=== PATIENT | female | born 1975 | race Caucasian/White ===

== ENCOUNTER 2016-10-07 09:25 | Emergency (ER) | payer MEDICAID ==
[2016-10-07] MEDS ORDERED: LORazepam 2 MG/ML MDV IVPUSH ONE (09:39)
[2016-10-07] MEDS ORDERED: diphenhydrAMINE 50 MG/ML SDV IVPUSH ONE (09:39)
[2016-10-07] MEDS ORDERED: Sodium Chloride 0.9% 1,000 ML IV ONE (09:39)
--- NOTE | 2016-10-07 09:40 | EDM.PDOC ---
ED HPI GENERAL MEDICAL PROBLEM - General Chief Complaint: Headache Stated Complaint: PT HAS MIGRAINE Time Seen by Provider: 10/07/16 09:40 Source of Information: Reports: Patient - History of Present Illness INITIAL COMMENTS - FREE TEXT/NARRATIVE: HISTORY AND PHYSICAL: History of present illness: []Patient has history of chronic migraines on nortriptyline she has had increased headaches 8 out of 10 today right unilateral with light sensitivity and noise sensitivity She also has concurrent sinus infection on right with copious nasal drainage tenderness on maxillary sinus and supraorbital sinus right greater than left mild symptoms on the left nares are patent copious nasal discharge on the right boggy inflamed mucosa on the left No fever nausea vomiting chills sweats Review of systems: As per history of present illness and below otherwise all systems reviewed and negative. Past medical history: As per history of present illness and as reviewed below otherwise noncontributory. Surgical history: As per history of present illness and as reviewed below otherwise noncontributory. Social history: No reported history of drug or alcohol abuse. Family history: As per history of present illness and as reviewed below otherwise noncontributory. Physical exam: HEENT: Atraumatic, normocephalic, pupils reactive, negative for conjunctival pallor or scleral icterus, mucous membranes moist, throat clear, neck supple, nontender, trachea midline. Lungs: Clear to auscultation, breath sounds equal bilaterally, chest nontender. Heart: S1S2, regular, negative for clicks, rubs, or JVD. Abdomen: Soft, nondistended, nontender. Negative for masses or hepatosplenomegaly. Negative for costovertebral tenderness. Pelvis: Stable nontender. Genitourinary: Deferred. Rectal: Deferred. Extremities: Atraumatic, negative for cords or calf pain. Neurovascular unremarkable. Neuro: Awake, alert, oriented. Cranial nerves II through XII unremarkable. Cerebellum unremarkable. Motor and sensory unremarkable throughout. Exam nonfocal. Diagnostics: [] Therapeutics: []1 L normal saline bolus Benadryl 50 mg IV Ativan 1 mg IV Bactrim double strength by mouth twice a day #20 no refill [id number] symptomatic therapies discussed Impression: []Migraine Acute sinusitis Definitive disposition and diagnosis as appropriate pending reevaluation and review of above. headache Pain Score (Numeric/FACES): 10 - Related Data Allergies Allergy/AdvReac Type Severity Reaction Status Date / Time codeine Allergy Swelling Verified 10/07/16 09:34 doxycycline Allergy Rash Verified 10/07/16 09:34 ketorolac tromethamine Allergy Hives Verified 10/07/16 09:34 [From Toradol] latex Allergy Anaphylactic Verified 10/07/16 09:34 Shock naproxen Allergy Hives Verified 10/07/16 09:34 Penicillins Allergy Rash Verified 10/07/16 09:34 tramadol Allergy Hives Verified 10/07/16 09:34 Home Meds: Home Meds ARIPiprazole [Abilify] 10 mg PO DAILY 10/07/16 [History] Nortriptyline 10 mg PO DAILY 10/07/16 [History] Past Medical History HEENT History: Reports: Other (See Below) Other HEENT History: previous migraines Cardiovascular History: Reports: None Respiratory History: Reports: Asthma Genitourinary History: Reports: None 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 , Other OB/BYN History: Molar and tubal , oophorectomy, c- sections x 2, hysterectomy Neurological History: Reports: Migraines Psychiatric History: Reports: None Endocrine/Metabolic History: Reports: Diabetes, Type II Hematologic History: Reports: None Immunologic History: Reports: None Oncologic (Cancer) History: Reports: None Dermatologic History: Reports: None - Infectious Disease History Infectious Disease History: Reports: MRSA - Past Surgical History Head Surgeries/Procedures: Reports: None HEENT Surgical History: Reports: Adenoidectomy, Myringotomy w Tube(s), Tonsillectomy GI Surgical History: Reports: Appendectomy, Cholecystectomy Female Surgical History: Reports: Section, D&C, Hysterectomy, Oophorectomy, Tubal Ligation Social & Family History - Family History Family Medical History: Noncontributory - Tobacco Use Smoking Status *Q: Current Every Day Smoker Years of Tobacco use: 30 Packs/Tins Daily: 1 - Alcohol Use Days Per Week of Alcohol Use: 0 - Recreational Drug Use Recreational Drug Use: No ED ROS GENERAL - Review of Systems Review Of Systems: ROS reveals no pertinent complaints other than HPI. ED EXAM, GENERAL - Physical Exam Exam: See Below Course - Vital Signs Last Recorded V/S: Last Vital Signs Temp 35.7 C 10/07/16 09:34 Pulse 96 10/07/16 09:34 Resp 18 10/07/16 09:34 BP 139/97 H 10/07/16 09:34 Pulse Ox 95 10/07/16 09:34 - Orders/Labs/Meds Orders: Active Orders 24 hr Category Date Time Status Sodium Chloride 0.9% [Normal Saline] 1,000 ml Med 10/07/16 09:39 Active IV STAT Medication Orders Sodium Chloride (Normal Saline) 1,000 mls @ 999 mls/hr IV STAT ONE Stop: 10/07/16 10:39 Meds: Medications Generic Name Dose Route Start Last Admin Trade Name Freq PRN Reason Stop Dose Admin Sodium Chloride 1,000 mls @ 999 mls/hr 10/07/16 09:39 Normal Saline IV 10/07/16 10:39 STAT ONE Discontinued Medications Generic Name Dose Route Start Last Admin Trade Name Freq PRN Reason Stop Dose Admin Diphenhydramine HCl 50 mg 10/07/16 09:39 Benadryl IVPUSH 10/07/16 09:40 ONETIME ONE Lorazepam 1 mg 10/07/16 09:39 Ativan IVPUSH 10/07/16 09:40 ONETIME ONE Departure - Departure Time of Disposition: 09:47 Disposition: Home, Self-Care 01 Condition: Good Clinical Impression: Migraine, Acute sinusitis - Discharge Information Forms: ED Department Discharge Additional Instructions: Medication as prescribed [id number] symptomatic therapy is discussed Return if symptoms persist or worsen Follow-up with primary care as needed The following information is given to patients seen in the emergency department who are being discharged to home. This information is to outline your options for follow-up care. We provide all patients seen in our emergency department with a follow-up referral. The need for follow-up, as well as the timing and circumstances, are variable depending upon the specifics of your emergency department visit. If you don't have a primary care physician on staff, we will provide you with a referral. We always advise you to contact your personal physician following an emergency department visit to inform them of the circumstance of the visit and for follow-up with them and/or the need for any referrals to a consulting specialist. The emergency department will also refer you to a specialist when appropriate. This referral assures that you have the opportunity for follow-up care with a specialist. All of these measure are taken in an effort to provide you with optimal care, which includes your follow-up. Under all circumstances we always encourage you to contact your private physician who remains a resource for coordinating your care. When calling for follow-up care, please make the office aware that this follow-up is from your recent emergency room visit. If for any reason you are refused follow-up, please contact the [facility] emergency department at and asked to speak to the emergency department charge nurse. - My Orders Last 24 Hours: My Active Orders 10/07/16 09:39 Sodium Chloride 0.9% [Normal Saline] 1,000 ml IV STAT - Assessment/Plan Last 24 Hours: My Active Orders 10/07/16 09:39 Sodium Chloride 0.9% [Normal Saline] 1,000 ml IV STAT
[2016-10-07] MEDS ORDERED: Meperidine PF 25 MG/ML Syringe IVPUSH ONE (10:56)
[2016-10-07] MEDS ORDERED: Meperidine PF 50 MG/ML Syringe IVPUSH ONE (11:00)
[2016-10-07 11:28] VITALS: BP 152/110
== END 2016-10-07 11:21 | disposition home or self-care (01) ==
LOC: MW.ED 09:25
DX: G43.909 Migraine, unspecified, not intractable, without status migrainosus (principal); J01.90 Acute sinusitis, unspecified; J45.909 Unspecified asthma, uncomplicated; E11.9 Type 2 diabetes mellitus without complications; F17.210 Nicotine dependence, cigarettes, uncomplicated; Z88.0 Allergy status to penicillin; Z88.6 Allergy status to analgesic agent; Z88.5 Allergy status to narcotic agent; Z90.49 Acquired absence of other specified parts of digestive tract; Z96.22 Myringotomy tube(s) status; Z98.890 Other specified postprocedural states
CPT/HCPCS: 96361; 96374; 96375; 99283; J1200; J2060; J2175; J7040; 99282

== ENCOUNTER 2016-10-26 14:05 | Emergency (ER) | payer MEDICAID ==
[2016-10-26] MEDS ORDERED: Sodium Chloride 0.9% 1,000 ML IV ONE (14:57)
[2016-10-26] MEDS ORDERED: Morphine 2 MG/ML Syringe IVPUSH ONE (15:37)
[2016-10-26] MEDS ORDERED: Ondansetron 4 MG/2 ML SDV IVPUSH ONE (15:37)
--- NOTE | 2016-10-26 15:54 | EDM.PDOC ---
ED HPI GENERAL MEDICAL PROBLEM - General Chief Complaint: Genitourinary Problem Stated Complaint: POSSIBLE KIDNEY STONES Time Seen by Provider: 10/26/16 14:06 Source of Information: Reports: Patient History Limitations: Reports: No Limitations - History of Present Illness INITIAL COMMENTS - FREE TEXT/NARRATIVE: History of present illness: []Patient is diabetic and has had diarrhea for 1 week patient thinks she is having kidney stones as her pain is more localized in her left flank radiating to her left lower quadrant. She has had kidney stones in the past and states it feels similar. She denies any fevers, chills or vomiting however she is nauseated. Review of systems: As per history of present illness and below otherwise all systems reviewed and negative. Past medical history: As per history of present illness and as reviewed below otherwise noncontributory. Surgical history: As per history of present illness and as reviewed below otherwise noncontributory. Social history: No reported history of drug or alcohol abuse. Family history: As per history of present illness and as reviewed below otherwise noncontributory. Physical exam: General: Well developed, well nourished in NAD HEENT: Atraumatic, normocephalic, pupils reactive, negative for conjunctival pallor or scleral icterus, mucous membranes moist, throat clear, neck supple, nontender, trachea midline. Lungs: Clear to auscultation, breath sounds equal bilaterally, chest nontender. Heart: S1S2, regular, negative for clicks, rubs, or JVD. Abdomen: Soft, nondistended, tender left upper quadrant and left lower quadrant without rebound or guarding. Negative for masses or hepatosplenomegaly. Negative for costovertebral tenderness. Pelvis: Stable nontender. Genitourinary: Deferred. Rectal: Deferred. Extremities: Atraumatic, negative for cords or calf pain. Neurovascular unremarkable. Neuro: Awake, alert, oriented. Cranial nerves II through XII unremarkable. Cerebellum unremarkable. Motor and sensory unremarkable throughout. Exam nonfocal. Diagnostics: []Patient had CBC and UA chemistries done showing normal white count, normal chemistries except for elevated glucose of 233 UA is negative she is not Therapeutics: []Patient was hydrated with normal saline given morphine for pain and Zofran for nausea Impression: []Diarrhea Plan: []Follow-up primary care increase fluids friend for nausea Definitive disposition and diagnosis as appropriate pending reevaluation and review of above. Left Flank to Pelvic Pain Score (Numeric/FACES): 8 - Related Data Allergies Allergy/AdvReac Type Severity Reaction Status Date / Time codeine Allergy Anaphylactic Verified 10/26/16 14:20 Shock doxycycline Allergy Rash Verified 10/26/16 14:20 ketorolac tromethamine Allergy Hives Verified 10/26/16 14:20 [From Toradol] latex Allergy Anaphylactic Verified 10/26/16 14:20 Shock naproxen Allergy Hives Verified 10/26/16 14:20 Penicillins Allergy Anaphylactic Verified 10/26/16 14:20 Shock tramadol Allergy Hives Verified 10/26/16 14:20 trazodone Allergy Hives Verified 10/26/16 14:21 valproic acid [From Depakene] Allergy Hives Verified 10/26/16 14:21 Home Meds: Home Meds ARIPiprazole [Abilify] 5 mg PO DAILY 10/07/16 [History] Nortriptyline 20 mg PO DAILY 10/07/16 [History] Insulin Regular, Human [Novolin R] 0 unit IJ ASDIRECTED 10/26/16 [History] Omeprazole 20 mg PO DAILY 10/26/16 [History] Zolpidem Tartrate [Zolpidem Tartrate] 5 mg PO DAILY 10/26/16 [History] Past Medical History HEENT History: Reports: Other (See Below) Other HEENT History: previous migraines Cardiovascular History: Reports: None Respiratory History: Reports: Asthma Genitourinary History: Reports: None 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 , Other OB/BYN History: Molar and tubal , oophorectomy, c- sections x 2, hysterectomy Neurological History: Reports: Migraines Psychiatric History: Reports: None Endocrine/Metabolic History: Reports: Diabetes, Type II Hematologic History: Reports: None Immunologic History: Reports: None Oncologic (Cancer) History: Reports: None Dermatologic History: Reports: None - Infectious Disease History Infectious Disease History: Reports: MRSA - Past Surgical History Head Surgeries/Procedures: Reports: None HEENT Surgical History: Reports: Adenoidectomy, Myringotomy w Tube(s), Tonsillectomy GI Surgical History: Reports: Appendectomy, Cholecystectomy Female Surgical History: Reports: Section, D&C, Hysterectomy, Oophorectomy, Tubal Ligation Social & Family History - Family History Family Medical History: Noncontributory - Tobacco Use Smoking Status *Q: Current Every Day Smoker Years of Tobacco use: 20 Packs/Tins Daily: 1 - Alcohol Use Days Per Week of Alcohol Use: 0 - Recreational Drug Use Recreational Drug Use: No ED ROS GENERAL - Review of Systems Review Of Systems: See Below (See history of present illness) ED EXAM, GI/ABD - Physical Exam Exam: See Below (See history of present illness) Course - Vital Signs Last Recorded V/S: Last Vital Signs Temp 36.0 C 10/26/16 14:24 Pulse 93 10/26/16 14:24 Resp 18 10/26/16 14:24 BP 136/72 10/26/16 14:24 Pulse Ox 97 10/26/16 14:24 - Orders/Labs/Meds Orders: Active Orders 24 hr Category Date Time Status Sodium Chloride 0.9% [Normal Saline] 1,000 ml Med 10/26/16 14:57 Active IV .Bolus Saline Lock Insert [OM.PC] Stat Oth 10/26/16 14:56 Ordered Medication Orders Sodium Chloride (Normal Saline) 1,000 mls @ 999 mls/hr IV .Bolus ONE Stop: 10/26/16 15:57 Last Admin: 10/26/16 15:15 Dose: 999 mls/hr Labs: Laboratory Tests 10/26/16 10/26/16 10/26/16 Range/Units 14:25 14:25 15:06 WBC 7.37 (4.0-11.0) K/uL RBC 4.35 (4.30-5.90) M/uL Hgb 13.2 (12.0-16.0) g/dL Hct 39.4 (36.0-46.0) % MCV 90.6 (80.0-98.0) fL MCH 30.3 (27.0-32.0) pg MCHC 33.5 (31.0-37.0) g/dL RDW Std Deviation 43.7 (28.0-62.0) fl RDW Coeff of Lora 13 (11.0-15.0) % Plt Count 283 (150-400) K/uL MPV 9.40 (7.40-12.00) fL Neut % (Auto) 44.6 L (48.0-80.0) % Lymph % (Auto) 45.9 H (16.0-40.0) % [place] % (Auto) 4.6 (0.0-15.0) % Eos % (Auto) 4.5 (0.0-7.0) % Baso % (Auto) 0.4 (0.0-1.5) % Neut # (Auto) 3.3 (1.4-5.7) K/uL Lymph # (Auto) 3.4 H (0.6-2.4) K/uL [place] # (Auto) 0.3 (0.0-0.8) K/uL Eos # (Auto) 0.3 (0.0-0.7) K/uL Baso # (Auto) 0.0 (0.0-0.1) K/uL Nucleated RBC % 0.0 /100WBC Nucleated RBCs # 0 K/uL Lactate (0.20-2.00) mmol/L Sodium (136-146) mmol/L Potassium (3.5-5.1) mmol/L Chloride (98-110) mmol/L Carbon Dioxide (21-31) mmol/L BUN (6.0-23.0) mg/dL Creatinine (0.6-1.5) mg/dL Est Cr Clr Drug Dosing mL/min Estimated GFR (MDRD) ml/min Glucose (60-110) mg/dL Calcium (8.8-10.8) mg/dL Total Bilirubin (0.1-1.5) mg/dL AST (5-40) IU/L ALT (8-54) IU/L Alkaline Phosphatase (40-150) Total Protein (6.0-8.0) g/dL Albumin (3.5-5.0) g/dL Globulin (2.0-3.5) g/dL Albumin/Globulin Ratio (1.3-2.8) Urine Color YELLOW Urine Appearance CLEAR Urine pH 5.5 (5.0-8.0) Ur Specific [place] 1.025 (1.001-1.035) Urine Protein NEGATIVE (NEGATIVE) mg/dL Urine Glucose (UA) 250 H (NEGATIVE) mg/dL Urine Ketones NEGATIVE (NEGATIVE) mg/dL Urine Occult Blood NEGATIVE (NEGATIVE) Urine Nitrite NEGATIVE (NEGATIVE) Urine Bilirubin NEGATIVE (NEGATIVE) Urine Urobilinogen 0.2 (<2.0) EU/dL Ur Leukocyte Esterase NEGATIVE (NEGATIVE) Urine RBC 0-1 (0-2/HPF) Urine WBC 0-1 (0-5/HPF) Ur Epithelial Cells OCCASIONAL (NONE-FEW) Urine Bacteria RARE (NEGATIVE) Urine HCG, Qual NEGATIVE (NEGATIVE) 10/26/16 10/26/16 Range/Units 15:06 15:06 WBC (4.0-11.0) K/uL RBC (4.30-5.90) M/uL Hgb (12.0-16.0) g/dL Hct (36.0-46.0) % MCV (80.0-98.0) fL MCH (27.0-32.0) pg MCHC (31.0-37.0) g/dL RDW Std Deviation (28.0-62.0) fl RDW Coeff of Lora (11.0-15.0) % Plt Count (150-400) K/uL MPV (7.40-12.00) fL Neut % (Auto) (48.0-80.0) % Lymph % (Auto) (16.0-40.0) % [place] % (Auto) (0.0-15.0) % Eos % (Auto) (0.0-7.0) % Baso % (Auto) (0.0-1.5) % Neut # (Auto) (1.4-5.7) K/uL Lymph # (Auto) (0.6-2.4) K/uL [place] # (Auto) (0.0-0.8) K/uL Eos # (Auto) (0.0-0.7) K/uL Baso # (Auto) (0.0-0.1) K/uL Nucleated RBC % /100WBC Nucleated RBCs # K/uL Lactate 2.0 (0.20-2.00) mmol/L Sodium 134 L (136-146) mmol/L Potassium 4.2 (3.5-5.1) mmol/L Chloride 100 (98-110) mmol/L Carbon Dioxide 23 (21-31) mmol/L BUN 24 H (6.0-23.0) mg/dL Creatinine 1.2 (0.6-1.5) mg/dL Est Cr Clr Drug Dosing 51.03 mL/min Estimated GFR (MDRD) 49.5 ml/min Glucose 233 H (60-110) mg/dL Calcium 9.3 (8.8-10.8) mg/dL Total Bilirubin 0.2 (0.1-1.5) mg/dL AST 19 (5-40) IU/L ALT 31 (8-54) IU/L Alkaline Phosphatase 98 (40-150) Total Protein 7.3 (6.0-8.0) g/dL Albumin 3.9 (3.5-5.0) g/dL Globulin 3.4 (2.0-3.5) g/dL Albumin/Globulin Ratio 1.2 L (1.3-2.8) Urine Color Urine Appearance Urine pH (5.0-8.0) Ur Specific [place] (1.001-1.035) Urine Protein (NEGATIVE) mg/dL Urine Glucose (UA) (NEGATIVE) mg/dL Urine Ketones (NEGATIVE) mg/dL Urine Occult Blood (NEGATIVE) Urine Nitrite (NEGATIVE) Urine Bilirubin (NEGATIVE) Urine Urobilinogen (<2.0) EU/dL Ur Leukocyte Esterase (NEGATIVE) Urine RBC (0-2/HPF) Urine WBC (0-5/HPF) Ur Epithelial Cells (NONE-FEW) Urine Bacteria (NEGATIVE) Urine HCG, Qual (NEGATIVE) Meds: Medications Generic Name Dose Route Start Last Admin Trade Name Freq PRN Reason Stop Dose Admin Sodium Chloride 1,000 mls @ 999 mls/hr 10/26/16 14:57 10/26/16 15:15 Normal Saline IV 10/26/16 15:57 999 mls/hr .Bolus ONE Administration Discontinued Medications Generic Name Dose Route Start Last Admin Trade Name Freq PRN Reason Stop Dose Admin Morphine Sulfate 4 mg 10/26/16 15:37 10/26/16 15:43 Morphine IVPUSH 10/26/16 15:38 4 mg ONETIME ONE Administration Ondansetron HCl 4 mg 10/26/16 15:37 10/26/16 15:43 Zofran IVPUSH 10/26/16 15:38 4 mg ONETIME ONE Administration Departure - Departure Time of Disposition: 15:53 Disposition: Home, Self-Care 01 Condition: Good Clinical Impression: Diarrhea Qualifiers: Diarrhea type: unspecified type Qualified Code(s): R19.7 - Diarrhea, unspecified - Discharge Information Forms: ED Department Discharge Additional Instructions: The following information is given to patients seen in the emergency department who are being discharged to home. This information is to outline your options for follow-up care. We provide all patients seen in our emergency department with a follow-up referral. The need for follow-up, as well as the timing and circumstances, are variable depending upon the specifics of your emergency department visit. If you don't have a primary care physician on staff, we will provide you with a referral. We always advise you to contact your personal physician following an emergency department visit to inform them of the circumstance of the visit and for follow-up with them and/or the need for any referrals to a consulting specialist. The emergency department will also refer you to a specialist when appropriate. This referral assures that you have the opportunity for follow-up care with a specialist. All of these measure are taken in an effort to provide you with optimal care, which includes your follow-up. Under all circumstances we always encourage you to contact your private physician who remains a resource for coordinating your care. When calling for follow-up care, please make the office aware that this follow-up is from your recent emergency room visit. If for any reason you are refused follow-up, please contact the [facility] Emergency Department at and asked to speak to the emergency department charge nurse. Increase fluids, Zofran for nausea, Tylenol for pain return if symptoms worsen or change or follow-up with your primary care physician [facility] [address] [place] [id number] - My Orders Last 24 Hours: My Active Orders 10/26/16 14:56 Saline Lock Insert [OM.PC] Stat 10/26/16 14:57 Sodium Chloride 0.9% [Normal Saline] 1,000 ml IV .Bolus - Assessment/Plan Last 24 Hours: My Active Orders 10/26/16 14:56 Saline Lock Insert [OM.PC] Stat 10/26/16 14:57 Sodium Chloride 0.9% [Normal Saline] 1,000 ml IV .Bolus
[2016-10-26] MEDS ORDERED: Alum Hydrox/Mag Hydrox/Simeth 15 ML, Lidocaine 2% 5 ML PO ONE ×2 (16:02)
[2016-10-26 16:42] VITALS: BP 126/89
== END 2016-10-26 16:41 | disposition home or self-care (01) ==
LOC: MW.ED 14:05
DX: R19.7 Diarrhea, unspecified (principal); J45.909 Unspecified asthma, uncomplicated; E11.9 Type 2 diabetes mellitus without complications; F17.210 Nicotine dependence, cigarettes, uncomplicated; Z88.5 Allergy status to narcotic agent; Z88.0 Allergy status to penicillin; Z88.1 Allergy status to other antibiotic agents; Z79.4 Long term (current) use of insulin; Z96.22 Myringotomy tube(s) status; Z90.49 Acquired absence of other specified parts of digestive tract; Z90.710 Acquired absence of both cervix and uterus; Z98.890 Other specified postprocedural states
CPT/HCPCS: 36415; 80053; 81001; 81025; 83605; 85025; 96361; 96374; 96375; 99284; A9270; J2270; J2405; J7040

== ENCOUNTER 2016-11-07 06:26 | Day surgery (SDC) | payer MEDICAID ==
[2016-11-07] MEDS ORDERED: Bupivacaine 0.25%/EPINEPHrine 1:200,000 10 ML SDV INJECT ONE (07:00)
[2016-11-07] MEDS ORDERED: Acetaminophen/HYDROcodone 325-5 MG Tab PO PRN (07:00)
[2016-11-07] MEDS ORDERED: Lactated Ringers 1,000 ML IV SCH (07:00)
[2016-11-07] MEDS ORDERED: Lidocaine 2% 5 ML SDV ONE (07:16)
[2016-11-07] MEDS ORDERED: fentaNYL 100 MCG/2 ML SDV ONE ×2 (07:16→08:16)
[2016-11-07] MEDS ORDERED: Propofol 200 MG/20 ML SDV ONE (07:16)
[2016-11-07] MEDS ORDERED: Midazolam 1 MG/ML 2 ML SDV ONE (07:16)
--- NOTE | 2016-11-07 07:20 | PCM.PREANE ---
Preanesthetic Assessment - Anesthesia/Transfusion/Family Hx Anesthesia History: Prior Anesthesia Without Reaction Other Type of Anesthesia Reaction Comment: aspirated in dental office under sedation for teeth removal Family History of Anesthesia Reaction: No Transfusion History: Prior Transfusion Without Reaction Intubation History: Unknown - Review of Systems General: No Symptoms Pulmonary: No Symptoms Cardiovascular: No Symptoms Gastrointestinal: No Symptoms Neurological: No Symptoms Other: Reports: None - Physical Assessment Height: 1.6 m Weight: 98.43 kg ASA Class: 2 Mental Status: Alert & Oriented x3 Airway Class: Mallampati = 3 Dentition: Reports: Normal Dentition Thyro-Mental Finger Breadths: 3 Mouth Opening Finger Breadths: 3 ROM/Head Extension: Full Lungs: Clear to Auscultation, Normal Respiratory Effort Cardiovascular: Regular Rate, Regular Rhythm - Allergies Allergies/Adverse Reactions: Allergies Allergy/AdvReac Type Severity Reaction Status Date / Time codeine Allergy Anaphylactic Verified 10/26/16 14:20 Shock doxycycline Allergy Rash Verified 10/26/16 14:20 ketorolac tromethamine Allergy Hives Verified 10/26/16 14:20 [From Toradol] latex Allergy Anaphylactic Verified 10/26/16 14:20 Shock naproxen Allergy Airway Verified 11/04/16 16:06 Tightness Penicillins Allergy Anaphylactic Verified 10/26/16 14:20 Shock tramadol Allergy Hives Verified 10/26/16 14:20 trazodone Allergy Hives Verified 10/26/16 14:21 valproic acid [From Depakene] Allergy Hives Verified 10/26/16 14:21 - Blood Blood Available: No - Anesthesia Plan Pre-Op Medication Ordered: None - Acknowledgements Anesthesia Type Planned: MAC Pt an Appropriate Candidate for the Planned Anesthesia: Yes Alternatives and Risks of Anesthesia Discussed w Pt/Guardian: Yes Pt/Guardian Understands and Agrees with Anesthesia Plan: Yes PreAnesthesia Questionnaire HEENT History: Reports: Other (See Below) Other HEENT History: wears glasses Cardiovascular History: Reports: None Respiratory History: Reports: Asthma, Sleep Apnea Other Respiratory History: was tested and told she had sleep apnea, has never had a CPAP Gastrointestinal History: Reports: GERD Genitourinary History: Reports: Renal Calculus Other Genitourinary History: able to pass stones 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 OB/BYN History: Molar and tubal , oophorectomy, c- sections x 2, hysterectomy Musculoskeletal History: Reports: Back Pain, Chronic, Neck Pain, Chronic, Other (See Below) Other Musculoskeletal History: degenerative spine disease Neurological History: Reports: Migraines, Other (See Below) Other Neuro History: has ruptured cervical discs Psychiatric History: Reports: Anxiety, Depression, Hallucinations, OCD, PTSD, Other (See Below) (post-traumatic stress syndrome, insomnia, MAJOR ANXIETY AND PANIC ATTACKS) Endocrine/Metabolic History: Reports: Diabetes, Type II, Obesity/BMI 30+ Hematologic History: Reports: Blood Transfusion(s) Immunologic History: Reports: Other (See Below) Other Immunologic History: MRSA Oncologic (Cancer) History: Reports: None Dermatologic History: Reports: Other (See Below) Other Dermatologic History: 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 - Infectious Disease History Infectious Disease History: Reports: MRSA - Past Surgical History Head Surgeries/Procedures: Reports: None HEENT Surgical History: Reports: Adenoidectomy, Myringotomy w Tube(s), Tonsillectomy GI Surgical History: Reports: Appendectomy, Cholecystectomy Female Surgical History: Reports: Section (x3), Oophorectomy, Other (See Below) Other Female Surgeries/Procedures: Laparoscopies x2 Musculoskeletal Surgical History: Reports: None - SUBSTANCE USE Smoking Status *Q: Current Every Day Smoker (< 1ppd) Tobacco Use Within Last Twelve Months: Cigarettes Days Per Week of Alcohol Use: 0 Recreational Drug Use History: No - HOME MEDS Home Medications: Home Meds ARIPiprazole [Abilify] 5 mg PO DAILY 10/07/16 [History] Nortriptyline 20 mg PO BEDTIME 10/07/16 [History] Omeprazole 20 mg PO DAILY 10/26/16 [History] Zolpidem Tartrate [Zolpidem Tartrate] 5 mg PO BEDTIME 10/26/16 [History] Albuterol Sulfate [Proair Hfa] 1 puff INH ASDIRECTED PRN 11/04/16 [History] Insulin Aspart [NovoLOG] 0 units SQ ASDIRECTED 11/04/16 [History] Phenazopyridine HCl [Pyridium] 200 mg PO BID 11/04/16 [History] Sertraline [Zoloft] 50 mg PO DAILY 11/04/16 [History] - CURRENT (IN HOUSE) MEDS Current Meds: Current Medications Hydrocodone Bitart/Acetaminophen ([place] 325-5 Mg) 1 tab PO Q4H PRN PRN Reason: Pain Lactated Ringer's (Ringers, Lactated) 1,000 mls @ 125 mls/hr IV ASDIRECTED MARYANA Last Admin: 11/07/16 06:52 Dose: 125 mls/hr Clindamycin Phosphate 600 mg/ (Premix) 50 mls @ 100 mls/hr IV ONETIME ONE Stop: 11/07/16 07:59 Last Admin: 11/07/16 06:58 Dose: 100 mls/hr Discontinued Medications Bupivacaine HCl/Epinephrine Bitart (Marcaine 0.25%/Epinephrine 1:200,000) 10 ml INJECT ONETIME ONE Stop: 11/07/16 07:01
[2016-11-07] MEDS ORDERED: Bupivacaine 0.25%/EPINEPHrine 1:200,000 10 ML SDV ONE ×2 (07:26→09:33)
[2016-11-07] MEDS ORDERED: Clindamycin Phosphate in D5W 600 MG in Premix Bag 50 BAG IV ONE ×2 (07:30)
[2016-11-07] MEDS ORDERED: diphenhydrAMINE 50 MG/ML SDV ONE (07:31)
[2016-11-07 09:58] VITALS: BP 127/73
--- NOTE | 2016-11-10 08:44 | PCM.OPNOTE ---
- General Post-Op/Procedure Note Date of Surgery/Procedure: 11/07/16 Operative Procedure(s): right carpal tunnel release, excision of left arm lesion 3cm with intermediate 3cm repair and excision of scalp lesion 1.5cm with simple repair, scar revision of the left eye webbing with local z plasties ( jumping man flap) 2.5cm2 total area. Pre Op Diagnosis: right carpla tunnel syndrome, 2 skin lesions and left eye canthal webbing from previous scar. Post-Op Diagnosis: Same Anesthesia Technique: General LMA Primary Surgeon: Janice Agee Gardener: Kiara Spence Complications: None Condition: Good
--- NOTE | 2016-11-10 14:29 | OR ---
SURGEON: GAYLE VALDES MD DATE OF PROCEDURE: 11/07/2016 PREOPERATIVE DIAGNOSES: 1. Right carpal tunnel syndrome. 2. Left eye medial canthal webbing. 3. 2 cm left arm, irritated red lesion. 4. Posterior scalp 1 cm lesion. POSTOPERATIVE DIAGNOSES: 1. Right carpal tunnel syndrome. 2. Left eye medial canthal webbing. 3. 2 cm left arm, irritated red lesion. 4. Posterior scalp 1 cm lesion. PROCEDURES: 1. Right carpal tunnel release. 2. Excision of left arm lesion 3 cm intermediate repair. 3. Excision of scalp lesion 1.5 cm with simple repair. 4. Scar revision of left eye webbing, with a local Z-plasty jumping man flap for 2.5 cm total area of local tissue rearrangement. INDICATIONS: Ms. Weinstein is a 41-year-old female with right carpal tunnel syndrome. Risks and benefits of right carpal tunnel release in addition to excision of the left arm lesion and scalp lesion with revision of the left inner canthal webbing was discussed with her. She would like to proceed. Risks were including, but not limited to, bleeding, infection, damage to underlying or overlying structures, possible need for future interventions and possible scarring. ANESTHESIA: General LMA. REHAB SERVICES AIDE: CHELY Kingsley. PROCEDURE IN DETAIL: After informed consent was obtained and placed on the chart, the patient was brought to the operating theater in supine position. After adequate general LMA anesthesia, the area was prepped and draped, a time-out was completed to confirm side and site. Attention was then paid to the right carpal tunnel 1st. A 15 blade was used to dissect through skin and subcutaneous tissues after the arm was exsanguinated and tourniquet was inflated to 200 mmHg. Once adequately done, dissection was carried through the skin and subcutaneous tissues until complete release of ligament. Dissection was then carried distally and proximally under direct visualization using a Littler scissor. Once adequately released attention was paid to irrigation and closure using a 5-0 nylon stitch in a horizontal mattress fashion. The tourniquet was deflated. The wound was dressed with Xeroform, fluffs, and a Kerlix gauze dressing and a 2-inch BRANDT wrap. The patient tolerated this well. Attention was then paid to the left arm and left posterior scalp lesion. These were prepped with Betadine and excised in an elliptical fashion after local anesthesia. Once adequately excised, the wounds were closed in an intermediate fashion on the left arm for total of 3 cm and simple closure on the scalp for 1.5 cm. These were dressed with Steri-Strips and Tegaderm on the arm and bacitracin scalp. Attention was then paid to the left eye lesion which was prepped and draped with Betadine cleansing solution and anesthetized with 0.25% Marcaine in a field block. Once adequately prepped, a jumping man flap was designed for local transposition of the tissues for total of 2.5 cm. Once this was designed, it was cut and in laid in the appropriate fashion to allow release of the wedding of the inner canthal area. Once this was completed, it was sutured in place using deep Monocryl stitches and 5-0 chromic for the skin. The patient tolerated this well and all counts of needles were correct at the end the case. FOLLOWUP INSTRUCTIONS: The patient will see us in clinic in approximately 10 days or sooner if any problems, questions, or concerns. The patient was given a prescription for pain control. GORAN / IDA /[id number]
== END 2016-11-07 09:45 | disposition home or self-care (01) ==
LOC: MW.SDS 06:26
PROVIDERS: ATTEND Plastic Surgery
PROC: 01N50ZZ Release Median Nerve, Open Approach (ICD-10-PCS; principal; 2016-11-07)
DX: D23.62 Other benign neoplasm of skin of left upper limb, including shoulder (principal); L82.1 Other seborrheic keratosis; G56.01 Carpal tunnel syndrome, right upper limb; H02.89 Other specified disorders of eyelid; G43.709 Chronic migraine without aura, not intractable, without status migrainosus; E11.9 Type 2 diabetes mellitus without complications; F41.0 Panic disorder [episodic paroxysmal anxiety]; J45.909 Unspecified asthma, uncomplicated; K21.9 Gastro-esophageal reflux disease without esophagitis; F17.210 Nicotine dependence, cigarettes, uncomplicated; G47.30 Sleep apnea, unspecified; E66.9 Obesity, unspecified; Z87.442 Personal history of urinary calculi; Z86.14 Personal history of Methicillin resistant Staphylococcus aureus infection; Z88.0 Allergy status to penicillin; Z88.1 Allergy status to other antibiotic agents; Z88.5 Allergy status to narcotic agent; Z88.6 Allergy status to analgesic agent; Z88.8 Allergy status to other drugs, medicaments and biological substances; Z91.040 Latex allergy status; Z79.4 Long term (current) use of insulin; Z79.899 Other long term (current) drug therapy; Z90.49 Acquired absence of other specified parts of digestive tract; Z90.710 Acquired absence of both cervix and uterus; Z90.721 Acquired absence of ovaries, unilateral; Z90.89 Acquired absence of other organs; Z98.890 Other specified postprocedural states; Z68.38 Body mass index [BMI] 38.0-38.9, adult
CPT/HCPCS: 11402; 11421; 12032; 14060; 64721; 82962; J1200; J2250; J3010; J7120; 00300; 88305; J2704

== ENCOUNTER 2017-04-17 13:26 | Emergency (ER) | payer MEDICAID ==
[2017-04-17 14:33] VITALS: BP 118/73
--- NOTE | 2017-04-17 14:59 | EDM.PDOC ---
ED HPI GENERAL MEDICAL PROBLEM - General Chief Complaint: Back Pain or Injury Stated Complaint: BACK AND HEAD PAIN Time Seen by Provider: 04/17/17 14:46 Source of Information: Reports: Patient History Limitations: Reports: No Limitations - History of Present Illness INITIAL COMMENTS - FREE TEXT/NARRATIVE: History of present illness: []Patient was in a store parking lot getting out of her truck and when she put her foot down she slid on the ice hitting the right side of her head on her truck door and landing on the ground. She immediately ambulated into the store to file an incident report then came to the ER complaining of pain in her head, neck, bilateral pelvic, low back and right elbow. Loss of consciousness. Patient complains of blurry vision and states that it's probably just her glucose. She has not had any vomiting or a headache, she denies any numbness or tingling in her extremities, abdominal pain, difficulty walking or pain anywhere else. Review of systems: As per history of present illness and below otherwise all systems reviewed and negative. Past medical history: As per history of present illness and as reviewed below otherwise noncontributory. Surgical history: As per history of present illness and as reviewed below otherwise noncontributory. Social history: No reported history of drug or alcohol abuse. Family history: As per history of present illness and as reviewed below otherwise noncontributory. Physical exam: General: Well developed, well nourished in NAD HEENT: Atraumatic, normocephalic, no scalp contusion or ecchymosis, pupils reactive, negative for conjunctival pallor or scleral icterus, mucous membranes moist, throat clear, TMs are clear neck supple no step-offs or tenderness to palpation, trachea midline. TMs show no hemotympanum, is no blood in her nares. Lungs: Clear to auscultation, breath sounds equal bilaterally, chest nontender. No crepitance Heart: S1S2, regular, negative for clicks, rubs, or JVD. Abdomen: Soft, nondistended, nontender. Negative for masses or hepatosplenomegaly. Negative for costovertebral tenderness. Low back diffuse tenderness bilateral lumbar area no vertebral tenderness there is no skin changes or ecchymosis. Pelvis: Stable to rock and nontender Genitourinary: Deferred. Rectal: Deferred. Extremities: Atraumatic, right elbow shows no sign of ecchymosis, swelling or contusion, MVI distally. negative for cords or calf pain. Neurovascular unremarkable. Neuro: Awake, alert, oriented. Cranial nerves II through XII unremarkable. Cerebellum unremarkable. Motor and sensory unremarkable throughout. Exam nonfocal. Diagnostics: []Glucose is 184, patient declined x-rays Therapeutics: []Percocet Norflex in the ED Impression: []Fall right elbow contusion, right scalp contusion, cervical and lumbar strain Plan: []Follow-up with Dr. Cartagena next week, Percocet and Flexeril for pain. Definitive disposition and diagnosis as appropriate pending reevaluation and review of above. Back Pain Score (Numeric/FACES): 5 - Related Data Allergies Allergy/AdvReac Type Severity Reaction Status Date / Time codeine Allergy Anaphylactic Verified 10/26/16 14:20 Shock doxycycline Allergy Rash Verified 10/26/16 14:20 ketorolac tromethamine Allergy Hives Verified 10/26/16 14:20 [From Toradol] latex Allergy Anaphylactic Verified 10/26/16 14:20 Shock naproxen Allergy Airway Verified 11/04/16 16:06 Tightness Penicillins Allergy Anaphylactic Verified 10/26/16 14:20 Shock tramadol Allergy Hives Verified 10/26/16 14:20 trazodone Allergy Hives Verified 10/26/16 14:21 valproic acid [From Depakene] Allergy Hives Verified 10/26/16 14:21 Home Meds: Home Meds ARIPiprazole [Abilify] 5 mg PO DAILY 10/07/16 [History] Nortriptyline 20 mg PO BEDTIME 10/07/16 [History] Omeprazole 20 mg PO DAILY 10/26/16 [History] Zolpidem Tartrate 5 mg PO BEDTIME 10/26/16 [History] Albuterol Sulfate [Proair Hfa] 1 puff INH ASDIRECTED PRN 11/04/16 [History] Insulin Aspart [NovoLOG] 0 units SQ ASDIRECTED 11/04/16 [History] Phenazopyridine HCl [Pyridium] 200 mg PO BID 11/04/16 [History] Sertraline [Zoloft] 50 mg PO DAILY 11/04/16 [History] Acetaminophen/HYDROcodone [[place] 325-5 MG] 1 tab PO Q4H PRN #30 tablet 11/07/16 [Rx] Cyclobenzaprine [Flexeril] 10 mg PO BID PRN #16 tab 04/17/17 [Rx] Diclofenac Sodium [IJD: Diclofenac Sodium] 75 mg PO .TWICE DAILY W MEALS PRN # 16 tab.ec 04/17/17 [Rx] Past Medical History HEENT History: Reports: Other (See Below) Other HEENT History: previous migraines Cardiovascular History: Reports: None Respiratory History: Reports: Asthma Other Respiratory History: was tested and told she had sleep apnea, has never had a CPAP Gastrointestinal History: Reports: GERD Genitourinary History: Reports: None Other Genitourinary History: able to pass stones 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 , Other OB/BYN History: Molar and tubal , oophorectomy, c- sections x 2, hysterectomy Musculoskeletal History: Reports: Back Pain, Chronic, Neck Pain, Chronic, Other (See Below) Other Musculoskeletal History: degenerative spine disease Neurological History: Reports: Migraines Other Neuro History: has ruptured cervical discs Psychiatric History: Reports: Anxiety, Depression, Hallucinations, OCD, PTSD, Other (See Below) (post-traumatic stress syndrome, insomnia, MAJOR ANXIETY AND PANIC ATTACKS) Endocrine/Metabolic History: Reports: Diabetes, Type II Hematologic History: Reports: None Immunologic History: Reports: None Other Immunologic History: MRSA Oncologic (Cancer) History: Reports: None Dermatologic History: Reports: None Other Dermatologic History: 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 - Infectious Disease History Infectious Disease History: Reports: MRSA - Past Surgical History Female Surgical History: Reports: Section, D&C, Hysterectomy, Oophorectomy, Tubal Ligation Social & Family History - Family History Family Medical History: Noncontributory - Tobacco Use Smoking Status *Q: Current Every Day Smoker (< 1ppd) Years of Tobacco use: 20 Packs/Tins Daily: 1 - Caffeine Use Caffeine Use: Reports: Coffee, Tea - Alcohol Use Days Per Week of Alcohol Use: 0 - Recreational Drug Use Recreational Drug Use: No Drug Use in Last 12 Months: No ED ROS GENERAL - Review of Systems Review Of Systems: See Below (See history of present illness) ED EXAM, GENERAL - Physical Exam Exam: See Below (See history of present illness) Course - Vital Signs Last Recorded V/S: Last Vital Signs Temp 97.7 F 04/17/17 14:30 Pulse 80 04/17/17 14:30 Resp 12 04/17/17 14:30 BP 118/73 04/17/17 14:30 Pulse Ox 94 L 04/17/17 14:30 - Orders/Labs/Meds Orders: Active Orders 24 hr Category Date Time Status POC Glucose [Blood Glucose Check, Bedside] [] ONETIME Care 04/17/17 14:51 Ordered Departure - Departure Time of Disposition: 15:10 Disposition: Home, Self-Care 01 Condition: Good Clinical Impression: Pain of multiple sites Fall Qualifiers: Encounter type: initial encounter Qualified Code(s): W19.XXXA - Unspecified fall, initial encounter - Discharge Information Prescriptions: Cyclobenzaprine [Flexeril] 10 mg PO BID PRN #16 tab PRN Reason: Pain Diclofenac Sodium [IJD: Diclofenac Sodium] 75 mg PO .TWICE DAILY W MEALS PRN # 16 tab.ec PRN Reason: Pain Referrals: Jose Cartagena MD [Primary Care Provider] - Additional Instructions: The following information is given to patients seen in the emergency department who are being discharged to home. This information is to outline your options for follow-up care. We provide all patients seen in our emergency department with a follow-up referral. The need for follow-up, as well as the timing and circumstances, are variable depending upon the specifics of your emergency department visit. If you don't have a primary care physician on staff, we will provide you with a referral. We always advise you to contact your personal physician following an emergency department visit to inform them of the circumstance of the visit and for follow-up with them and/or the need for any referrals to a consulting specialist. The emergency department will also refer you to a specialist when appropriate. This referral assures that you have the opportunity for follow-up care with a specialist. All of these measure are taken in an effort to provide you with optimal care, which includes your follow-up. Under all circumstances we always encourage you to contact your private physician who remains a resource for coordinating your care. When calling for follow-up care, please make the office aware that this follow-up is from your recent emergency room visit. If for any reason you are refused follow-up, please contact the [facility] Department at and asked to speak to the emergency department charge nurse. Percocet Flexeril for pain use ice to right elbow, neck, back and head. Follow-up with Dr. Cartagena next week return for if any symptoms worsen or change - My Orders Last 24 Hours: My Active Orders 04/17/17 14:51 POC Glucose [Blood Glucose Check, Bedside] [RC] ONETIME - Assessment/Plan Last 24 Hours: My Active Orders 04/17/17 14:51 POC Glucose [Blood Glucose Check, Bedside] [RC] ONETIME
[2017-04-17] MEDS ORDERED: Acetaminophen/oxyCODONE 325-5 MG Tab PO ONE (15:01)
== END 2017-04-17 15:35 | disposition home or self-care (01) ==
LOC: MW.ED 13:26
DX: S39.012A Strain of muscle, fascia and tendon of lower back, initial encounter (principal); S16.1XXA Strain of muscle, fascia and tendon at neck level, initial encounter; S50.01XA Contusion of right elbow, initial encounter; S00.03XA Contusion of scalp, initial encounter; J45.909 Unspecified asthma, uncomplicated; F32.9 Major depressive disorder, single episode, unspecified; F41.0 Panic disorder [episodic paroxysmal anxiety]; E11.9 Type 2 diabetes mellitus without complications; F17.210 Nicotine dependence, cigarettes, uncomplicated; K21.9 Gastro-esophageal reflux disease without esophagitis; Z79.4 Long term (current) use of insulin; Z79.899 Other long term (current) drug therapy; Z88.0 Allergy status to penicillin; Z88.1 Allergy status to other antibiotic agents; Z88.5 Allergy status to narcotic agent; Z88.6 Allergy status to analgesic agent; Z91.040 Latex allergy status; Z88.8 Allergy status to other drugs, medicaments and biological substances; V83.4XXA Person injured while boarding or alighting from special industrial vehicle, initial encounter; Y92.481 Parking lot as the place of occurrence of the external cause
CPT/HCPCS: 82962; 96372; 99283; A9270; J2360; 99284

== ENCOUNTER 2017-10-01 07:04 | Emergency (ER) | payer MEDICAID ==
[2017-10-01] MEDS ORDERED: Sodium Chloride 0.9% 10 ML Syringe FLUSH PRN (07:47)
[2017-10-01] MEDS ORDERED: Ondansetron 4 MG/2 ML SDV IVPUSH ONE (07:47)
[2017-10-01] MEDS ORDERED: Sodium Chloride 0.9% 1,000 ML IV ONE (07:47)
[2017-10-01] MEDS ORDERED: Sodium Chloride 0.9% 2.5 ML Syringe FLUSH PRN (07:47)
--- NOTE | 2017-10-01 07:50 | EDM.PDOC ---
ED HPI GENERAL MEDICAL PROBLEM - General Chief Complaint: Flank Pain Stated Complaint: KIDNEY STONES Time Seen by Provider: 10/01/17 07:15 Source of Information: Reports: Patient History Limitations: Reports: No Limitations - History of Present Illness INITIAL COMMENTS - FREE TEXT/NARRATIVE: History of present illness: []Patient has had a 10 day history of right flank pain that is worsening the last 2 days. She denies any fevers, chills, diarrhea or vomiting she complains of nausea. Patient has urinary hesitancy this morning she denies any blood in her urine or pain with urination. Review of systems: As per history of present illness and below otherwise all systems reviewed and negative. Past medical history: As per history of present illness and as reviewed below otherwise noncontributory. Surgical history: As per history of present illness and as reviewed below otherwise noncontributory. Social history: No reported history of drug or alcohol abuse. Family history: As per history of present illness and as reviewed below otherwise noncontributory. Physical exam: General: Well developed, well nourished in NAD HEENT: Atraumatic, normocephalic, pupils reactive, negative for conjunctival pallor or scleral icterus, mucous membranes moist, throat clear, neck supple, nontender, trachea midline. Lungs: Clear to auscultation, breath sounds equal bilaterally, chest nontender. Heart: S1S2, regular, negative for clicks, rubs, or JVD. Abdomen: Soft, nondistended, mild right upper abdominal tenderness no rebound or guarding. Negative for masses or hepatosplenomegaly. Mild right costovertebral tenderness. Pelvis: Stable nontender. Genitourinary: Deferred. Rectal: Deferred. Extremities: Atraumatic, negative for cords or calf pain. Neurovascular unremarkable. Neuro: Awake, alert, oriented. Cranial nerves II through XII unremarkable. Cerebellum unremarkable. Motor and sensory unremarkable throughout. Exam nonfocal. Diagnostics: []CBC normal chemistry normal except glucose of 226, LFTs slightly elevated UA negative for UTI, ultrasound shows fatty liver and hepatic cyst otherwise negative Therapeutics: []Morphine, Zofran, IV fluid. Impression: []Low back pain Plan: []Tramadol for pain follow-up with primary care use ice and heat to the back request physical therapy Definitive disposition and diagnosis as appropriate pending reevaluation and review of above. Right Flank Pain Score (Numeric/FACES): 8 - Related Data Allergies Allergy/AdvReac Type Severity Reaction Status Date / Time codeine Allergy Anaphylactic Verified 10/01/17 07:44 Shock doxycycline Allergy Rash Verified 10/01/17 07:44 ketorolac tromethamine Allergy Hives Verified 10/01/17 07:44 [From Toradol] latex Allergy Anaphylactic Verified 10/01/17 07:44 Shock naproxen Allergy Airway Verified 10/01/17 07:44 Tightness Penicillins Allergy Anaphylactic Verified 10/01/17 07:44 Shock tramadol Allergy Hives Verified 10/01/17 07:44 trazodone Allergy Hives Verified 10/01/17 07:44 valproic acid [From Depakene] Allergy Hives Verified 10/01/17 07:44 Home Meds: Home Meds Omeprazole 1 tab PO DAILY 10/26/16 [History] Albuterol Sulfate [Proair Hfa] 1 puff INH ASDIRECTED PRN 11/04/16 [History] Insulin Aspart [NovoLOG] 20 units SQ ASDIRECTED 11/04/16 [History] Cyclobenzaprine [Flexeril] 10 mg PO BID PRN #16 tab 04/17/17 [Rx] ALPRAZolam [Alprazolam] 1 mg PO DAILY 10/01/17 [History] Cariprazine Hydrochloride [Vraylar] 1 tab PO DAILY 10/01/17 [History] Insulin Detemir [Levemir] 60 unit SUBCUT DAILY 10/01/17 [History] Lisinopril 1 tab PO DAILY 10/01/17 [History] Varenicline Tartrate [Chantix] 1 each PO DAILY 10/01/17 [History] Vilazodone Hydrochloride [Viibryd] 20 mg PO DAILY 10/01/17 [History] Zolpidem Tartrate [Ambien] 1 tab PO BEDTIME 10/01/17 [History] atorvaSTATin [Lipitor] 1 tab PO BEDTIME 10/01/17 [History] diphenhydrAMINE HCl [Benadryl] 25 mg PO ASDIRECTED 10/01/17 [History] traMADol HCl [Tramadol HCl] 50 mg PO Q6H PRN #16 tablet 10/01/17 [Rx] Past Medical History HEENT History: Reports: Other (See Below) Other HEENT History: previous migraines Cardiovascular History: Reports: None Respiratory History: Reports: Asthma Other Respiratory History: was tested and told she had sleep apnea, has never had a CPAP Gastrointestinal History: Reports: GERD Genitourinary History: Reports: None Other Genitourinary History: able to pass stones INSIDE TRUCKER History: Reports: Ectopic , Other OB/BYN History: Molar and tubal , oophorectomy, c- sections x 2, hysterectomy Musculoskeletal History: Reports: Back Pain, Chronic, Neck Pain, Chronic, Other (See Below) Other Musculoskeletal History: degenerative spine disease Neurological History: Reports: Migraines Other Neuro History: has ruptured cervical discs Psychiatric History: Reports: Anxiety, Depression, Hallucinations, OCD, PTSD, Other (See Below) (post-traumatic stress syndrome, insomnia, MAJOR ANXIETY AND PANIC ATTACKS) Endocrine/Metabolic History: Reports: Diabetes, Type II Hematologic History: Reports: None Immunologic History: Reports: None Other Immunologic History: MRSA Oncologic (Cancer) History: Reports: None Dermatologic History: Reports: None Other Dermatologic History: 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 - Infectious Disease History Infectious Disease History: Reports: MRSA - Past Surgical History Female Surgical History: Reports: Section, D&C, Hysterectomy, Oophorectomy, Tubal Ligation Social & Family History - Family History Family Medical History: Noncontributory - Caffeine Use Caffeine Use: Reports: Coffee, Tea ED ROS GENERAL - Review of Systems Review Of Systems: See Below (See history of present illness) ED EXAM,LOWER BACK PAIN/INJURY - Physical Exam Exam: See Below (See history of present illness) Course - Vital Signs Last Recorded V/S: Last Vital Signs Temp 97.4 F 10/01/17 07:45 Pulse 78 10/01/17 09:58 Resp 15 10/01/17 09:58 BP 126/89 10/01/17 09:58 Pulse Ox 96 10/01/17 09:58 - Orders/Labs/Meds Orders: Active Orders 24 hr Category Date Time Status CULTURE URINE [RM] Stat Lab 10/01/17 07:25 Received UA W/MICROSCOPIC [URIN] Stat Lab 10/01/17 07:25 Ordered Sodium Chloride 0.9% [Saline Flush] Med 10/01/17 07:47 Active 10 ml FLUSH ASDIRECTED PRN Sodium Chloride 0.9% [Saline Flush] Med 10/01/17 07:47 Active 2.5 ml FLUSH ASDIRECTED PRN Saline Lock Insert [OM.PC] Stat Oth 10/01/17 07:47 Ordered Medication Orders Sodium Chloride (Saline Flush) 10 ml FLUSH ASDIRECTED PRN PRN Reason: Keep Vein Open Last Admin: 10/01/17 09:59 Dose: 10 ml Sodium Chloride (Saline Flush) 2.5 ml FLUSH ASDIRECTED PRN PRN Reason: Keep Vein Open Last Admin: 10/01/17 09:59 Dose: 2.5 ml Labs: Laboratory Tests 10/01/17 10/01/17 10/01/17 Range/Units 07:25 07:45 07:45 WBC 6.05 (4.0-11.0) K/uL RBC 4.06 L (4.30-5.90) M/uL Hgb 12.7 (12.0-16.0) g/dL Hct 38.0 (36.0-46.0) % MCV 93.6 (80.0-98.0) fL MCH 31.3 (27.0-32.0) pg MCHC 33.4 (31.0-37.0) g/dL RDW Std Deviation 41.3 (28.0-62.0) fl RDW Coeff of Lora 12 (11.0-15.0) % Plt Count 310 (150-400) K/uL MPV 9.40 (7.40-12.00) fL Neut % (Auto) 38.8 L (48.0-80.0) % Lymph % (Auto) 49.6 H (16.0-40.0) % Lewis % (Auto) 6.1 (0.0-15.0) % Eos % (Auto) 4.8 (0.0-7.0) % Baso % (Auto) 0.7 (0.0-1.5) % Neut # (Auto) 2.4 (1.4-5.7) K/uL Lymph # (Auto) 3.0 H (0.6-2.4) K/uL Lewis # (Auto) 0.4 (0.0-0.8) K/uL Eos # (Auto) 0.3 (0.0-0.7) K/uL Baso # (Auto) 0.0 (0.0-0.1) K/uL Sodium 138 (136-145) mmol/L Potassium 4.5 (3.5-5.1) mmol/L Chloride 103 (98-107) mmol/L Carbon Dioxide 25.1 (21.0-32.0) mmol/L BUN 12 (7.0-18.0) mg/dL Creatinine 0.9 (0.6-1.0) mg/dL Est Cr Clr Drug Dosing 67.36 mL/min Estimated GFR (MDRD) > 60.0 ml/min Glucose 227 H (74-106) mg/dL Calcium 8.4 L (8.5-10.1) mg/dL Total Bilirubin 0.3 (0.2-1.0) mg/dL AST 54 H (15-37) IU/L ALT 133 H (14-63) IU/L Alkaline Phosphatase 146 H (46-116) U/L Total Protein 7.0 (6.4-8.2) g/dL Albumin 3.5 (3.4-5.0) g/dL Globulin 3.5 (2.0-3.5) g/dL Albumin/Globulin Ratio 1.0 L (1.3-2.8) Urine Color YELLOW Urine Appearance CLEAR Urine pH 5.5 (5.0-8.0) Ur Specific [place] >= 1.030 (1.001-1.035) Urine Protein NEGATIVE (NEGATIVE) mg/dL Urine Glucose (UA) NEGATIVE (NEGATIVE) mg/dL Urine Ketones NEGATIVE (NEGATIVE) mg/dL Urine Occult Blood NEGATIVE (NEGATIVE) Urine Nitrite NEGATIVE (NEGATIVE) Urine Bilirubin NEGATIVE (NEGATIVE) Urine Urobilinogen 1.0 (<2.0) EU/dL Ur Leukocyte Esterase NEGATIVE (NEGATIVE) Urine RBC 0-1 (0-2/HPF) Urine WBC 1-2 (0-5/HPF) Ur Epithelial Cells MODERATE (NONE-FEW) Amorphous Sediment FEW (NEGATIVE) Urine Bacteria FEW (NEGATIVE) Meds: Medications Generic Name Dose Route Start Last Admin Trade Name Freq PRN Reason Stop Dose Admin Sodium Chloride 10 ml 10/01/17 07:47 10/01/17 09:59 Saline Flush FLUSH 10 ml ASDIRECTED PRN Administration Keep Vein Open Sodium Chloride 2.5 ml 10/01/17 07:47 10/01/17 09:59 Saline Flush FLUSH 2.5 ml ASDIRECTED PRN Administration Keep Vein Open Discontinued Medications Generic Name Dose Route Start Last Admin Trade Name Chang PRN Reason Stop Dose Admin Sodium Chloride 1,000 mls @ 999 mls/hr 10/01/17 07:47 10/01/17 08:16 Normal Saline IV 10/01/17 08:47 999 mls/hr .Bolus ONE Administration Morphine Sulfate 4 mg 10/01/17 07:51 10/01/17 08:22 Morphine IVPUSH 10/01/17 07:52 Not Given ONETIME ONE Morphine Sulfate Confirm 10/01/17 08:14 10/01/17 08:22 Morphine Administered 10/01/17 08:15 Not Given Dose 4 mg .ROUTE .STK-MED ONE Morphine Sulfate 4 mg 10/01/17 08:21 10/01/17 08:22 Morphine IVPUSH 10/01/17 08:22 4 mg ONETIME ONE Administration Ondansetron HCl 4 mg 10/01/17 07:47 10/01/17 08:18 Zofran IVPUSH 10/01/17 07:48 4 mg ONETIME ONE Administration Departure - Departure Time of Disposition: 10:20 Disposition: Home, Self-Care 01 Condition: Good Clinical Impression: Low back pain Qualifiers: Chronicity: unspecified Back pain laterality: right Sciatica presence: without sciatica Qualified Code(s): M54.5 - Low back pain - Discharge Information Prescriptions: traMADol HCl [Tramadol HCl] 50 mg PO Q6H PRN #16 tablet PRN Reason: Pain Referrals: Jose Cartagena MD [Primary Care Provider] - Forms: ED Department Discharge Additional Instructions: The following information is given to patients seen in the emergency department who are being discharged to home. This information is to outline your options for follow-up care. We provide all patients seen in our emergency department with a follow-up referral. The need for follow-up, as well as the timing and circumstances, are variable depending upon the specifics of your emergency department visit. If you don't have a primary care physician on staff, we will provide you with a referral. We always advise you to contact your personal physician following an emergency department visit to inform them of the circumstance of the visit and for follow-up with them and/or the need for any referrals to a consulting specialist. The emergency department will also refer you to a specialist when appropriate. This referral assures that you have the opportunity for follow-up care with a specialist. All of these measure are taken in an effort to provide you with optimal care, which includes your follow-up. Under all circumstances we always encourage you to contact your private physician who remains a resource for coordinating your care. When calling for follow-up care, please make the office aware that this follow-up is from your recent emergency room visit. If for any reason you are refused follow-up, please contact the [facility] Emergency Department at and asked to speak to the emergency department charge nurse. Tramadol for severe pain follow-up with your primary care use ice and heat to her back request physical therapy. [facility] [address] [place] [id number] - My Orders Last 24 Hours: My Active Orders 10/01/17 07:25 CULTURE URINE [RM] Stat UA W/MICROSCOPIC [URIN] Stat 10/01/17 07:47 Sodium Chloride 0.9% [Saline Flush] 10 ml FLUSH ASDIRECTED PRN Sodium Chloride 0.9% [Saline Flush] 2.5 ml FLUSH ASDIRECTED PRN Saline Lock Insert [OM.PC] Stat - Assessment/Plan Last 24 Hours: My Active Orders 10/01/17 07:25 CULTURE URINE [RM] Stat UA W/MICROSCOPIC [URIN] Stat 10/01/17 07:47 Sodium Chloride 0.9% [Saline Flush] 10 ml FLUSH ASDIRECTED PRN Sodium Chloride 0.9% [Saline Flush] 2.5 ml FLUSH ASDIRECTED PRN Saline Lock Insert [OM.PC] Stat
[2017-10-01] MEDS ORDERED: Morphine 4 MG/ML Syringe IVPUSH ONE (07:51)
[2017-10-01] MEDS ORDERED: Morphine 2 MG/ML Syringe ONE (08:14)
[2017-10-01] MEDS ORDERED: Morphine 2 MG/ML Syringe IVPUSH ONE (08:21)
[2017-10-01 08:29] LABS: CHLORIDE,CL 103 mmol/L (98-107); SODIUM,NA 138 mmol/L (136-145)
--- NOTE | 2017-10-01 09:42 | US ---
EXAMINATION: Right upper quadrant ultrasound HISTORY: Flank pain COMPARISON: CT dated 10/31/2016 TECHNIQUE: Grayscale and color Doppler imaging obtained of the right upper quadrant. FINDINGS: The visualized pancreas is normal. The liver is moderately increased in generalized echotex ture without a focal hepatic mass. There is a cyst noted within the right hepatic lobe measuring 3 cm . Common bile duct measures 7 mm however status post cholecystectomy. Right kidney measures 11.3 cm p ole-to-pole without evidence hydronephrosis. No ascites noted. IMPRESSION: 1. Moderate fatty infiltration of the liver. 2. Cholecystectomy. 3. Hepatic lobe cyst.
[2017-10-01] MEDS ORDERED: Ondansetron 4 MG Tab.DIS PO ONE (10:28)
[2017-10-01 10:34] VITALS: BP 127/78
== END 2017-10-01 10:35 | disposition home or self-care (01) ==
LOC: MW.ED 07:04
DX: M54.5 Low back pain (principal); J45.909 Unspecified asthma, uncomplicated; F41.9 Anxiety disorder, unspecified; F32.9 Major depressive disorder, single episode, unspecified; Z88.5 Allergy status to narcotic agent; Z88.8 Allergy status to other drugs, medicaments and biological substances; Z91.040 Latex allergy status; Z79.899 Other long term (current) drug therapy
CPT/HCPCS: 36415; 76705; 80053; 81001; 85025; 87086; 96361; 96374; 96375; 99284; A9270; J2270; J2405; J7040

== ENCOUNTER 2017-12-08 14:38 | Emergency (ER) | payer MEDICAID ==
[2017-12-08] MEDS ORDERED: Sodium Chloride 0.9% 1,000 ML IV ONE (14:54)
--- NOTE | 2017-12-08 14:55 | EDM.PDOC ---
ED HPI GENERAL MEDICAL PROBLEM - General Chief Complaint: General Stated Complaint: BLOCKED OUT Time Seen by Provider: 12/08/17 14:54 Source of Information: Reports: Patient - History of Present Illness INITIAL COMMENTS - FREE TEXT/NARRATIVE: HISTORY AND PHYSICAL: History of present illness: [Patient presents with neck pain 5 out of 10 rated his tolerable yet bothersome to the patient she does follow with chronic pain specialty clinic, her main complaint today is that of headache apparently she had a syncopal episode on Thursday falling after climbing a flight of stairs she did not fall down the stairs because sounds like collapsed top she does not recall the exact Ms. some of this however she awoke to her mother asking her if she was okay. That was 4 days prior to arrival, a day she complains of headache consistent with migraine as well as neck pain she does have chronic neck pain as well No fever nausea vomiting chills sweats no chest pain shortness breath headache dizziness palpitation no bowel or urine symptoms] Patient states she is unable to afford some of her medications Review of systems: As per history of present illness and below otherwise all systems reviewed and negative. Past medical history: As per history of present illness and as reviewed below otherwise noncontributory. Surgical history: As per history of present illness and as reviewed below otherwise noncontributory. Social history: No reported history of drug or alcohol abuse. Family history: As per history of present illness and as reviewed below otherwise noncontributory. Physical exam: HEENT: Atraumatic, normocephalic, pupils reactive, negative for conjunctival pallor or scleral icterus, mucous membranes moist, throat clear, neck supple, nontender, trachea midline. Lungs: Clear to auscultation, breath sounds equal bilaterally, chest nontender. Heart: S1S2, regular, negative for clicks, rubs, or JVD. Abdomen: Soft, nondistended, nontender. Negative for masses or hepatosplenomegaly. Negative for costovertebral tenderness. Pelvis: Stable nontender. Genitourinary: Deferred. Rectal: Deferred. Extremities: Atraumatic, negative for cords or calf pain. Neurovascular unremarkable. Neuro: Awake, alert, oriented. Cranial nerves II through XII unremarkable. Cerebellum unremarkable. Motor and sensory unremarkable throughout. Exam nonfocal. Diagnostics: [CBC CMP UA troponin Head CT no contrast Cervical spine no contrast ] Therapeutics: [Motrin Vasotec 0.625 mg IV ] regular insulin 5 mg IV 1 L normal saline bolus Fioricet Impression: Tension headache versus migraine [ chronic neck pain hyperglycemia Dehydration ] History of fall Definitive disposition and diagnosis as appropriate pending reevaluation and review of above. neck/back Pain Score (Numeric/FACES): 10 - Related Data Allergies Allergy/AdvReac Type Severity Reaction Status Date / Time codeine Allergy Anaphylactic Verified 12/08/17 14:48 Shock doxycycline Allergy Rash Verified 12/08/17 14:48 ketorolac tromethamine Allergy Hives Verified 12/08/17 14:48 [From Toradol] latex Allergy Anaphylactic Verified 12/08/17 14:48 Shock naproxen Allergy Airway Verified 12/08/17 14:48 Tightness Penicillins Allergy Anaphylactic Verified 12/08/17 14:48 Shock tramadol Allergy Hives Verified 12/08/17 14:48 trazodone Allergy Hives Verified 12/08/17 14:48 valproic acid [From Depakene] Allergy Hives Verified 12/08/17 14:48 Home Meds: Home Meds Omeprazole 1 tab PO DAILY 10/26/16 [History] Albuterol Sulfate [Proair Hfa] 1 puff INH ASDIRECTED PRN 11/04/16 [History] Insulin Aspart [NovoLOG] 20 units SQ ASDIRECTED 11/04/16 [History] ALPRAZolam [Alprazolam] 1 mg PO DAILY 10/01/17 [History] Insulin Detemir [Levemir] 60 unit SUBCUT DAILY 10/01/17 [History] Lisinopril 1 tab PO DAILY 10/01/17 [History] Vilazodone Hydrochloride [Viibryd] 20 mg PO DAILY 10/01/17 [History] Zolpidem Tartrate [Ambien] 1 tab PO BEDTIME 10/01/17 [History] atorvaSTATin [Lipitor] 1 tab PO BEDTIME 10/01/17 [History] diphenhydrAMINE HCl [Benadryl] 25 mg PO ASDIRECTED 10/01/17 [History] Baclofen 50 mg PO TID 12/08/17 [History] Past Medical History HEENT History: Reports: Other (See Below) Other HEENT History: previous migraines Cardiovascular History: Reports: None Respiratory History: Reports: Asthma Other Respiratory History: was tested and told she had sleep apnea, has never had a CPAP Gastrointestinal History: Reports: GERD Genitourinary History: Reports: None Other Genitourinary History: able to pass stones INSIDE SALES REPRESENTATIVE History: Reports: Ectopic , Other INSIDE SALES REPRESENTATIVE History: Molar and tubal , oophorectomy, c- sections x 2, hysterectomy Musculoskeletal History: Reports: Back Pain, Chronic, Neck Pain, Chronic, Other (See Below) Other Musculoskeletal History: degenerative spine disease Neurological History: Reports: Migraines Other Neuro History: has ruptured cervical discs Psychiatric History: Reports: Anxiety, Depression, Hallucinations, OCD, PTSD, Other (See Below) (post-traumatic stress syndrome, insomnia, MAJOR ANXIETY AND PANIC ATTACKS) Endocrine/Metabolic History: Reports: Diabetes, Type II Hematologic History: Reports: None Immunologic History: Reports: None Other Immunologic History: MRSA Oncologic (Cancer) History: Reports: None Dermatologic History: Reports: None Other Dermatologic History: 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 - Infectious Disease History Infectious Disease History: Reports: MRSA - Past Surgical History Female Surgical History: Reports: Section, D&C, Hysterectomy, Oophorectomy, Tubal Ligation Social & Family History - Family History Family Medical History: Noncontributory - Caffeine Use Caffeine Use: Reports: Coffee, Tea ED ROS GENERAL - Review of Systems Review Of Systems: See Below ED EXAM, GENERAL - Physical Exam Exam: See Below Course - Vital Signs Last Recorded V/S: Last Vital Signs Temp 96.0 F 12/08/17 14:48 Pulse 91 12/08/17 16:17 Resp 18 12/08/17 16:17 BP 170/88 H 12/08/17 16:38 Pulse Ox 98 12/08/17 16:17 - Orders/Labs/Meds Orders: Active Orders 24 hr Category Date Time Status EKG 12 Lead [EKG Documentation Completion] [RC] STAT Care 12/08/17 14:52 Active Cervical Spine wo Cont [CT] Stat Exams 12/08/17 14:52 Taken Head wo Cont [CT] Stat Exams 12/08/17 14:52 Taken UA W/MICROSCOPIC [URIN] Stat Lab 12/08/17 16:15 Ordered Labs: Laboratory Tests 12/08/17 12/08/17 12/08/17 Range/Units 14:47 15:00 15:00 WBC 7.85 (4.0-11.0) K/uL RBC 4.56 (4.30-5.90) M/uL Hgb 13.8 (12.0-16.0) g/dL Hct 40.5 (36.0-46.0) % MCV 88.8 (80.0-98.0) fL MCH 30.3 (27.0-32.0) pg MCHC 34.1 (31.0-37.0) g/dL RDW Std Deviation 41.3 (28.0-62.0) fl RDW Coeff of Lora 13 (11.0-15.0) % Plt Count 296 (150-400) K/uL MPV 9.60 (7.40-12.00) fL Nucleated RBC % 0.0 /100WBC Nucleated RBCs # 0 K/uL Sodium 131 L (136-145) mmol/L Potassium 4.5 (3.5-5.1) mmol/L Chloride 95 L (98-107) mmol/L Carbon Dioxide 27.9 (21.0-32.0) mmol/L BUN 23 H (7.0-18.0) mg/dL Creatinine 0.9 (0.6-1.0) mg/dL Est Cr Clr Drug Dosing 67.36 mL/min Estimated GFR (MDRD) > 60.0 ml/min Glucose 328 H (74-106) mg/dL POC Glucose 332 H (60-110) mg/dL Calcium 9.1 (8.5-10.1) mg/dL Total Bilirubin 0.3 (0.2-1.0) mg/dL AST 64 H (15-37) IU/L ALT 95 H (14-63) IU/L Alkaline Phosphatase 112 (46-116) U/L Total Protein 7.9 (6.4-8.2) g/dL Albumin 3.9 (3.4-5.0) g/dL Globulin 4.0 H (2.0-3.5) g/dL Albumin/Globulin Ratio 1.0 L (1.3-2.8) Urine Color Urine Appearance Urine pH (5.0-8.0) Ur Specific [place]way (1.001-1.035) Urine Protein (NEGATIVE) mg/dL Urine Glucose (UA) (NEGATIVE) mg/dL Urine Ketones (NEGATIVE) mg/dL Urine Occult Blood (NEGATIVE) Urine Nitrite (NEGATIVE) Urine Bilirubin (NEGATIVE) Urine Urobilinogen (<2.0) EU/dL Ur Leukocyte Esterase (NEGATIVE) Urine RBC (0-2/HPF) Urine WBC (0-5/HPF) Ur Epithelial Cells (NONE-FEW) Urine Bacteria (NEGATIVE) 12/08/17 Range/Units 16:15 WBC (4.0-11.0) K/uL RBC (4.30-5.90) M/uL Hgb (12.0-16.0) g/dL Hct (36.0-46.0) % MCV (80.0-98.0) fL MCH (27.0-32.0) pg MCHC (31.0-37.0) g/dL RDW Std Deviation (28.0-62.0) fl RDW Coeff of Lora (11.0-15.0) % Plt Count (150-400) K/uL MPV (7.40-12.00) fL Nucleated RBC % /100WBC Nucleated RBCs # K/uL Sodium (136-145) mmol/L Potassium (3.5-5.1) mmol/L Chloride (98-107) mmol/L Carbon Dioxide (21.0-32.0) mmol/L BUN (7.0-18.0) mg/dL Creatinine (0.6-1.0) mg/dL Est Cr Clr Drug Dosing mL/min Estimated GFR (MDRD) ml/min Glucose (74-106) mg/dL POC Glucose (60-110) mg/dL Calcium (8.5-10.1) mg/dL Total Bilirubin (0.2-1.0) mg/dL AST (15-37) IU/L ALT (14-63) IU/L Alkaline Phosphatase (46-116) U/L Total Protein (6.4-8.2) g/dL Albumin (3.4-5.0) g/dL Globulin (2.0-3.5) g/dL Albumin/Globulin Ratio (1.3-2.8) Urine Color YELLOW Urine Appearance CLEAR Urine pH 6.0 (5.0-8.0) Ur Specific [place] 1.020 (1.001-1.035) Urine Protein NEGATIVE (NEGATIVE) mg/dL Urine Glucose (UA) >=1000 (NEGATIVE) mg/dL Urine Ketones NEGATIVE (NEGATIVE) mg/dL Urine Occult Blood NEGATIVE (NEGATIVE) Urine Nitrite NEGATIVE (NEGATIVE) Urine Bilirubin NEGATIVE (NEGATIVE) Urine Urobilinogen 0.2 (<2.0) EU/dL Ur Leukocyte Esterase NEGATIVE (NEGATIVE) Urine RBC 0-1 (0-2/HPF) Urine WBC 0-1 (0-5/HPF) Ur Epithelial Cells RARE (NONE-FEW) Urine Bacteria RARE (NEGATIVE) Meds: Medications Discontinued Medications Generic Name Dose Route Start Last Admin Trade Name Reaganq PRN Reason Stop Dose Admin Enalaprilat 0.625 mg 12/08/17 16:19 12/08/17 16:38 Vasotec Iv IVPUSH 12/08/17 16:20 Not Given NOW STA Sodium Chloride 1,000 mls @ 999 mls/hr 12/08/17 14:54 12/08/17 15:07 Normal Saline IV 12/08/17 15:54 999 mls/hr STAT ONE Administration Ibuprofen 800 mg 12/08/17 15:57 12/08/17 16:19 Motrin PO 12/08/17 15:58 800 mg ONETIME ONE Administration Insulin Human Regular 5 unit 12/08/17 15:31 12/08/17 15:54 Novolin R IVPUSH 12/08/17 15:32 5 units ONETIME ONE Administration Protocol Departure - Departure Time of Disposition: 17:42 Disposition: Home, Self-Care 01 Condition: Good Clinical Impression: Headache - Discharge Information Referrals: PCP,None [Primary Care Provider] - Forms: ED Department Discharge Additional Instructions: The following information is given to patients seen in the emergency department who are being discharged to home. This information is to outline your options for follow-up care. We provide all patients seen in our emergency department with a follow-up referral. The need for follow-up, as well as the timing and circumstances, are variable depending upon the specifics of your emergency department visit. If you don't have a primary care physician on staff, we will provide you with a referral. We always advise you to contact your personal physician following an emergency department visit to inform them of the circumstance of the visit and for follow-up with them and/or the need for any referrals to a consulting specialist. The emergency department will also refer you to a specialist when appropriate. This referral assures that you have the opportunity for follow-up care with a specialist. All of these measure are taken in an effort to provide you with optimal care, which includes your follow-up. Under all circumstances we always encourage you to contact your private physician who remains a resource for coordinating your care. When calling for follow-up care, please make the office aware that this follow-up is from your recent emergency room visit. If for any reason you are refused follow-up, please contact the [facility] emergency department at and asked to speak to the emergency department charge nurse. - My Orders Last 24 Hours: My Active Orders 12/08/17 14:52 EKG 12 Lead [EKG Documentation Completion] [RC] STAT Cervical Spine wo Cont [CT] Stat Head wo Cont [CT] Stat 12/08/17 16:15 UA W/MICROSCOPIC [URIN] Stat - Assessment/Plan Last 24 Hours: My Active Orders 12/08/17 14:52 EKG 12 Lead [EKG Documentation Completion] [RC] STAT Cervical Spine wo Cont [CT] Stat Head wo Cont [CT] Stat 12/08/17 16:15 UA W/MICROSCOPIC [URIN] Stat
[2017-12-08 15:30] LABS: CHLORIDE,CL 95 mmol/L (98-107); SODIUM,NA 131 mmol/L (136-145)
[2017-12-08] MEDS ORDERED: Insulin Regular, Human 100 Units/ML 10 ML Vial IVPUSH ONE (15:31)
[2017-12-08] MEDS ORDERED: Ibuprofen 800 MG Tab PO ONE (15:57)
[2017-12-08] MEDS ORDERED: Enalaprilat 1.25 MG/ML SDV IVPUSH STA (16:19)
[2017-12-08 18:04] VITALS: BP 140/92
--- NOTE | 2017-12-09 09:14 | CT ---
EXAM DATE: 12/08/17 PATIENT'S AGE: 42 Patient: MIRA LEONARDO Facility: [place], [place] Site . Site : 1975 Study: CT Head [id number] 4:48:45 PM Ordering Physician: Doctor Catherine Final Report: INDICATION: Headaches. Syncopal episode TECHNIQUE: Non-contrast CT of the head is submitted. Compared to prior study from September 26, 2016 FINDINGS: The ventricles, sulci and gyri are of normal size, shape and contour. Midline structures are centrally located. No convincing evidence of intra- or extra- axial fluid collections. IMPRESSION: 1. No radiographic evidence of acute intracranial abnormalities. Please note that all CT scans at this facility use dose modulation, iterative reconstruction, and/or weight-based dosing when appropriate to reduce radiation dose to as low as reasonably achievable. Dictated by Austen Walton MD @ Dec 08 2017 5:02PM (Electronic Signature) Report Signed by Proxy. ADORE
--- NOTE | 2017-12-09 09:15 | CT ---
EXAM DATE: 12/08/17 PATIENT'S AGE: 42 Patient: MIRA LEONARDO Facility: [place], [place] Site . Site : 1975 Study: CT Spine Cervical [id number] 4:49:06 PM Ordering Physician: Sean Patel Final Report: INDICATION: Neck pain. History of syncopal episode TECHNIQUE: Non-contrast axial CT of the cervical spine with coronal and sagittal reconstructions. Compared to MRI of the cervical spine from October 28, 2017. FINDINGS: The overall stature and alignment of the cervical spine is within normal limits. Prevertebral soft tissues, cervical airway, dens and lateral masses are within normal limits. No evidence of bony fragments narrowing the central canal or visualized neural foramina. The minor degenerative changes seen on the prior MRI are less well defined on the CT. IMPRESSION: No radiographic evidence of acute osseous injury. Please note that all CT scans at this facility use dose modulation, iterative reconstruction, and/or weight-based dosing when appropriate to reduce radiation dose to as low as reasonably achievable. Dictated by Austen Walton MD @ Dec 08 2017 5:04PM (Electronic Signature) Report Signed by Proxy. ADORE
== END 2017-12-08 18:03 | disposition home or self-care (01) ==
LOC: MW.ED 14:38
DX: R51 Headache (principal); E86.0 Dehydration; M54.2 Cervicalgia; G89.29 Other chronic pain; E11.65 Type 2 diabetes mellitus with hyperglycemia; Z79.899 Other long term (current) drug therapy; Z88.0 Allergy status to penicillin; Z88.5 Allergy status to narcotic agent; Z91.040 Latex allergy status; Z79.4 Long term (current) use of insulin; Z88.8 Allergy status to other drugs, medicaments and biological substances
CPT/HCPCS: 36415; 70450; 72125; 80053; 81001; 82962; 85027; 93005; 96360; 99284; A9270; J7040; J1815-GY

== ENCOUNTER 2018-05-08 21:18 | Emergency (ER) | payer MEDICAID ==
[2018-05-08] MEDS ORDERED: Sodium Chloride 0.9% 2.5 ML Syringe FLUSH PRN (21:30)
[2018-05-08] MEDS ORDERED: Sodium Chloride 0.9% 10 ML Syringe FLUSH PRN (21:30)
[2018-05-08] MEDS ORDERED: Ketorolac 30 MG/ML SDV IVPUSH ONE (21:32)
[2018-05-08] MEDS ORDERED: Ondansetron 4 MG/2 ML SDV IVPUSH ONE (21:32)
--- NOTE | 2018-05-08 21:40 | EDM.PDOC ---
<Jorge Santillan - Last Filed: 05/09/18 00:34> ED HPI GENERAL MEDICAL PROBLEM - General Chief Complaint: Abdominal Pain Stated Complaint: ABD PAIN Time Seen by Provider: 05/08/18 21:36 - History of Present Illness INITIAL COMMENTS - FREE TEXT/NARRATIVE: I've seen and examined the patient and agree with the above Patient has right upper quadrant pain and history of cholecystectomy appendectomy and hysterectomy She has focal pain in the right upper quadrant with guarding or rebound no fever nausea vomiting chills sweats no chest pain shortness breath headache dizziness palpitation no bowel or urine symptoms Patient has 8 out of 10 and radiatesDown the right side HEENT grossly within normal limits Chest clear CV regular Abdomen obese soft tender in the right upper quadrant on deep palpation with guarding and rebound bowel sounds are present and normoactive Extremities full range of motion strength 5 out of 5 no edema PROJECT ENG alert nonfocal Lab as above abdomen pelvis with and without contrast Therapeutics Normal saline and Zofran Morphine 2 mg Insulin 10 units IV Impression Her glycemia Abdominal pain Cystic lesion on liver slight increase from previous at 3.3 cm Chronic history of baseline Medication noncompliance Definitive Disposition and diagnosis as appropriate pending reevaluation and review of above - Related Data Allergies Allergy/AdvReac Type Severity Reaction Status Date / Time codeine Allergy Anaphylactic Verified 05/08/18 21:26 Shock doxycycline Allergy Rash Verified 05/08/18 21:26 ketorolac tromethamine Allergy Hives Verified 05/08/18 21:26 [From Toradol] latex Allergy Anaphylactic Verified 05/08/18 21:26 Shock naproxen Allergy Airway Verified 05/08/18 21:26 Tightness Penicillins Allergy Anaphylactic Verified 05/08/18 21:26 Shock tramadol Allergy Hives Verified 05/08/18 21:26 trazodone Allergy Hives Verified 05/08/18 21:26 valproic acid [From Depakene] Allergy Hives Verified 05/08/18 21:26 Home Meds: Home Meds Omeprazole 1 tab PO DAILY 10/26/16 [History] Albuterol Sulfate [Proair Hfa] 1 puff INH ASDIRECTED PRN 11/04/16 [History] Insulin Aspart [NovoLOG] 20 units SQ ASDIRECTED 11/04/16 [History] ALPRAZolam [Alprazolam] 1 mg PO DAILY 10/01/17 [History] Insulin Detemir [Levemir] 60 unit SUBCUT DAILY 10/01/17 [History] Lisinopril 1 tab PO DAILY 10/01/17 [History] Vilazodone Hydrochloride [Viibryd] 20 mg PO DAILY 10/01/17 [History] Zolpidem Tartrate [Ambien] 1 tab PO BEDTIME 10/01/17 [History] atorvaSTATin [Lipitor] 1 tab PO BEDTIME 10/01/17 [History] diphenhydrAMINE HCl [Benadryl] 25 mg PO ASDIRECTED 10/01/17 [History] Baclofen 50 mg PO TID 12/08/17 [History] lamoTRIgine [Lamotrigine] 100 mg PO BEDTIME 05/08/18 [History] ED ROS GENERAL - Review of Systems Review Of Systems: See Below ED EXAM, GI/ABD - Physical Exam Exam: See Below Course - Vital Signs Last Recorded V/S: Last Vital Signs Temp 97.5 F 05/09/18 01:01 Pulse 94 05/09/18 01:01 Resp 18 05/09/18 01:01 BP 137/91 H 05/09/18 01:01 Pulse Ox 98 05/09/18 01:01 - Orders/Labs/Meds Orders: Active Orders 24 hr Category Date Time Status Saline Lock Insert [OM.PC] Stat Oth 05/08/18 21:30 Ordered Labs: Laboratory Tests 05/08/18 05/08/18 05/08/18 Range/Units 21:30 21:30 21:30 WBC 7.79 (4.0-11.0) K/uL RBC 4.41 (4.30-5.90) M/uL Hgb 13.2 (12.0-16.0) g/dL Hct 38.0 (36.0-46.0) % MCV 86.2 (80.0-98.0) fL MCH 29.9 (27.0-32.0) pg MCHC 34.7 (31.0-37.0) g/dL RDW Std Deviation 43.9 (28.0-62.0) fl RDW Coeff of Lora 14 (11.0-15.0) % Plt Count 218 (150-400) K/uL MPV 9.90 (7.40-12.00) fL Neut % (Auto) 71.8 (48.0-80.0) % Lymph % (Auto) 21.8 (16.0-40.0) % [place] % (Auto) 4.7 (0.0-15.0) % Eos % (Auto) 1.4 (0.0-7.0) % Baso % (Auto) 0.3 (0.0-1.5) % Neut # (Auto) 5.6 (1.4-5.7) K/uL Lymph # (Auto) 1.7 (0.6-2.4) K/uL [place] # (Auto) 0.4 (0.0-0.8) K/uL Eos # (Auto) 0.1 (0.0-0.7) K/uL Baso # (Auto) 0.0 (0.0-0.1) K/uL Nucleated RBC % 0.0 /100WBC Nucleated RBCs # 0 K/uL ABG pH (7.35-7.45) ABG pCO2 (35-45) mmHG ABG pO2 (75-100) mmHG ABG HCO3 (22-26) mEq/L ABG Total CO2 ABG Base Excess (-2.0-2.0) Sodium 130 L (136-145) mmol/L Potassium 3.8 (3.5-5.1) mmol/L Chloride 95 L (98-107) mmol/L Carbon Dioxide 24.0 (21.0-32.0) mmol/L BUN 12 (7.0-18.0) mg/dL Creatinine 0.8 (0.6-1.0) mg/dL Est Cr Clr Drug Dosing 75.78 mL/min Estimated GFR (MDRD) > 60.0 ml/min Glucose 485 H (74-106) mg/dL POC Glucose 447 H (60-110) mg/dL Calcium 9.1 (8.5-10.1) mg/dL Total Bilirubin 0.5 (0.2-1.0) mg/dL AST 14 L (15-37) IU/L ALT 28 (14-63) IU/L Alkaline Phosphatase 132 H (46-116) U/L Troponin I < 0.050 (0.000-0.056) ng/mL Total Protein 7.0 (6.4-8.2) g/dL Albumin 3.2 L (3.4-5.0) g/dL Globulin 3.8 (2.6-4.0) g/dL Albumin/Globulin Ratio 0.8 L (0.9-1.6) Amylase 26 (25-115) U/L Lipase 107 (73-393) U/L Urine Color Urine Appearance Urine pH (5.0-8.0) Ur Specific [place] (1.001-1.035) Urine Protein (NEGATIVE) mg/dL Urine Glucose (UA) (NEGATIVE) mg/dL Urine Ketones (NEGATIVE) mg/dL Urine Occult Blood (NEGATIVE) Urine Nitrite (NEGATIVE) Urine Bilirubin (NEGATIVE) Urine Urobilinogen (<2.0) EU/dL Ur Leukocyte Esterase (NEGATIVE) H. pylori IgG Antibody (NEG) 05/08/18 05/08/18 05/08/18 Range/Units 21:35 21:35 21:55 WBC (4.0-11.0) K/uL RBC (4.30-5.90) M/uL Hgb (12.0-16.0) g/dL Hct (36.0-46.0) % MCV (80.0-98.0) fL MCH (27.0-32.0) pg MCHC (31.0-37.0) g/dL RDW Std Deviation (28.0-62.0) fl RDW Coeff of Lora (11.0-15.0) % Plt Count (150-400) K/uL MPV (7.40-12.00) fL Neut % (Auto) (48.0-80.0) % Lymph % (Auto) (16.0-40.0) % [place] % (Auto) (0.0-15.0) % Eos % (Auto) (0.0-7.0) % Baso % (Auto) (0.0-1.5) % Neut # (Auto) (1.4-5.7) K/uL Lymph # (Auto) (0.6-2.4) K/uL [place] # (Auto) (0.0-0.8) K/uL Eos # (Auto) (0.0-0.7) K/uL Baso # (Auto) (0.0-0.1) K/uL Nucleated RBC % /100WBC Nucleated RBCs # K/uL ABG pH 7.504 H (7.35-7.45) ABG pCO2 31 L (35-45) mmHG ABG pO2 69 L (75-100) mmHG ABG HCO3 24 (22-26) mEq/L ABG Total CO2 21.4 ABG Base Excess 1.6 (-2.0-2.0) Sodium (136-145) mmol/L Potassium (3.5-5.1) mmol/L Chloride (98-107) mmol/L Carbon Dioxide (21.0-32.0) mmol/L BUN (7.0-18.0) mg/dL Creatinine (0.6-1.0) mg/dL Est Cr Clr Drug Dosing mL/min Estimated GFR (MDRD) ml/min Glucose (74-106) mg/dL POC Glucose (60-110) mg/dL Calcium (8.5-10.1) mg/dL Total Bilirubin (0.2-1.0) mg/dL AST (15-37) IU/L ALT (14-63) IU/L Alkaline Phosphatase (46-116) U/L Troponin I (0.000-0.056) ng/mL Total Protein (6.4-8.2) g/dL Albumin (3.4-5.0) g/dL Globulin (2.6-4.0) g/dL Albumin/Globulin Ratio (0.9-1.6) Amylase (25-115) U/L Lipase (73-393) U/L Urine Color YELLOW Urine Appearance CLEAR Urine pH 7.0 (5.0-8.0) Ur Specific [place] 1.010 (1.001-1.035) Urine Protein NEGATIVE (NEGATIVE) mg/dL Urine Glucose (UA) >=1000 (NEGATIVE) mg/dL Urine Ketones TRACE H (NEGATIVE) mg/dL Urine Occult Blood NEGATIVE (NEGATIVE) Urine Nitrite NEGATIVE (NEGATIVE) Urine Bilirubin NEGATIVE (NEGATIVE) Urine Urobilinogen 0.2 (<2.0) EU/dL Ur Leukocyte Esterase NEGATIVE (NEGATIVE) H. pylori IgG Antibody NEGATIVE (NEG) 05/08/18 Range/Units 23:13 WBC (4.0-11.0) K/uL RBC (4.30-5.90) M/uL Hgb (12.0-16.0) g/dL Hct (36.0-46.0) % MCV (80.0-98.0) fL MCH (27.0-32.0) pg MCHC (31.0-37.0) g/dL RDW Std Deviation (28.0-62.0) fl RDW Coeff of Lora (11.0-15.0) % Plt Count (150-400) K/uL MPV (7.40-12.00) fL Neut % (Auto) (48.0-80.0) % Lymph % (Auto) (16.0-40.0) % [place] % (Auto) (0.0-15.0) % Eos % (Auto) (0.0-7.0) % Baso % (Auto) (0.0-1.5) % Neut # (Auto) (1.4-5.7) K/uL Lymph # (Auto) (0.6-2.4) K/uL [place] # (Auto) (0.0-0.8) K/uL Eos # (Auto) (0.0-0.7) K/uL Baso # (Auto) (0.0-0.1) K/uL Nucleated RBC % /100WBC Nucleated RBCs # K/uL ABG pH (7.35-7.45) ABG pCO2 (35-45) mmHG ABG pO2 (75-100) mmHG ABG HCO3 (22-26) mEq/L ABG Total CO2 ABG Base Excess (-2.0-2.0) Sodium (136-145) mmol/L Potassium (3.5-5.1) mmol/L Chloride (98-107) mmol/L Carbon Dioxide (21.0-32.0) mmol/L BUN (7.0-18.0) mg/dL Creatinine (0.6-1.0) mg/dL Est Cr Clr Drug Dosing mL/min Estimated GFR (MDRD) ml/min Glucose (74-106) mg/dL POC Glucose 244 H (60-110) mg/dL Calcium (8.5-10.1) mg/dL Total Bilirubin (0.2-1.0) mg/dL AST (15-37) IU/L ALT (14-63) IU/L Alkaline Phosphatase (46-116) U/L Troponin I (0.000-0.056) ng/mL Total Protein (6.4-8.2) g/dL Albumin (3.4-5.0) g/dL Globulin (2.6-4.0) g/dL Albumin/Globulin Ratio (0.9-1.6) Amylase (25-115) U/L Lipase (73-393) U/L Urine Color Urine Appearance Urine pH (5.0-8.0) Ur Specific [place] (1.001-1.035) Urine Protein (NEGATIVE) mg/dL Urine Glucose (UA) (NEGATIVE) mg/dL Urine Ketones (NEGATIVE) mg/dL Urine Occult Blood (NEGATIVE) Urine Nitrite (NEGATIVE) Urine Bilirubin (NEGATIVE) Urine Urobilinogen (<2.0) EU/dL Ur Leukocyte Esterase (NEGATIVE) H. pylori IgG Antibody (NEG) Meds: Medications Discontinued Medications Generic Name Dose Route Start Last Admin Trade Name Freq PRN Reason Stop Dose Admin Sodium Chloride 1,000 mls @ 999 mls/hr 05/08/18 22:30 05/08/18 22:25 Normal Saline IV 999 mls/hr ASDIRECTED MARYANA Administration Insulin Human Regular 10 unit 05/08/18 21:54 05/08/18 22:25 Novolin R IVPUSH 05/08/18 21:55 10 unit ONETIME ONE Administration Protocol Iopamidol 100 ml 05/08/18 23:03 [id number] (76%) IVPUSH 05/08/18 23:04 ONETIME ONE Ketorolac Tromethamine 30 mg 05/08/18 21:32 05/08/18 21:45 Toradol IVPUSH 05/08/18 21:33 Not Given ONETIME ONE Morphine Sulfate 2 mg 05/08/18 22:44 05/08/18 22:50 Morphine IVPUSH 05/08/18 22:45 2 mg ONETIME ONE Administration Morphine Sulfate 2 mg 05/09/18 00:32 05/09/18 00:37 Morphine IVPUSH 05/09/18 00:33 2 mg ONETIME ONE Administration Morphine Sulfate Confirm 05/09/18 00:34 05/09/18 00:46 Morphine Administered 05/09/18 00:35 Not Given Dose 2 mg .ROUTE .STK-MED ONE Ondansetron HCl 8 mg 05/08/18 21:32 05/08/18 21:46 Zofran IVPUSH 05/08/18 21:33 8 mg ONETIME ONE Administration Sodium Chloride 10 ml 05/08/18 21:30 Saline Flush FLUSH ASDIRECTED PRN Keep Vein Open Sodium Chloride 2.5 ml 05/08/18 21:30 Saline Flush FLUSH ASDIRECTED PRN Keep Vein Open Departure - Departure Time of Disposition: 00:38 Disposition: Home, Self-Care 01 Condition: Good Clinical Impression: Abdominal pain, Noncompliance with medication regimen - Discharge Information Instructions: Abdominal Pain, Adult, [id number] Referrals: PCP,None [Primary Care Provider] - Forms: ED Department Discharge Additional Instructions: Percocet 3 per 325 by mouth every 6 when necessary #20 no refill Return if symptoms persist or worsen Follow-up with Jose Cartagena as scheduled May 13 Radiology recommends follow-up with ultrasound and/or MRI concerning the known cystic lesion on the liver The following information is given to patients seen in the emergency department who are being discharged to home. This information is to outline your options for follow-up care. We provide all patients seen in our emergency department with a follow-up referral. The need for follow-up, as well as the timing and circumstances, are variable depending upon the specifics of your emergency department visit. If you don't have a primary care physician on staff, we will provide you with a referral. We always advise you to contact your personal physician following an emergency department visit to inform them of the circumstance of the visit and for follow-up with them and/or the need for any referrals to a consulting specialist. The emergency department will also refer you to a specialist when appropriate. This referral assures that you have the opportunity for follow-up care with a specialist. All of these measure are taken in an effort to provide you with optimal care, which includes your follow-up. Under all circumstances we always encourage you to contact your private physician who remains a resource for coordinating your care. When calling for follow-up care, please make the office aware that this follow-up is from your recent emergency room visit. If for any reason you are refused follow-up, please contact the [facility] emergency department at and asked to speak to the emergency department charge nurse. - My Orders Last 24 Hours: My Active Orders 05/08/18 21:30 Saline Lock Insert [OM.PC] Stat - Assessment/Plan Last 24 Hours: My Active Orders 05/08/18 21:30 Saline Lock Insert [OM.PC] Stat <Olvin Jackson E - Last Filed: 05/09/18 14:04> ED HPI GENERAL MEDICAL PROBLEM - General Source of Information: Reports: Patient History Limitations: Reports: No Limitations - History of Present Illness INITIAL COMMENTS - FREE TEXT/NARRATIVE: HISTORY AND PHYSICAL: History of present illness: Patient is a 42-year-old female who presents to ED with concerns of right upper quadrant pain. She states that she has never had a pain like this before and has had her gallbladder, appendix, and total hysterectomy. She states that about 6-8 months ago she decided to stop her insulin as she is a type II diabetic. She states that she stopped it because she wanted the bruising on her abdomen to "heal". Patient states that she had intentions to start her insulin back up but was happy because she was starting to lose weight so had never started her insulin back up. She states that the right upper quadrant pain started yesterday but has continued to got worse and is now in 8 out of 10. Dates that the pain comes and goes but seems to have an underlying constant pain. She states the pain is worse when pressing in the area and better laying down. He is not taken anything for the pain. She denies any trauma or injuries. Patient denies fever, chills, pelvic pain, chest pain, difficulties breathing, or any other cardiovascular, respiratory, GI, or complaints. Review of systems: As per history of present illness and below otherwise all systems reviewed and negative. Past medical history: As per history of present illness and as reviewed below otherwise noncontributory. Surgical history: As per history of present illness and as reviewed below otherwise noncontributory. Social history: See social history for further information Family history: As per history of present illness and as reviewed below otherwise noncontributory. Physical exam: General: Patient is alert, oriented, and in no acute distress lying comfortably on the exam table. HEENT: Atraumatic, normocephalic, pupils equal and reactive bilaterally, negative for conjunctival pallor or scleral icterus, mucous membranes moist, TMs normal bilaterally, throat clear, neck supple, nontender, trachea midline. No drooling or trismus noted. No meningeal signs. No hot potato voice noted. Lungs: Clear to auscultation, breath sounds equal bilaterally, chest nontender. Heart: S1S2, regular rate and rhythm without overt murmur Abdomen: Moderate pain to palpation of the right upper quadrant, bowel sounds present throughout. Otherwise, soft, nondistended, nontender. Negative for masses or hepatosplenomegaly. Negative for costovertebral tenderness. Pelvis: Stable nontender. Genitourinary: Deferred. Rectal: Deferred. Skin: Intact, warm, dry. No lesions or rashes noted. Extremities: Atraumatic, negative for cords or calf pain. Neurovascular unremarkable. Neuro: Awake, alert, oriented. Cranial nerves II through XII unremarkable. Cerebellum unremarkable. Motor and sensory unremarkable throughout. Exam nonfocal. Notes: I initially saw the patient. Transfer of care to Dr. Estrada occurred with this patient as he took over from here. Diagnostics: CBC, CMP, UA, amylase, lipase, ABG Therapeutics: IV fluid, Zofran Prescription: Impression: Plan: Definitive disposition and diagnosis as appropriate pending reevaluation and review of above. Right Upper Abdominal Pain Score (Numeric/FACES): 10 Past Medical History HEENT History: Reports: Other (See Below) Other HEENT History: previous migraines Cardiovascular History: Reports: None Respiratory History: Reports: Asthma Other Respiratory History: was tested and told she had sleep apnea, has never had a CPAP Gastrointestinal History: Reports: GERD Genitourinary History: Reports: Renal Calculus Other Genitourinary History: able to pass stones SERVER ASSISTANT History: Reports: Ectopic , Other SERVER ASSISTANT History: Molar and tubal , oophorectomy, c- sections x 2, hysterectomy Musculoskeletal History: Reports: Back Pain, Chronic, Neck Pain, Chronic, Other (See Below) Other Musculoskeletal History: degenerative spine disease Neurological History: Reports: Migraines Other Neuro History: has ruptured cervical discs Psychiatric History: Reports: Anxiety, Depression, Hallucinations, OCD, PTSD, Other (See Below) Endocrine/Metabolic History: Reports: Diabetes, Type II Hematologic History: Reports: None Immunologic History: Reports: None Other Immunologic History: MRSA Oncologic (Cancer) History: Reports: None Dermatologic History: Reports: None Other Dermatologic History: 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 - Infectious Disease History Infectious Disease History: Reports: Chicken Pox, MRSA - Past Surgical History Head Surgeries/Procedures: Reports: None HEENT Surgical History: Reports: Adenoidectomy, Myringotomy w Tube(s), Tonsillectomy GI Surgical History: Reports: Appendectomy, Cholecystectomy Female Surgical History: Reports: Section, D&C, Hysterectomy, Oophorectomy, Tubal Ligation Social & Family History - Family History Family Medical History: Noncontributory - Tobacco Use Smoking Status *Q: Current Every Day Smoker Years of Tobacco use: 20 Packs/Tins Daily: 0.3 - Caffeine Use Caffeine Use: Reports: Coffee, Tea - Recreational Drug Use Recreational Drug Use: No ED ROS GENERAL - Review of Systems Review Of Systems: ROS reveals no pertinent complaints other than HPI. ED EXAM, GI/ABD - Physical Exam Exam: Not Obtained (See dictation) Course - Orders/Labs/Meds Labs: Laboratory Tests 05/08/18 05/08/18 05/08/18 Range/Units 21:30 21:30 21:30 WBC 7.79 (4.0-11.0) K/uL RBC 4.41 (4.30-5.90) M/uL Hgb 13.2 (12.0-16.0) g/dL Hct 38.0 (36.0-46.0) % MCV 86.2 (80.0-98.0) fL MCH 29.9 (27.0-32.0) pg MCHC 34.7 (31.0-37.0) g/dL RDW Std Deviation 43.9 (28.0-62.0) fl RDW Coeff of Lora 14 (11.0-15.0) % Plt Count 218 (150-400) K/uL MPV 9.90 (7.40-12.00) fL Neut % (Auto) 71.8 (48.0-80.0) % Lymph % (Auto) 21.8 (16.0-40.0) % [place] % (Auto) 4.7 (0.0-15.0) % Eos % (Auto) 1.4 (0.0-7.0) % Baso % (Auto) 0.3 (0.0-1.5) % Neut # (Auto) 5.6 (1.4-5.7) K/uL Lymph # (Auto) 1.7 (0.6-2.4) K/uL [place] # (Auto) 0.4 (0.0-0.8) K/uL Eos # (Auto) 0.1 (0.0-0.7) K/uL Baso # (Auto) 0.0 (0.0-0.1) K/uL Nucleated RBC % 0.0 /100WBC Nucleated RBCs # 0 K/uL ABG pH (7.35-7.45) ABG pCO2 (35-45) mmHG ABG pO2 (75-100) mmHG ABG HCO3 (22-26) mEq/L ABG Total CO2 ABG Base Excess (-2.0-2.0) Sodium 130 L (136-145) mmol/L Potassium 3.8 (3.5-5.1) mmol/L Chloride 95 L (98-107) mmol/L Carbon Dioxide 24.0 (21.0-32.0) mmol/L BUN 12 (7.0-18.0) mg/dL Creatinine 0.8 (0.6-1.0) mg/dL Est Cr Clr Drug Dosing 75.78 mL/min Estimated GFR (MDRD) > 60.0 ml/min Glucose 485 H (74-106) mg/dL POC Glucose 447 H (60-110) mg/dL Calcium 9.1 (8.5-10.1) mg/dL Total Bilirubin 0.5 (0.2-1.0) mg/dL AST 14 L (15-37) IU/L ALT 28 (14-63) IU/L Alkaline Phosphatase 132 H (46-116) U/L Troponin I < 0.050 (0.000-0.056) ng/mL Total Protein 7.0 (6.4-8.2) g/dL Albumin 3.2 L (3.4-5.0) g/dL Globulin 3.8 (2.6-4.0) g/dL Albumin/Globulin Ratio 0.8 L (0.9-1.6) Amylase 26 (25-115) U/L Lipase 107 (73-393) U/L Urine Color Urine Appearance Urine pH (5.0-8.0) Ur Specific [place] (1.001-1.035) Urine Protein (NEGATIVE) mg/dL Urine Glucose (UA) (NEGATIVE) mg/dL Urine Ketones (NEGATIVE) mg/dL Urine Occult Blood (NEGATIVE) Urine Nitrite (NEGATIVE) Urine Bilirubin (NEGATIVE) Urine Urobilinogen (<2.0) EU/dL Ur Leukocyte Esterase (NEGATIVE) H. pylori IgG Antibody (NEG) 05/08/18 05/08/18 05/08/18 Range/Units 21:35 21:35 21:55 WBC (4.0-11.0) K/uL RBC (4.30-5.90) M/uL Hgb (12.0-16.0) g/dL Hct (36.0-46.0) % MCV (80.0-98.0) fL MCH (27.0-32.0) pg MCHC (31.0-37.0) g/dL RDW Std Deviation (28.0-62.0) fl RDW Coeff of Lora (11.0-15.0) % Plt Count (150-400) K/uL MPV (7.40-12.00) fL Neut % (Auto) (48.0-80.0) % Lymph % (Auto) (16.0-40.0) % [place] % (Auto) (0.0-15.0) % Eos % (Auto) (0.0-7.0) % Baso % (Auto) (0.0-1.5) % Neut # (Auto) (1.4-5.7) K/uL Lymph # (Auto) (0.6-2.4) K/uL [place] # (Auto) (0.0-0.8) K/uL Eos # (Auto) (0.0-0.7) K/uL Baso # (Auto) (0.0-0.1) K/uL Nucleated RBC % /100WBC Nucleated RBCs # K/uL ABG pH 7.504 H (7.35-7.45) ABG pCO2 31 L (35-45) mmHG ABG pO2 69 L (75-100) mmHG ABG HCO3 24 (22-26) mEq/L ABG Total CO2 21.4 ABG Base Excess 1.6 (-2.0-2.0) Sodium (136-145) mmol/L Potassium (3.5-5.1) mmol/L Chloride (98-107) mmol/L Carbon Dioxide (21.0-32.0) mmol/L BUN (7.0-18.0) mg/dL Creatinine (0.6-1.0) mg/dL Est Cr Clr Drug Dosing mL/min Estimated GFR (MDRD) ml/min Glucose (74-106) mg/dL POC Glucose (60-110) mg/dL Calcium (8.5-10.1) mg/dL Total Bilirubin (0.2-1.0) mg/dL AST (15-37) IU/L ALT (14-63) IU/L Alkaline Phosphatase (46-116) U/L Troponin I (0.000-0.056) ng/mL Total Protein (6.4-8.2) g/dL Albumin (3.4-5.0) g/dL Globulin (2.6-4.0) g/dL Albumin/Globulin Ratio (0.9-1.6) Amylase (25-115) U/L Lipase (73-393) U/L Urine Color YELLOW Urine Appearance CLEAR Urine pH 7.0 (5.0-8.0) Ur Specific [place] 1.010 (1.001-1.035) Urine Protein NEGATIVE (NEGATIVE) mg/dL Urine Glucose (UA) >=1000 (NEGATIVE) mg/dL Urine Ketones TRACE H (NEGATIVE) mg/dL Urine Occult Blood NEGATIVE (NEGATIVE) Urine Nitrite NEGATIVE (NEGATIVE) Urine Bilirubin NEGATIVE (NEGATIVE) Urine Urobilinogen 0.2 (<2.0) EU/dL Ur Leukocyte Esterase NEGATIVE (NEGATIVE) H. pylori IgG Antibody NEGATIVE (NEG) 05/08/18 Range/Units 23:13 WBC (4.0-11.0) K/uL RBC (4.30-5.90) M/uL Hgb (12.0-16.0) g/dL Hct (36.0-46.0) % MCV (80.0-98.0) fL MCH (27.0-32.0) pg MCHC (31.0-37.0) g/dL RDW Std Deviation (28.0-62.0) fl RDW Coeff of Lora (11.0-15.0) % Plt Count (150-400) K/uL MPV (7.40-12.00) fL Neut % (Auto) (48.0-80.0) % Lymph % (Auto) (16.0-40.0) % [place] % (Auto) (0.0-15.0) % Eos % (Auto) (0.0-7.0) % Baso % (Auto) (0.0-1.5) % Neut # (Auto) (1.4-5.7) K/uL Lymph # (Auto) (0.6-2.4) K/uL [place] # (Auto) (0.0-0.8) K/uL Eos # (Auto) (0.0-0.7) K/uL Baso # (Auto) (0.0-0.1) K/uL Nucleated RBC % /100WBC Nucleated RBCs # K/uL ABG pH (7.35-7.45) ABG pCO2 (35-45) mmHG ABG pO2 (75-100) mmHG ABG HCO3 (22-26) mEq/L ABG Total CO2 ABG Base Excess (-2.0-2.0) Sodium (136-145) mmol/L Potassium (3.5-5.1) mmol/L Chloride (98-107) mmol/L Carbon Dioxide (21.0-32.0) mmol/L BUN (7.0-18.0) mg/dL Creatinine (0.6-1.0) mg/dL Est Cr Clr Drug Dosing mL/min Estimated GFR (MDRD) ml/min Glucose (74-106) mg/dL POC Glucose 244 H (60-110) mg/dL Calcium (8.5-10.1) mg/dL Total Bilirubin (0.2-1.0) mg/dL AST (15-37) IU/L ALT (14-63) IU/L Alkaline Phosphatase (46-116) U/L Troponin I (0.000-0.056) ng/mL Total Protein (6.4-8.2) g/dL Albumin (3.4-5.0) g/dL Globulin (2.6-4.0) g/dL Albumin/Globulin Ratio (0.9-1.6) Amylase (25-115) U/L Lipase (73-393) U/L Urine Color Urine Appearance Urine pH (5.0-8.0) Ur Specific [place] (1.001-1.035) Urine Protein (NEGATIVE) mg/dL Urine Glucose (UA) (NEGATIVE) mg/dL Urine Ketones (NEGATIVE) mg/dL Urine Occult Blood (NEGATIVE) Urine Nitrite (NEGATIVE) Urine Bilirubin (NEGATIVE) Urine Urobilinogen (<2.0) EU/dL Ur Leukocyte Esterase (NEGATIVE) H. pylori IgG Antibody (NEG)
[2018-05-08] MEDS ORDERED: Insulin Regular, Human 100 Units/ML 10 ML Vial IVPUSH ONE (21:54)
[2018-05-08 22:15] LABS: CHLORIDE,CL 95 mmol/L (98-107); SODIUM,NA 130 mmol/L (136-145)
[2018-05-08] MEDS ORDERED: Sodium Chloride 0.9% 1,000 ML IV SCH (22:30)
[2018-05-08] MEDS ORDERED: Morphine 2 MG/ML Syringe IVPUSH ONE (22:44)
[2018-05-08] MEDS ORDERED: Iopamidol 755 Mg/ML 100 ML Bottle IVPUSH ONE (23:03)
--- NOTE | 2018-05-09 00:20 | CT ---
INDICATION: Right abdominal pain TECHNIQUE: CT abdomen and pelvis acquired without and with IV contrast. 100 mL of Isovue 370 administered. COMPARISON: 10/31/2016 FINDINGS: Lower chest: Unremarkable. Liver: Hepatomegaly measuring 22.9 cm craniocaudally. Apparent mild steatosis. A multi lobulated low-attenuation lesion again seen in the medial segment of the left hepatic lobe, measuring 3.3 x 3.2 cm compared to 2.5 x 1.8 cm on the prior, demonstrating slightly higher than water internal attenuation. An adjacent area of increased hepatic attenuation could represent transient hepatic attenuation difference. There may be some peripheral enhancement along a small lobulation on image 48. Spleen: Splenomegaly measuring 14 cm craniocaudally. Pancreas: Unremarkable. Gallbladder and bile ducts: Cholecystectomy. Mild central biliary dilatation could be related to the postcholecystectomy state. Adrenal glands: Unremarkable. Kidneys: No hydronephrosis or discrete urolithiasis. GI tract: No bowel obstruction. The appendix is not seen. No significant pericolonic changes. Several sigmoid diverticula without diverticulitis. Stool throughout the colon. Vascular structures: Unremarkable. Lymph nodes: An enlarged portacaval lymph node, measuring 2.9 x 1.5 cm on image 44, increased in prominence. A borderline periportal lymph node on image 41. Miscellaneous: No significant free fluid or free air. Pelvic Organs: Hysterectomy. No discrete bladder abnormality seen. Bones: No significant change. A nestor transitional lumbosacral anatomy on the right. IMPRESSION: No evidence of an acute process in the abdomen or pelvis. Hepatomegaly and mild steatosis. A 3.3 cm multi lobulated low-attenuation hepatic lesion again seen, increased in size. The lesion is mildly higher than water in attenuation and there may be peripheral enhancement adjacent to a small lobulation. Recommend followup evaluation with sonography and, if indicated, followup with contrast MRI. An enlarged portacaval lymph node, increased in size. Splenomegaly. Dictated by Lionel Sherwood MD @ 05/09/2018 12:18:34 AM Please note that all CT scans at this facility use dose modulation, iterative reconstruction, and/or weight-based dosing when appropriate to reduce radiation dose to as low as reasonably achievable. Dictated by: Lionel Sherwood MD @ 05/09/2018 00:18:37 (Electronically Signed)
[2018-05-09] MEDS ORDERED: Morphine 2 MG/ML Syringe IVPUSH ONE (00:32)
[2018-05-09] MEDS ORDERED: Morphine 2 MG/ML Syringe ONE (00:34)
[2018-05-09 01:07] VITALS: BP 137/91
== END 2018-05-09 01:02 | disposition home or self-care (01) ==
LOC: MW.ED 21:18
DX: R10.11 Right upper quadrant pain (principal); E11.65 Type 2 diabetes mellitus with hyperglycemia; K76.89 Other specified diseases of liver; Z88.8 Allergy status to other drugs, medicaments and biological substances; Z88.5 Allergy status to narcotic agent; Z91.040 Latex allergy status; Z79.899 Other long term (current) drug therapy; Z79.4 Long term (current) use of insulin; Z91.14 Patient's other noncompliance with medication regimen
CPT/HCPCS: 36415; 36600; 74178; 80053; 81003; 82150; 82803; 82962; 83690; 84484; 85025; 86677; 96361; 96374; 96375; 96376; 99284; J2270; J2405; J7040; J1815-GY

== ENCOUNTER 2018-11-06 23:14 | Emergency (ER) | payer MEDICAID ==
--- NOTE | 2018-11-06 23:48 | EDM.PDOC ---
ED HPI GENERAL MEDICAL PROBLEM - General Chief Complaint: Diabetic Complaint Stated Complaint: LOW BLOOD SUGAR Time Seen by Provider: 11/06/18 23:46 - History of Present Illness INITIAL COMMENTS - FREE TEXT/NARRATIVE: HISTORY AND PHYSICAL: History of present illness: Patient's 43-year-old female history of diabetes who inadvertently took her fast acting insulin as opposed to her NPH and presents here approximately 50 minutes status post for observation on arrival here blood sugars 96 and patient asymptomatic Review of systems: As per history of present illness and below otherwise all systems reviewed and negative. Past medical history: As per history of present illness and as reviewed below otherwise noncontributory. Surgical history: As per history of present illness and as reviewed below otherwise noncontributory. Social history: No reported history of drug or alcohol abuse. Family history: As per history of present illness and as reviewed below otherwise noncontributory. Physical exam: HEENT: Atraumatic, normocephalic, pupils reactive, negative for conjunctival pallor or scleral icterus, mucous membranes moist, throat clear, neck supple, nontender, trachea midline. Lungs: Clear to auscultation, breath sounds equal bilaterally, chest nontender. Heart: S1S2, regular, negative for clicks, rubs, or JVD. Abdomen: Soft, nondistended, nontender. Negative for masses or hepatosplenomegaly. Negative for costovertebral tenderness. Pelvis: Stable nontender. Genitourinary: Deferred. Rectal: Deferred. Extremities: Atraumatic, negative for cords or calf pain. Neurovascular unremarkable. Neuro: Awake, alert, oriented. Cranial nerves II through XII unremarkable. Cerebellum unremarkable. Motor and sensory unremarkable throughout. Exam nonfocal. Diagnostics: CBC CMP Accu-Chek Therapeutics: IV environmental monitoring specialist Impression: #1 observation status post medication error Definitive disposition and diagnosis as appropriate pending reevaluation and review of above. Headache Pain Score (Numeric/FACES): 4 - Related Data Allergies Allergy/AdvReac Type Severity Reaction Status Date / Time codeine Allergy Anaphylactic Verified 11/06/18 23:18 Shock doxycycline Allergy Rash Verified 11/06/18 23:18 ketorolac tromethamine Allergy Hives Verified 11/06/18 23:18 [From Toradol] latex Allergy Anaphylactic Verified 11/06/18 23:18 Shock naproxen Allergy Airway Verified 11/06/18 23:18 Tightness Penicillins Allergy Anaphylactic Verified 11/06/18 23:18 Shock tramadol Allergy Hives Verified 11/06/18 23:18 trazodone Allergy Hives Verified 11/06/18 23:18 valproic acid [From Depakene] Allergy Hives Verified 11/06/18 23:18 Home Meds: Home Meds Omeprazole 1 tab PO DAILY 10/26/16 [History] Albuterol Sulfate [Proair Hfa] 1 puff INH ASDIRECTED PRN 11/04/16 [History] Insulin Aspart [NovoLOG] 20 units SQ ASDIRECTED 11/04/16 [History] ALPRAZolam [Alprazolam] 1 mg PO DAILY 10/01/17 [History] Insulin Detemir [Levemir] 60 unit SUBCUT DAILY 10/01/17 [History] Lisinopril 1 tab PO DAILY 10/01/17 [History] Vilazodone Hydrochloride [Viibryd] 20 mg PO DAILY 10/01/17 [History] Zolpidem Tartrate [Ambien] 1 tab PO BEDTIME 10/01/17 [History] atorvaSTATin [Lipitor] 1 tab PO BEDTIME 10/01/17 [History] diphenhydrAMINE HCl [Benadryl] 25 mg PO ASDIRECTED 10/01/17 [History] lamoTRIgine [Lamotrigine] 100 mg PO BEDTIME 05/08/18 [History] Past Medical History HEENT History: Reports: Other (See Below) Other HEENT History: previous migraines Cardiovascular History: Reports: None Respiratory History: Reports: Asthma Other Respiratory History: was tested and told she had sleep apnea, has never had a CPAP Gastrointestinal History: Reports: GERD Other Gastrointestinal History: E. 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: Reports: Ectopic , Other FILTER CLEANER History: Molar and tubal , oophorectomy, c- sections x 2, hysterectomy Musculoskeletal History: Reports: Back Pain, Chronic, Neck Pain, Chronic, Other (See Below) Other Musculoskeletal History: degenerative spine disease Neurological History: Reports: Migraines Other Neuro History: has ruptured cervical discs Psychiatric History: Reports: Anxiety, Depression, Hallucinations, OCD, PTSD, Other (See Below) Endocrine/Metabolic History: Reports: Diabetes, Type II Hematologic History: Reports: None Immunologic History: Reports: None Other Immunologic History: MRSA Oncologic (Cancer) History: Reports: None Dermatologic History: Reports: None Other Dermatologic History: 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 - Infectious Disease History Infectious Disease History: Reports: Chicken Pox, MRSA - Past Surgical History Head Surgeries/Procedures: Reports: None HEENT Surgical History: Reports: Adenoidectomy, Myringotomy w Tube(s), Tonsillectomy Respiratory Surgical History: Reports: None GI Surgical History: Reports: Appendectomy, Cholecystectomy Female Surgical History: Reports: Section, D&C, Hysterectomy, Oophorectomy, Tubal Ligation Social & Family History - Family History Family Medical History: Noncontributory - Tobacco Use Smoking Status *Q: Current Every Day Smoker Years of Tobacco use: 20 Packs/Tins Daily: 1 - Caffeine Use Caffeine Use: Reports: Soda - Recreational Drug Use Recreational Drug Use: No ED ROS GENERAL - Review of Systems Review Of Systems: ROS reveals no pertinent complaints other than HPI. ED EXAM GENERAL NO PERIP PULSE - Physical Exam Exam: See Below (See dictation) Course - Vital Signs Last Recorded V/S: Last Vital Signs Temp 35.9 C 11/06/18 23:24 Pulse 97 11/06/18 23:24 Resp 20 11/06/18 23:24 BP 168/95 H 11/06/18 23:24 Pulse Ox 96 11/06/18 23:24 - Orders/Labs/Meds Orders: Active Orders 24 hr Category Date Time Status CMP [COMPREHENSIVE METABOLIC PN,CMP] [CHEM] Stat Lab 11/06/18 23:26 Received Labs: Laboratory Tests 11/06/18 11/06/18 Range/Units 23:26 23:35 WBC 9.19 (4.0-11.0) K/uL RBC 4.10 L (4.30-5.90) M/uL Hgb 12.5 (12.0-16.0) g/dL Hct 37.0 (36.0-46.0) % MCV 90.2 (80.0-98.0) fL MCH 30.5 (27.0-32.0) pg MCHC 33.8 (31.0-37.0) g/dL RDW Std Deviation 43.6 (28.0-62.0) fl RDW Coeff of Lora 13 (11.0-15.0) % Plt Count 295 (150-400) K/uL MPV 9.00 (7.40-12.00) fL Neut % (Auto) 24.2 L (48.0-80.0) % Lymph % (Auto) 67.7 H (16.0-40.0) % [place] % (Auto) 5.4 (0.0-15.0) % Eos % (Auto) 2.3 (0.0-7.0) % Baso % (Auto) 0.4 (0.0-1.5) % Neut # (Auto) 2.2 (1.4-5.7) K/uL Lymph # (Auto) 6.2 H (0.6-2.4) K/uL [place] # (Auto) 0.5 (0.0-0.8) K/uL Eos # (Auto) 0.2 (0.0-0.7) K/uL Baso # (Auto) 0.0 (0.0-0.1) K/uL Nucleated RBC % 0.0 /100WBC Nucleated RBCs # 0 K/uL POC Glucose 96 (60-110) mg/dL Departure - Departure Time of Disposition: 23:47 Disposition: Home, Self-Care 01 Condition: Good Clinical Impression: Encounter for medical screening examination - Discharge Information Referrals: Jose Cartagena MD [Primary Care Provider] - Additional Instructions: The following information is given to patients seen in the emergency department who are being discharged to home. This information is to outline your options for follow-up care. We provide all patients seen in our emergency department with a follow-up referral. The need for follow-up, as well as the timing and circumstances, are variable depending upon the specifics of your emergency department visit. If you don't have a primary care physician on staff, we will provide you with a referral. We always advise you to contact your personal physician following an emergency department visit to inform them of the circumstance of the visit and for follow-up with them and/or the need for any referrals to a consulting specialist. The emergency department will also refer you to a specialist when appropriate. This referral assures that you have the opportunity for followup care with a specialist. All of these measure are taken in an effort to provide you with optimal care, which includes your followup. Under all circumstances we always encourage you to contact your private physician who remains a resource for coordinating your care. When calling for followup care, please make the office aware that this follow-up is from your recent emergency room visit. If for any reason you are refused follow-up, please contact the [facility] emergency department at and asked to speak to the emergency department charge nurse. Accu-Chek as discussed diet medication as directed follow-up primary medical doctor as needed as discussed and return as needed as discussed - My Orders Last 24 Hours: My Active Orders 11/06/18 23:26 CMP [COMPREHENSIVE METABOLIC PN,CMP] [CHEM] Stat - Assessment/Plan Last 24 Hours: My Active Orders 11/06/18 23:26 CMP [COMPREHENSIVE METABOLIC PN,CMP] [CHEM] Stat
[2018-11-06 23:58] LABS: BLOOD UREA NITROGEN,BUN 11 mg/dL (7.0-18.0); CARBON DIOXIDE,CO2 26.9 mmol/L (21.0-32.0); CHLORIDE,CL 106 mmol/L (98-107); GLUCOSE RANDOM 82 mg/dL (74-106); POTASSIUM,K 3.6 mmol/L (3.5-5.1); SODIUM,NA 140 mmol/L (136-145)
[2018-11-07 02:28] VITALS: BP 120/70; PULSE 72
== END 2018-11-07 02:28 | disposition home or self-care (01) ==
LOC: MW.ED 23:14
DX: Z13.9 Encounter for screening, unspecified (principal); E11.9 Type 2 diabetes mellitus without complications; F41.9 Anxiety disorder, unspecified; F32.9 Major depressive disorder, single episode, unspecified; F43.10 Post-traumatic stress disorder, unspecified; F42.9 Obsessive-compulsive disorder, unspecified; G47.30 Sleep apnea, unspecified; J45.909 Unspecified asthma, uncomplicated; F17.210 Nicotine dependence, cigarettes, uncomplicated; K21.9 Gastro-esophageal reflux disease without esophagitis; Z88.5 Allergy status to narcotic agent; Z88.1 Allergy status to other antibiotic agents; Z88.6 Allergy status to analgesic agent; Z91.040 Latex allergy status; Z88.0 Allergy status to penicillin; Z88.8 Allergy status to other drugs, medicaments and biological substances; Z79.899 Other long term (current) drug therapy; Z79.51 Long term (current) use of inhaled steroids; Z79.4 Long term (current) use of insulin
CPT/HCPCS: 36415; 80053; 82962; 85025; 99282; 99284

== ENCOUNTER 2019-06-03 10:50 | Emergency (ER) | payer MEDICARE, MEDICAID ==
[2019-06-03 11:09] VITALS: BP 122/78; PULSE 99
--- NOTE | 2019-06-03 11:24 | EDM.PDOC ---
ED HPI GENERAL MEDICAL PROBLEM - General Chief Complaint: Chest Pain Stated Complaint: RIGHT SIDE RIB PAIN Time Seen by Provider: 06/03/19 11:20 Source of Information: Reports: Patient History Limitations: Reports: No Limitations - History of Present Illness INITIAL COMMENTS - FREE TEXT/NARRATIVE: HISTORY AND PHYSICAL: History of present illness: Patient is a 43-year-old female who presents to the emergency room today with complaints of right anterior chest wall pain after injury. She states she was leaning over the couch to pick something off the ground when she felt a popping sensation to her right anterior chest. Since then she has pain with taking in deep breaths or movement of the chest wall or palpation of the area. Pain is not constant and it does not radiate. Patient denies any fever, chills, headache, change in vision, syncope or near syncope. Denies any back pain, shortness of breath or cough. Denies any GI or symptoms. Patient has been eating and drinking appropriately. Review of systems: As per history of present illness and below otherwise all systems reviewed and negative. Past medical history: As per history of present illness and as reviewed below otherwise noncontributory. Surgical history: As per history of present illness and as reviewed below otherwise noncontributory. Social history: See social history for further information Family history: As per history of present illness and as reviewed below otherwise noncontributory. Physical exam: General: Well-developed and well-nourished 43-year-old female. Alert and oriented. Nontoxic-appearing and in no acute distress. HEENT: Atraumatic, normocephalic, pupils equal and reactive bilaterally, negative for conjunctival pallor or scleral icterus, mucous membranes moist, TMs normal bilaterally, throat clear, neck supple, nontender, trachea midline. No drooling or trismus noted. No meningeal signs. No hot potato voice noted. Lungs: Clear to auscultation, breath sounds equal bilaterally, right anterior lower rib cage pain with palpation. Heart: S1S2, regular rate and rhythm without overt murmur Abdomen: Soft, nondistended, nontender. Negative for masses or hepatosplenomegaly. Negative for costovertebral tenderness. Pelvis: Stable nontender. Skin: Intact, warm, dry. No evidence of shingles lesions. No lesions or rashes noted. Extremities: Atraumatic, moves all extremities per self without difficulty or deficits, negative for cords or calf pain. Neurovascular unremarkable. Neuro: Awake, alert, oriented. Cranial nerves II through XII unremarkable. Cerebellum unremarkable. Motor and sensory unremarkable throughout. Exam nonfocal. Notes: Low suspicion of any cardiac involvement. Chest x-ray shows no acute findings. Will treat as a muscular strain with Flexeril, as she does have multiple drug allergies and prefers not to take many [id number] medications. She states she has been using gentle heat and ibuprofen with minimal relief. Supportive care measures were reviewed and discussed. Voices understanding and is agreeable to plan of care. Denies any further questions or concerns at this time. Diagnostics: Right rib with chest Therapeutics: None Prescription: Flexeril Impression: Right chest wall pain Plan: 1. When resting please lay on a flat firm surface. Limit your immobility to prevent muscle stiffness. Get up to ambulate/move around/gentle stretching multiple times throughout the day. May alternate heat and ice to the painful areas 2. Tylenol and Ibuprofen as needed for back pain. Otherwise take the prescribed Flexeril as directed. Flexeril as a muscle relaxant, this medication may cause drowsiness a do not take it will driving her needing to be functioning outside of the house. 3. Please follow-up with your primary care provider as we discussed. Return to the ED as needed and as discussed. Definitive disposition and diagnosis as appropriate pending reevaluation and review of above. right ribs Pain Score (Numeric/FACES): 6 - Related Data Allergies Allergy/AdvReac Type Severity Reaction Status Date / Time codeine Allergy Anaphylactic Verified 06/03/19 11:09 Shock doxycycline Allergy Rash Verified 06/03/19 11:09 ketorolac tromethamine Allergy Hives Verified 06/03/19 11:09 [From Toradol] latex Allergy Anaphylactic Verified 06/03/19 11:09 Shock naproxen Allergy Airway Verified 06/03/19 11:09 Tightness Penicillins Allergy Anaphylactic Verified 06/03/19 11:09 Shock tramadol Allergy Hives Verified 06/03/19 11:09 trazodone Allergy Hives Verified 06/03/19 11:09 valproic acid [From Depakene] Allergy Hives Verified 06/03/19 11:09 Home Meds: Home Meds Omeprazole 40 mg PO DAILY 10/26/16 [History] Albuterol Sulfate [Proair Hfa] 1 puff INH ASDIRECTED PRN 11/04/16 [History] Insulin Aspart [NovoLOG] 20 units SQ ASDIRECTED 11/04/16 [History] ALPRAZolam [Alprazolam] 1 mg PO DAILY PRN 10/01/17 [History] Insulin Detemir [Levemir] 60 unit SUBCUT DAILY 10/01/17 [History] Lisinopril 1 tab PO DAILY 10/01/17 [History] Vilazodone Hydrochloride [Viibryd] 40 mg PO DAILY 10/01/17 [History] Zolpidem Tartrate [Ambien] 1 tab PO BEDTIME 10/01/17 [History] atorvaSTATin [Lipitor] 1 tab PO BEDTIME 10/01/17 [History] diphenhydrAMINE HCl [Benadryl] 25 mg PO ASDIRECTED 10/01/17 [History] lamoTRIgine [Lamotrigine] 150 mg PO BEDTIME 05/08/18 [History] Cyclobenzaprine [Flexeril] 10 mg PO TID PRN #21 tab 06/03/19 [Rx] Past Medical History HEENT History: Reports: Other (See Below) Other HEENT History: previous migraines Cardiovascular History: Reports: None Respiratory History: Reports: Asthma Other Respiratory History: was tested and told she had sleep apnea, has never had a CPAP Gastrointestinal History: Reports: GERD Other Gastrointestinal History: E. 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: Reports: Ectopic , Other BUILDING MANAGER History: Molar and tubal , oophorectomy, c- sections x 2, hysterectomy Musculoskeletal History: Reports: Back Pain, Chronic, Neck Pain, Chronic, Other (See Below) Other Musculoskeletal History: degenerative spine disease Neurological History: Reports: Migraines Other Neuro History: has ruptured cervical discs Psychiatric History: Reports: Anxiety, Depression, Hallucinations, OCD, PTSD, Other (See Below) Endocrine/Metabolic History: Reports: Diabetes, Type II Hematologic History: Reports: None Immunologic History: Reports: None Other Immunologic History: MRSA Oncologic (Cancer) History: Reports: None Dermatologic History: Reports: None Other Dermatologic History: 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 - Infectious Disease History Infectious Disease History: Reports: MRSA - Past Surgical History Head Surgeries/Procedures: Reports: None HEENT Surgical History: Reports: Adenoidectomy, Myringotomy w Tube(s), Tonsillectomy Respiratory Surgical History: Reports: None GI Surgical History: Reports: Appendectomy, Cholecystectomy Female Surgical History: Reports: Section, D&C, Hysterectomy, Oophorectomy, Tubal Ligation Social & Family History - Family History Family Medical History: Noncontributory - Tobacco Use Smoking Status *Q: Current Every Day Smoker Years of Tobacco use: 25 Packs/Tins Daily: 0.5 - Caffeine Use Caffeine Use: Reports: Coffee - Recreational Drug Use Recreational Drug Use: No ED ROS GENERAL - Review of Systems Review Of Systems: Comprehensive ROS is negative, except as noted in HPI. ED EXAM, GENERAL - Physical Exam Exam: See Below (See dictation) Course - Vital Signs Last Recorded V/S: Last Vital Signs Temp 98.3 F 06/03/19 11:07 Pulse 99 06/03/19 11:07 Resp 20 06/03/19 11:07 BP 122/78 06/03/19 11:07 Pulse Ox 96 06/03/19 11:07 Departure - Departure Time of Disposition: 12:03 Disposition: Home, Self-Care 01 Clinical Impression: Right-sided chest wall pain - Discharge Information Prescriptions: Cyclobenzaprine [Flexeril] 10 mg PO TID PRN #21 tab PRN Reason: Muscle Spasm Instructions: Muscle Strain, [id number] Referrals: oJse Cartagena MD [Primary Care Provider] - Forms: ED Department Discharge Additional Instructions: The following information is given to patients seen in the emergency department who are being discharged to home. This information is to outline your options for follow-up care. We provide all patients seen in our emergency department with a follow-up referral. The need for follow-up, as well as the timing and circumstances, are variable depending upon the specifics of your emergency department visit. If you don't have a primary care physician on staff, we will provide you with a referral. We always advise you to contact your personal physician following an emergency department visit to inform them of the circumstance of the visit and for follow-up with them and/or the need for any referrals to a consulting specialist. The emergency department will also refer you to a specialist when appropriate. This referral assures that you have the opportunity for follow-up care with a specialist. All of these measure are taken in an effort to provide you with optimal care, which includes your follow-up. Under all circumstances we always encourage you to contact your private physician who remains a resource for coordinating your care. When calling for follow-up care, please make the office aware that this follow-up is from your recent emergency room visit. If for any reason you are refused follow-up, please contact the [facility] Emergency Department at and asked to speak to the emergency department charge nurse. [facility] [address] [place] [id number] [facility] [address] [place] [id number] 1. Limit your immobility to prevent muscle stiffness. Get up to ambulate/move around/gentle stretching multiple times throughout the day. May alternate heat and ice to the painful areas 2. Tylenol and Ibuprofen as needed for back pain. Otherwise take the prescribed Flexeril as directed. Flexeril as a muscle relaxant, this medication may cause drowsiness a do not take it will driving her needing to be functioning outside of the house. 3. Please follow-up with your primary care provider as we discussed. Return to the ED as needed and as discussed. Sepsis Event Note - Evaluation Sepsis Screening Result: No Definite Risk - Focused Exam Vital Signs: Vital Signs Temp Pulse Resp BP Pulse Ox 06/03/19 11:07 98.3 F 99 20 122/78 96 Date Exam was Performed: 06/03/19 Time Exam was Performed: 12:07
--- NOTE | 2019-06-03 11:57 | CR ---
Chest and right ribs: Frontal view of the chest was obtained as well as 4 views of the right ribs. Comparison: No previous chest rib exam is available. Heart size and mediastinum are normal. No acute parenchymal change is seen. Surgical clips are noted from prior cholecystectomy. No discrete fracture or other right-sided rib abnormality is appreciated. Impression: 1. Nothing acute seen on frontal chest x-ray. 2. No discrete right-sided rib abnormality is appreciated. Diagnostic code #1 This report was dictated in [place] Standard Time
== END 2019-06-03 12:14 | disposition home or self-care (01) ==
LOC: MW.ED 10:50
DX: R07.89 Other chest pain (principal); K21.9 Gastro-esophageal reflux disease without esophagitis; J45.909 Unspecified asthma, uncomplicated; F41.9 Anxiety disorder, unspecified; F32.9 Major depressive disorder, single episode, unspecified; E11.9 Type 2 diabetes mellitus without complications; F17.210 Nicotine dependence, cigarettes, uncomplicated; Z79.899 Other long term (current) drug therapy; Z79.4 Long term (current) use of insulin; Z88.5 Allergy status to narcotic agent; Z88.8 Allergy status to other drugs, medicaments and biological substances; Z88.0 Allergy status to penicillin; Z91.040 Latex allergy status
CPT/HCPCS: 71101-26-RT; 71101-RT; 99283; 99283-25

== ENCOUNTER 2019-10-21 06:02 | Emergency (ER) | payer MEDICARE, MEDICAID ==
[2019-10-21] MEDS ORDERED: Dexamethasone 10 MG/ML SDV IM ONE (06:33)
--- NOTE | 2019-10-21 06:33 | EDM.PDOC ---
ED HPI GENERAL MEDICAL PROBLEM - General Chief Complaint: Upper Extremity Injury/Pain Stated Complaint: LEFT SHOULDER AND NECK PAIN Time Seen by Provider: 10/21/19 06:21 Source of Information: Reports: Patient History Limitations: Reports: No Limitations - History of Present Illness INITIAL COMMENTS - FREE TEXT/NARRATIVE: 44-year-old female with history of diabetes, degenerative joint disease, cervical stenosis presents with atraumatic left shoulder pain for 1 week. Pain is constant, exacerbated by range of motion, rated at 9/10. She has been taking ibuprofen 800 mg twice daily for 1 year. She denies any fever, neck pain or stiffness, photophobia, light sensitivity, chest pain, shortness of breath, abdominal pain. ROS: A 10-point review of systems, other than pertinent positives and negatives as stated per HPI, is otherwise negative PHYSICAL EXAM General: AOx4, GCS = 15, smiling, joking in no distress HEENT: dry mucous membrane Neck: supple, no meningismus, no Kernig or Brudzinski, left trapezius ttp/spasm Cardiac: S1S2 RRR Respiratory: CTAB, no crackles or rales, no wheezing Abdomen: Soft, nontender, no rebound or guarding, nondistended, no pulsatile mass. Back: nontender Musculoskeletal: NVI distally, no deformity Neuro: No focal deficits, CN 2 - 12 WNL. Left Shoulder Pain Score (Numeric/FACES): 9 - Related Data Allergies Allergy/AdvReac Type Severity Reaction Status Date / Time codeine Allergy Anaphylactic Verified 10/21/19 06:27 Shock doxycycline Allergy Rash Verified 10/21/19 06:27 ketorolac tromethamine Allergy Hives Verified 10/21/19 06:27 [From Toradol] latex Allergy Anaphylactic Verified 10/21/19 06:27 Shock naproxen Allergy Airway Verified 10/21/19 06:27 Tightness Penicillins Allergy Anaphylactic Verified 10/21/19 06:27 Shock tramadol Allergy Hives Verified 10/21/19 06:27 trazodone Allergy Hives Verified 10/21/19 06:27 valproic acid [From Depakene] Allergy Hives Verified 10/21/19 06:27 Home Meds: Home Meds Omeprazole 40 mg PO DAILY 10/26/16 [History] Albuterol Sulfate [Proair Hfa] 1 puff INH ASDIRECTED PRN 11/04/16 [History] Insulin Aspart [NovoLOG] 20 units SQ ASDIRECTED 11/04/16 [History] Insulin Detemir [Levemir] 60 unit SUBCUT DAILY 10/01/17 [History] Lisinopril 1 tab PO DAILY 10/01/17 [History] Vilazodone HCl [Viibryd] 40 mg PO DAILY 10/01/17 [History] Zolpidem Tartrate [Ambien] 1 tab PO BEDTIME 10/01/17 [History] atorvaSTATin [Lipitor] 1 tab PO BEDTIME 10/01/17 [History] diphenhydrAMINE HCL [Benadryl] 25 mg PO ASDIRECTED 10/01/17 [History] Cyclobenzaprine [Flexeril] 10 mg PO BID #10 tab 10/21/19 [Rx] Varenicline Tartrate [Chantix] 1 mg PO BID 10/21/19 [History] Past Medical History HEENT History: Reports: Other (See Below) Other HEENT History: previous migraines Cardiovascular History: Reports: None Respiratory History: Reports: Asthma Other Respiratory History: was tested and told she had sleep apnea, has never had a CPAP Gastrointestinal History: Reports: GERD Other Gastrointestinal History: E. Coli in Liver Genitourinary History: Reports: Renal Calculus Other Genitourinary History: able to pass stones REIMBURSEMENT DIRECTOR History: Reports: Ectopic , Other REIMBURSEMENT DIRECTOR History: Molar and tubal , oophorectomy, c- sections x 2, hysterectomy Musculoskeletal History: Reports: Back Pain, Chronic, Neck Pain, Chronic, Other (See Below) Other Musculoskeletal History: degenerative spine disease Neurological History: Reports: Migraines Other Neuro History: has ruptured cervical discs Psychiatric History: Reports: Anxiety, Depression, Hallucinations, OCD, PTSD, Other (See Below) Endocrine/Metabolic History: Reports: Diabetes, Type II Hematologic History: Reports: None Immunologic History: Reports: None Other Immunologic History: MRSA Oncologic (Cancer) History: Reports: None Dermatologic History: Reports: None Other Dermatologic History: 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 - Infectious Disease History Infectious Disease History: Reports: MRSA - Past Surgical History Head Surgeries/Procedures: Reports: None HEENT Surgical History: Reports: Adenoidectomy, Myringotomy w Tube(s), Tonsillectomy Respiratory Surgical History: Reports: None GI Surgical History: Reports: Appendectomy, Cholecystectomy Female Surgical History: Reports: Section, D&C, Hysterectomy, Oophorectomy, Tubal Ligation Social & Family History - Family History Family Medical History: Noncontributory - Caffeine Use Caffeine Use: Reports: Coffee Review of Systems - Review of Systems Review Of Systems: Comprehensive ROS is negative, except as noted in HPI. ED EXAM, GENERAL - Physical Exam Exam: See Below (seee dictation) Course - Vital Signs Last Recorded V/S: Last Vital Signs Temp 96.9 F 10/21/19 06:22 Pulse 79 10/21/19 06:22 Resp 18 10/21/19 06:22 BP 124/80 10/21/19 06:22 Pulse Ox 98 10/21/19 06:22 - Re-Assessments/Exams Free Text/Narrative Re-Assessment/Exam: 10/21/19 06:29 She is stable for discharge. I performed a repeat examination and the patient has not demonstrated any new abnormal findings. Patient exhibits normal vital signs and has exhibited a normal gait. I advised the patient to return to the ER for reevaluation if symptoms worsened, and to follow up with their PCP within 2-3 days. MEDICAL DECISION MAKING: I reviewed the patients past medical records, lab and radiographic findings. I discussed the case with the patient. My differential diagnosis included: neck strain. Pain is reproducible with palpation to the left trapezius, pain is worse with shoulder abduction. I do not suspect atypical chest pain. She has no complaints of chest pain, shortness of breath, palpitation, nausea, vomiting, weakness. Departure - Departure Time of Disposition: 06:32 Disposition: Home, Self-Care 01 Condition: Good Clinical Impression: Neck muscle strain, Strain of neck muscle - Discharge Information *PRESCRIPTION DRUG MONITORING PROGRAM REVIEWED*: Not Applicable *COPY OF PRESCRIPTION DRUG MONITORING REPORT IN PATIENT MARIA VICTORIA: Not Applicable Prescriptions: Cyclobenzaprine [Flexeril] 10 mg PO BID #10 tab Instructions: How to Use Cold Therapy, [id number] Referrals: Jose Cartagena MD [Primary Care Provider] - 1 Week Additional Instructions: The following information is given to patients seen in the emergency department who are being discharged to home. This information is to outline your options for follow-up care. We provide all patients seen in our emergency department with a follow-up referral. The need for follow-up, as well as the timing and circumstances, are variable depending upon the specifics of your emergency department visit. If you don't have a primary care physician on staff, we will provide you with a referral. We always advise you to contact your personal physician following an emergency department visit to inform them of the circumstance of the visit and for follow-up with them and/or the need for any referrals to a consulting specialist. The emergency department will also refer you to a specialist when appropriate. This referral assures that you have the opportunity for follow-up care with a specialist. All of these measure are taken in an effort to provide you with optimal care, which includes your follow-up. Under all circumstances we always encourage you to contact your private physician who remains a resource for coordinating your care. When calling for follow-up care, please make the office aware that this follow-up is from your recent emergency room visit. If for any reason you are refused follow-up, please contact the [facility] Emergency Department at and asked to speak to the emergency department charge nurse. If you do not have a primary care doctor, please follow up with the clinics below within 3-5 days. [facility] [address] [place] [id number] [address] Sepsis Event Note (ED) - Evaluation Sepsis Screening Result: No Definite Risk - Focused Exam Vital Signs: Vital Signs Temp Pulse Resp BP Pulse Ox 10/21/19 06:22 96.9 F 79 18 124/80 98
[2019-10-21 20:05] VITALS: BP 118/78; PULSE 69
== END 2019-10-21 07:14 | disposition home or self-care (01) ==
LOC: MW.ED 06:02
DX: S16.1XXA Strain of muscle, fascia and tendon at neck level, initial encounter (principal); E11.9 Type 2 diabetes mellitus without complications; J45.909 Unspecified asthma, uncomplicated; K21.9 Gastro-esophageal reflux disease without esophagitis; F41.9 Anxiety disorder, unspecified; F32.9 Major depressive disorder, single episode, unspecified; Z88.5 Allergy status to narcotic agent; Z88.8 Allergy status to other drugs, medicaments and biological substances; Z88.0 Allergy status to penicillin; Z88.6 Allergy status to analgesic agent; Z79.899 Other long term (current) drug therapy; Z79.4 Long term (current) use of insulin; X58.XXXA Exposure to other specified factors, initial encounter
CPT/HCPCS: 96372; 99283; J1100

== ENCOUNTER 2019-10-25 17:31 | Observation (INO) | payer MEDICARE, MEDICAID, OTHER ==
[2019-10-25] MEDS ORDERED: Aspirin 81 MG Tab.Chew PO ONE (17:37)
[2019-10-25] MEDS ORDERED: Sodium Chloride 0.9% 10 ML Syringe FLUSH PRN (17:37)
[2019-10-25] MEDS ORDERED: Sodium Chloride 0.9% 2.5 ML Syringe FLUSH PRN (17:37)
--- NOTE | 2019-10-25 17:48 | EDM.PDOC ---
ED HPI GENERAL MEDICAL PROBLEM - General Stated Complaint: CHEST PAIN, NECK SHOULDER PAIN Time Seen by Provider: 10/25/19 17:34 Source of Information: Reports: Patient - History of Present Illness INITIAL COMMENTS - FREE TEXT/NARRATIVE: History of present illness: 44-year-old female presenting with left-sided chest pain ongoing for the last week. Pain initially started on the right side, primarily in the shoulder and she was seen in the emergency department, referred for orthopedic follow-up but by the time she saw the orthopedic surgeon, the pain had moved to the left side. Now located more in the chest and radiates to the left shoulder and left neck. Also reports some dyspnea associated with it and has been having difficulty sleeping while lying flat and has to sit up when she is sleeping in order to be able to breathe. She does report some cramping of both lower extremities as well, feels like she has a charley horse when she gets up from bed. Review of systems: As per history of present illness and below otherwise all systems reviewed and negative. Past medical history: As per history of present illness and as reviewed below otherwise noncontributory. Diabetes, hypertension, hypercholesterolemia, sleep apnea Surgical history: As per history of present illness and as reviewed below otherwise noncontributory. Social history: No reported history of drug or alcohol abuse. Family history: As per history of present illness and as reviewed below otherwise noncontributory. Physical exam: GEN: no acute distress, well appearing HEENT: Atraumatic, normocephalic, mucous membranes moist, Neck: supple, nontender, trachea midline. Lungs: Dyspneic, left anterior chest wall tender to palpation. Heart: Regular rate, mildly tachycardic Abdomen: Soft, nondistended, nontender. Back: nontender Extremities: Atraumatic. Neurovascularly intact. Neuro: Awake, alert, oriented. Neuro Exam nonfocal. Psych: Appears anxious Skin: warm, dry, no lesions Diagnostics: Labs, EKG, chest x-ray, CT angios chest Therapeutics: Aspirin MDM: Impression: [] Plan: [] Definitive disposition and diagnosis as appropriate pending reevaluation and review of above. left arm Pain Score (Numeric/FACES): 3 Left Chest Pain Score (Numeric/FACES): 8 Left Shoulder Pain Score (Numeric/FACES): 8 - Related Data Allergies Allergy/AdvReac Type Severity Reaction Status Date / Time codeine Allergy Anaphylactic Verified 10/25/19 23:01 Shock doxycycline Allergy Rash Verified 10/25/19 23:01 ketorolac tromethamine Allergy Hives Verified 10/25/19 23:01 [From Toradol] latex Allergy Anaphylactic Verified 10/25/19 23:01 Shock naproxen Allergy Airway Verified 10/25/19 23:01 Tightness Penicillins Allergy Anaphylactic Verified 10/25/19 23:01 Shock tramadol Allergy Hives Verified 10/25/19 23:01 trazodone Allergy Hives Verified 10/25/19 23:01 valproic acid [From Depakene] Allergy Hives Verified 10/25/19 23:01 Home Meds: Home Meds Omeprazole 20 mg PO DAILY 10/26/16 [History] Albuterol Sulfate [Proair Hfa] 1 puff INH ASDIRECTED PRN 11/04/16 [History] Insulin Aspart [NovoLOG] 5 units SQ ASDIRECTED 11/04/16 [History] Insulin Detemir [Levemir] 60 unit SUBCUT BID 10/01/17 [History] Lisinopril 10 tab PO BEDTIME 10/01/17 [History] Vilazodone HCl [Viibryd] 40 mg PO BEDTIME 10/01/17 [History] atorvaSTATin [Lipitor] 10 tab PO BEDTIME 10/01/17 [History] diphenhydrAMINE HCL [Benadryl] 25 mg PO ASDIRECTED 10/01/17 [History] Varenicline Tartrate [Chantix] 1 mg PO BID 10/21/19 [History] clonazePAM [Klonopin] 1 mg PO BEDTIME 10/21/19 [History] Ozempic 1 mg INJECT WEEKLY 10/25/19 [History] Past Medical History HEENT History: Reports: Other (See Below) Other HEENT History: previous migraines Cardiovascular History: Reports: None Respiratory History: Reports: Asthma Other Respiratory History: was tested and told she had sleep apnea, has never had a CPAP Gastrointestinal History: Reports: GERD Other Gastrointestinal History: E. Coli in Liver Genitourinary History: Reports: Renal Calculus Other Genitourinary History: able to pass stones RELAY CHECKER History: Reports: Ectopic , Other RELAY CHECKER History: Molar and tubal , oophorectomy, c- sections x 2, hysterectomy Musculoskeletal History: Reports: Back Pain, Chronic, Neck Pain, Chronic, Other (See Below) Other Musculoskeletal History: degenerative spine disease Neurological History: Reports: Migraines Other Neuro History: has ruptured cervical discs Psychiatric History: Reports: Anxiety, Depression, Hallucinations, OCD, PTSD, Other (See Below) Endocrine/Metabolic History: Reports: Diabetes, Type II Hematologic History: Reports: None Immunologic History: Reports: None Other Immunologic History: MRSA Oncologic (Cancer) History: Reports: None Dermatologic History: Reports: None Other Dermatologic History: 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 - Infectious Disease History Infectious Disease History: Reports: MRSA - Past Surgical History Head Surgeries/Procedures: Reports: None HEENT Surgical History: Reports: Adenoidectomy, Myringotomy w Tube(s), Tonsillectomy Respiratory Surgical History: Reports: None GI Surgical History: Reports: Appendectomy, Cholecystectomy Female Surgical History: Reports: Section, D&C, Hysterectomy, Oophorectomy, Tubal Ligation Social & Family History - Family History Family Medical History: Noncontributory - Caffeine Use Caffeine Use: Reports: Coffee ED ROS GENERAL - Review of Systems Review Of Systems: See Below (See HPI) ED EXAM, GENERAL - Physical Exam Exam: See Below (See HPI) EKG INTERPRETATION EKG Interpretation Comments: EKG performed at 5:37 PM, sinus, rate 86, left atrial enlargement, borderline low voltage, no acute ischemia, no STEMI. Interpreted by me. Course - Vital Signs Text/Narrative:: Patient with left-sided chest pain and dyspnea, mildly tachycardic, multiple cardiac risk factors, heart score 3. Low risk for PE/DVT, however mildly tachycardic and with dyspnea and multiple comorbidities. Will check CT angio chest. Aspirin given on arrival here. Troponin not elevated. EKG with no acute ischemia, BNP not elevated. Chest x- ray unremarkable. CT angios chest pending at time of signout. Signed out to Dr. Baker at 19:30, pending CT scan with planned admission. Patient was also updated on this plan and she agrees. Last Recorded V/S: Last Vital Signs Temp 96.8 F L 10/26/19 04:17 Pulse 81 10/26/19 04:17 Resp 16 10/26/19 04:17 BP 115/71 10/26/19 04:17 Pulse Ox 91 L 10/26/19 04:17 - Orders/Labs/Meds Orders: Active Orders 24 hr Category Date Time Status EKG Documentation Completion [RC] STAT Care 10/25/19 17:38 Active Sodium Chloride 0.9% [Saline Flush] Med 10/25/19 17:37 Active 10 ml FLUSH ASDIRECTED PRN Sodium Chloride 0.9% [Saline Flush] Med 10/25/19 17:37 Active 2.5 ml FLUSH ASDIRECTED PRN Saline Lock Insert [OM.PC] Stat Oth 10/25/19 17:37 Ordered Medication Orders Acetaminophen (Tylenol) 650 mg PO Q6H PRN PRN Reason: Pain Last Admin: 10/25/19 23:32 Dose: 650 mg Documented by: CHERYL Atorvastatin Calcium (Lipitor) 10 mg PO BEDTIME [facility] Insulin Aspart (Novolog) 0 unit SUBCUT TIDAC [facility]; Protocol Last Admin: 10/26/19 08:00 Dose: 1 unit Documented by: VIDA Insulin Detemir (Levemir) 60 unit SUBCUT BID [facility] Last Admin: 10/26/19 08:05 Dose: 60 units Documented by: Admin: 10/25/19 23:55 Dose: 60 units Documented by: CHERYL Lisinopril (Prinivil) 10 mg PO BEDTIME [facility] Last Admin: 10/25/19 23:34 Dose: Not Given Documented by: CHERYL Morphine Sulfate (Morphine) 2 mg IVPUSH Q3H PRN PRN Reason: Pain Last Admin: 10/26/19 05:49 Dose: 2 mg Documented by: Admin: 10/26/19 02:14 Dose: 2 mg Documented by: Admin: 10/25/19 22:33 Dose: 2 mg Documented by: CHERYL Vilazodone Hcl [ (Viibryd] 40 Mg) 1 each PO BEDTIME MARYANA Sodium Chloride (Saline Flush) 10 ml FLUSH ASDIRECTED PRN PRN Reason: Keep Vein Open Last Admin: 10/25/19 17:46 Dose: 10 ml Documented by: YOLY Sodium Chloride (Saline Flush) 2.5 ml FLUSH ASDIRECTED PRN PRN Reason: Keep Vein Open Last Admin: 10/25/19 17:46 Dose: 2.5 ml Documented by: YOLY Labs: Laboratory Tests 10/25/19 10/25/19 10/25/19 Range/Units 17:40 17:40 17:40 WBC 7.05 (4.0-11.0) K/uL RBC 4.19 L (4.30-5.90) M/uL Hgb 13.0 (12.0-16.0) g/dL Hct 38.1 (36.0-46.0) % MCV 90.9 (80.0-98.0) fL MCH 31.0 (27.0-32.0) pg MCHC 34.1 (31.0-37.0) g/dL RDW Std Deviation 43.7 (28.0-62.0) fl RDW Coeff of Lora 13 (11.0-15.0) % Plt Count 291 (150-400) K/uL MPV 9.40 (7.40-12.00) fL Neut % (Auto) 32.7 L (48.0-80.0) % Lymph % (Auto) 56.6 H (16.0-40.0) % [place] % (Auto) 5.7 (0.0-15.0) % Eos % (Auto) 4.4 (0.0-7.0) % Baso % (Auto) 0.6 (0.0-1.5) % Neut # (Auto) 2.3 (1.4-5.7) K/uL Lymph # (Auto) 4.0 H (0.6-2.4) K/uL [place] # (Auto) 0.4 (0.0-0.8) K/uL Eos # (Auto) 0.3 (0.0-0.7) K/uL Baso # (Auto) 0.0 (0.0-0.1) K/uL Nucleated RBC % 0.0 /100WBC Nucleated RBCs # 0 K/uL Sodium 135 L (136-145) mmol/L Potassium 4.7 (3.5-5.1) mmol/L Chloride 100 (98-107) mmol/L Carbon Dioxide 25.4 (21.0-32.0) mmol/L BUN 8 (7.0-18.0) mg/dL Creatinine 0.8 (0.6-1.0) mg/dL Est Cr Clr Drug Dosing 74.23 mL/min Estimated GFR (MDRD) > 60.0 ml/min Glucose 159 H (74-106) mg/dL Calcium 8.9 (8.5-10.1) mg/dL Total Bilirubin 0.9 (0.2-1.0) mg/dL AST 260 H (15-37) IU/L ALT 318 H (14-63) IU/L Alkaline Phosphatase 194 H (46-116) U/L Troponin I < 0.050 (0.000-0.056) ng/mL B-Natriuretic Peptide < 2 (<100) PG/ML Total Protein 7.5 (6.4-8.2) g/dL Albumin 3.8 (3.4-5.0) g/dL Globulin 3.7 (2.6-4.0) g/dL Albumin/Globulin Ratio 1.0 (0.9-1.6) Lipase 71 L (73-393) U/L TSH 3rd Generation 3.04 (0.36-3.74) uIU/mL COVID-19 (SHANON) (NEGATIVE) 10/25/19 Range/Units 19:05 WBC (4.0-11.0) K/uL RBC (4.30-5.90) M/uL Hgb (12.0-16.0) g/dL Hct (36.0-46.0) % MCV (80.0-98.0) fL MCH (27.0-32.0) pg MCHC (31.0-37.0) g/dL RDW Std Deviation (28.0-62.0) fl RDW Coeff of Lora (11.0-15.0) % Plt Count (150-400) K/uL MPV (7.40-12.00) fL Neut % (Auto) (48.0-80.0) % Lymph % (Auto) (16.0-40.0) % [place] % (Auto) (0.0-15.0) % Eos % (Auto) (0.0-7.0) % Baso % (Auto) (0.0-1.5) % Neut # (Auto) (1.4-5.7) K/uL Lymph # (Auto) (0.6-2.4) K/uL Shaw[place] # (Auto) (0.0-0.8) K/uL Eos # (Auto) (0.0-0.7) K/uL Baso # (Auto) (0.0-0.1) K/uL Nucleated RBC % /100WBC Nucleated RBCs # K/uL Sodium (136-145) mmol/L Potassium (3.5-5.1) mmol/L Chloride (98-107) mmol/L Carbon Dioxide (21.0-32.0) mmol/L BUN (7.0-18.0) mg/dL Creatinine (0.6-1.0) mg/dL Est Cr Clr Drug Dosing mL/min Estimated GFR (MDRD) ml/min Glucose (74-106) mg/dL Calcium (8.5-10.1) mg/dL Total Bilirubin (0.2-1.0) mg/dL AST (15-37) IU/L ALT (14-63) IU/L Alkaline Phosphatase (46-116) U/L Troponin I (0.000-0.056) ng/mL B-Natriuretic Peptide (<100) PG/ML Total Protein (6.4-8.2) g/dL Albumin (3.4-5.0) g/dL Globulin (2.6-4.0) g/dL Albumin/Globulin Ratio (0.9-1.6) Lipase (73-393) U/L TSH 3rd Generation (0.36-3.74) uIU/mL COVID-19 (SHANON) NEGATIVE (NEGATIVE) Meds: Medications Generic Name Dose Route Start Last Admin Trade Name Freq PRN Reason Stop Dose Admin Acetaminophen 650 mg 10/25/19 22:04 10/25/19 23:32 Tylenol PO 650 mg Q6H PRN Administration Pain Atorvastatin Calcium 10 mg 10/26/19 21:00 Lipitor PO BEDTIME [facility] Insulin Aspart 0 unit 10/26/19 07:30 10/26/19 08:00 Novolog SUBCUT 1 unit TIDAC [facility] Administration Protocol Insulin Detemir 60 unit 10/25/19 23:30 10/26/19 08:05 Levemir SUBCUT 60 units BID [facility] Administration Lisinopril 10 mg 10/25/19 21:00 10/25/19 23:34 Prinivil PO Not Given BEDTIME [facility] Morphine Sulfate 2 mg 10/25/19 22:02 10/26/19 05:49 Morphine IVPUSH 2 mg Q3H PRN Administration Pain Vilazodone Hcl [ 1 each 10/25/19 21:00 Viibryd] 40 Mg PO BEDTIME MARYANA Sodium Chloride 10 ml 10/25/19 17:37 10/25/19 17:46 Saline Flush FLUSH 10 ml ASDIRECTED PRN Administration Keep Vein Open Sodium Chloride 2.5 ml 10/25/19 17:37 10/25/19 17:46 Saline Flush FLUSH 2.5 ml ASDIRECTED PRN Administration Keep Vein Open Discontinued Medications Generic Name Dose Route Start Last Admin Trade Name Freq PRN Reason Stop Dose Admin Aspirin 324 mg 10/25/19 17:37 10/25/19 17:46 Aspirin PO 10/25/19 17:38 324 mg ONETIME ONE Administration Iopamidol 75 ml 10/25/19 19:11 10/25/19 19:12 Isovue Multipack-370 (76%) IVPUSH 10/25/19 19:12 75 ml ONETIME STA Administration Morphine Sulfate 4 mg 10/25/19 19:28 10/25/19 20:14 Morphine IVPUSH 10/25/19 19:29 4 mg ONETIME ONE Administration - Re-Assessments/Exams Free Text/Narrative Re-Assessment/Exam: 10/25/19 19:29 I reevaluated the patient. She is reporting that she is still having left-sided chest pain and shoulder pain. CT scan is pending but not resulted. Discussed with the patient my recommendation for admission to the hospital given her underlying multiple cardiac risk factors, she does agree with that plan as she is still very uncomfortable and having some mild difficulty breathing, especially when laying flat. Departure - Departure Time of Disposition: 19:30 Disposition: Refer to Observation Clinical Impression: Chest pain, Chest pain, moderate coronary artery risk - My Orders Last 24 Hours: My Active Orders 10/25/19 17:37 Sodium Chloride 0.9% [Saline Flush] 10 ml FLUSH ASDIRECTED PRN Sodium Chloride 0.9% [Saline Flush] 2.5 ml FLUSH ASDIRECTED PRN Saline Lock Insert [OM.PC] Stat 10/25/19 17:38 EKG Documentation Completion [RC] STAT - Assessment/Plan Last 24 Hours: My Active Orders 10/25/19 17:37 Sodium Chloride 0.9% [Saline Flush] 10 ml FLUSH ASDIRECTED PRN Sodium Chloride 0.9% [Saline Flush] 2.5 ml FLUSH ASDIRECTED PRN Saline Lock Insert [OM.PC] Stat 10/25/19 17:38 EKG Documentation Completion [RC] STAT
[2019-10-25 18:17] LABS: BLOOD UREA NITROGEN,BUN 8 mg/dL (7.0-18.0); CARBON DIOXIDE,CO2 25.4 mmol/L (21.0-32.0); CHLORIDE,CL 100 mmol/L (98-107); GLUCOSE RANDOM 159 mg/dL (74-106); LIPASE 71 U/L (73-393); POTASSIUM,K 4.7 mmol/L (3.5-5.1); SODIUM,NA 135 mmol/L (136-145)
--- NOTE | 2019-10-25 18:34 | CR ---
Chest: Portable view of the chest was obtained. Comparison: Prior chest x-ray of 02/22/13. Slight atelectasis is noted within the left base. Lungs otherwise are clear. Heart size and mediastinum are normal. Bony structures are grossly intact. Impression: 1. Slight atelectasis. 2. Nothing acute is seen on portable chest x-ray. Diagnostic code #2 This report was dictated in MDT
[2019-10-25] MEDS ORDERED: Iopamidol 755 MG/ML 500 ML Multipack Bottle IVPUSH STA (19:11)
[2019-10-25] MEDS ORDERED: Morphine 4 MG/ML Syringe IVPUSH ONE (19:28)
--- NOTE | 2019-10-25 19:49 | CT ---
INDICATION: Shortness of breath. Shoulder and neck pain. CT CHEST WITH CONTRAST TECHNIQUE: Multidetector CT imaging was performed through the chest following intravenous contrast administration using 75 mL Isovue 370. Coronal and sagittal reconstructions were generated. COMPARISON: None. FINDINGS: Lungs and airways: Shallow inspiration with diffuse mild lung atelectasis. No confluent infiltrates, suspicious nodules, or masses. Central airways are patent. Pleura and pleural spaces: No pleural effusions or pneumothorax. Heart and mediastinum: Normal heart size. No significant pericardial effusion. No pathologically enlarged mediastinal lymph nodes. Vascular structures: No filling defects in the pulmonary arterial tree to suggest pulmonary emboli. Normal caliber aorta without evidence of dissection. Chest wall and axillae: No mass or axillary lymphadenopathy. Osseous structures: Normal for age. No acute fractures identified. Upper abdomen: Status post cholecystectomy. 3 centimeter hepatic cyst. IMPRESSION: 1. No pulmonary emboli or other acute intrathoracic abnormality identified. 2. Nonacute findings as detailed above. JOSE MAYORGA MD [facility] Dictated by Fabio Mayorga MD @ 10/25/2019 7:40:16 PM Dictated by: Fabio Mayorga MD @ 10/25/2019 19:48:46 (Electronically Signed)
[2019-10-25] MEDS ORDERED: Vilazodone Hcl [Viibryd] 40 MG PO SCH (21:00)
[2019-10-25] MEDS ORDERED: Lisinopril 10 MG Tab PO SCH (21:00)
[2019-10-25] MEDS ORDERED: Acetaminophen 325 MG Tab PO PRN (22:04)
[2019-10-25] MEDS: Morphine 2 MG/ML SYRINGE IVPUSH PRN (22:33)
--- NOTE | 2019-10-25 23:20 | PCM.HP.2 ---
H&P History of Present Illness - General Date of Service: 10/25/19 Admit Problem/Dx: Admission Diagnosis/Problem Admission Diagnosis/Problem Chest pain - History of Present Illness Initial Comments - Free Text/Narative: 44 yo female with pmh of asthma, DM who presents to the ED with complaint of three weeks of left shoulder pain. She describes her muscles get real tight and her shoulder gets locked. Movement of the shoulder causes the pain to get worse. She has been following orthopedics regarding her right shoulder pain, but the left shoulder pain is new. left arm Pain Score (Numeric/FACES): 7 Left Chest Pain Score (Numeric/FACES): 8 Left Shoulder Pain Score (Numeric/FACES): 8 - Related Data Allergies/Adverse Reactions: Allergies Allergy/AdvReac Type Severity Reaction Status Date / Time codeine Allergy Anaphylactic Verified 10/25/19 23:01 Shock doxycycline Allergy Rash Verified 10/25/19 23:01 ketorolac tromethamine Allergy Hives Verified 10/25/19 23:01 [From Toradol] latex Allergy Anaphylactic Verified 10/25/19 23:01 Shock naproxen Allergy Airway Verified 10/25/19 23:01 Tightness Penicillins Allergy Anaphylactic Verified 10/25/19 23:01 Shock tramadol Allergy Hives Verified 10/25/19 23:01 trazodone Allergy Hives Verified 10/25/19 23:01 valproic acid [From Depakene] Allergy Hives Verified 10/25/19 23:01 Home Medications: Home Meds Omeprazole 20 mg PO DAILY 10/26/16 [History] Albuterol Sulfate [Proair Hfa] 1 puff INH ASDIRECTED PRN 11/04/16 [History] Insulin Aspart [NovoLOG] 5 units SQ ASDIRECTED 11/04/16 [History] Insulin Detemir [Levemir] 60 unit SUBCUT BID 10/01/17 [History] Lisinopril 10 tab PO BEDTIME 10/01/17 [History] Vilazodone HCl [Viibryd] 40 mg PO BEDTIME 10/01/17 [History] atorvaSTATin [Lipitor] 10 tab PO BEDTIME 10/01/17 [History] diphenhydrAMINE HCL [Benadryl] 25 mg PO ASDIRECTED 10/01/17 [History] Varenicline Tartrate [Chantix] 1 mg PO BID 10/21/19 [History] clonazePAM [Klonopin] 1 mg PO BEDTIME 10/21/19 [History] Ozempic 1 mg INJECT WEEKLY 10/25/19 [History] Past Medical History HEENT History: Reports: Other (See Below) Other HEENT History: previous migraines Cardiovascular History: Reports: None Respiratory History: Reports: Asthma Other Respiratory History: was tested and told she had sleep apnea, has never had a CPAP Gastrointestinal History: Reports: GERD Other Gastrointestinal History: E. Coli in Liver Genitourinary History: Reports: Renal Calculus Other Genitourinary History: able to pass stones [employer] History: Reports: Ectopic , Other OB/BYN History: Molar and tubal , oophorectomy, c-sections x 2, hysterectomy Musculoskeletal History: Reports: Back Pain, Chronic, Neck Pain, Chronic, Other (See Below) Other Musculoskeletal History: degenerative spine disease Neurological History: Reports: Migraines Other Neuro History: has ruptured cervical discs Psychiatric History: Reports: Anxiety, Depression, Hallucinations, OCD, PTSD, Other (See Below) Endocrine/Metabolic History: Reports: Diabetes, Type II Hematologic History: Reports: None Immunologic History: Reports: None Other Immunologic History: MRSA Oncologic (Cancer) History: Reports: None Dermatologic History: Reports: None Other Dermatologic History: 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 - Infectious Disease History Infectious Disease History: Reports: MRSA Other Infectious Disease History: Ecoli - Past Surgical History Head Surgeries/Procedures: Reports: None HEENT Surgical History: Reports: Adenoidectomy, Myringotomy w Tube(s), Tonsillectomy Respiratory Surgical History: Reports: None GI Surgical History: Reports: Appendectomy, Cholecystectomy Female Surgical History: Reports: Section, D&C, Hysterectomy, Oophorectomy, Tubal Ligation Social & Family History - Family History Family Medical History: Noncontributory - Tobacco Use Smoking Status *Q: Current Every Day Smoker Years of Tobacco use: 28 Packs/Tins Daily: 5 - Caffeine Use Caffeine Use: Reports: Coffee, Soda - Recreational Drug Use Recreational Drug Use: No H&P Review of Systems - Review of Systems: Review Of Systems: Comprehensive ROS is negative, except as noted in HPI. Exam - Exam Exam: See Below - Vital Signs Vital Signs: Last Vital Signs Temp 36.8 C 10/25/19 21:35 Pulse 80 10/25/19 21:35 Resp 16 10/25/19 21:35 BP 135/86 10/25/19 21:35 Pulse Ox 95 10/25/19 21:35 Weight: 95.753 kg - Exam General: Alert, Oriented HEENT: Mucosa Moist & [place] Neck: Supple Lungs: Clear to Auscultation, Normal Respiratory Effort Cardiovascular: Regular Rate, Regular Rhythm GI/Abdominal Exam: Normal Bowel Sounds, Soft, Non-Tender Extremities: Normal Range of Motion, Non-Tender, No Pedal Edema Skin: Warm, Dry, Intact Neurological: No: Focal Deficit - Patient Data Lab Results Last 24 hrs: Laboratory Results - last 24 hr 10/25/19 10/25/19 10/25/19 Range/Units 17:40 17:40 17:40 WBC 7.05 (4.0-11.0) K/uL RBC 4.19 L (4.30-5.90) M/uL Hgb 13.0 (12.0-16.0) g/dL Hct 38.1 (36.0-46.0) % MCV 90.9 (80.0-98.0) fL MCH 31.0 (27.0-32.0) pg MCHC 34.1 (31.0-37.0) g/dL RDW Std Deviation 43.7 (28.0-62.0) fl RDW Coeff of Lora 13 (11.0-15.0) % Plt Count 291 (150-400) K/uL MPV 9.40 (7.40-12.00) fL Neut % (Auto) 32.7 L (48.0-80.0) % Lymph % (Auto) 56.6 H (16.0-40.0) % Cassia % (Auto) 5.7 (0.0-15.0) % Eos % (Auto) 4.4 (0.0-7.0) % Baso % (Auto) 0.6 (0.0-1.5) % Neut # (Auto) 2.3 (1.4-5.7) K/uL Lymph # (Auto) 4.0 H (0.6-2.4) K/uL Cassia # (Auto) 0.4 (0.0-0.8) K/uL Eos # (Auto) 0.3 (0.0-0.7) K/uL Baso # (Auto) 0.0 (0.0-0.1) K/uL Nucleated RBC % 0.0 /100WBC Nucleated RBCs # 0 K/uL Sodium 135 L (136-145) mmol/L Potassium 4.7 (3.5-5.1) mmol/L Chloride 100 (98-107) mmol/L Carbon Dioxide 25.4 (21.0-32.0) mmol/L BUN 8 (7.0-18.0) mg/dL Creatinine 0.8 (0.6-1.0) mg/dL Est Cr Clr Drug Dosing 74.23 mL/min Estimated GFR (MDRD) > 60.0 ml/min Glucose 159 H (74-106) mg/dL Calcium 8.9 (8.5-10.1) mg/dL Total Bilirubin 0.9 (0.2-1.0) mg/dL AST 260 H (15-37) IU/L ALT 318 H (14-63) IU/L Alkaline Phosphatase 194 H (46-116) U/L Troponin I < 0.050 (0.000-0.056) ng/mL B-Natriuretic Peptide < 2 (<100) PG/ML Total Protein 7.5 (6.4-8.2) g/dL Albumin 3.8 (3.4-5.0) g/dL Globulin 3.7 (2.6-4.0) g/dL Albumin/Globulin Ratio 1.0 (0.9-1.6) Lipase 71 L (73-393) U/L TSH 3rd Generation 3.04 (0.36-3.74) uIU/mL COVID-19 ([facility]) (NEGATIVE) 10/25/19 Range/Units 19:05 WBC (4.0-11.0) K/uL RBC (4.30-5.90) M/uL Hgb (12.0-16.0) g/dL Hct (36.0-46.0) % MCV (80.0-98.0) fL MCH (27.0-32.0) pg MCHC (31.0-37.0) g/dL RDW Std Deviation (28.0-62.0) fl RDW Coeff of Lora (11.0-15.0) % Plt Count (150-400) K/uL MPV (7.40-12.00) fL Neut % (Auto) (48.0-80.0) % Lymph % (Auto) (16.0-40.0) % Cassia % (Auto) (0.0-15.0) % Eos % (Auto) (0.0-7.0) % Baso % (Auto) (0.0-1.5) % Neut # (Auto) (1.4-5.7) K/uL Lymph # (Auto) (0.6-2.4) K/uL Cassia # (Auto) (0.0-0.8) K/uL Eos # (Auto) (0.0-0.7) K/uL Baso # (Auto) (0.0-0.1) K/uL Nucleated RBC % /100WBC Nucleated RBCs # K/uL Sodium (136-145) mmol/L Potassium (3.5-5.1) mmol/L Chloride (98-107) mmol/L Carbon Dioxide (21.0-32.0) mmol/L BUN (7.0-18.0) mg/dL Creatinine (0.6-1.0) mg/dL Est Cr Clr Drug Dosing mL/min Estimated GFR (MDRD) ml/min Glucose (74-106) mg/dL Calcium (8.5-10.1) mg/dL Total Bilirubin (0.2-1.0) mg/dL AST (15-37) IU/L ALT (14-63) IU/L Alkaline Phosphatase (46-116) U/L Troponin I (0.000-0.056) ng/mL B-Natriuretic Peptide (<100) PG/ML Total Protein (6.4-8.2) g/dL Albumin (3.4-5.0) g/dL Globulin (2.6-4.0) g/dL Albumin/Globulin Ratio (0.9-1.6) Lipase (73-393) U/L TSH 3rd Generation (0.36-3.74) uIU/mL COVID-19 ([facility]) NEGATIVE (NEGATIVE) Result Diagrams: 10/25/19 17:40 10/25/19 17:40 Sepsis Event Note - Evaluation Sepsis Screening Result: No Definite Risk - Focused Exam Vital Signs: Vital Signs Temp Pulse Resp BP BP Pulse Ox 10/25/19 21:35 36.8 C 80 16 135/86 95 10/25/19 20:15 36.2 C 89 18 121/83 95 10/25/19 19:35 82 18 141/88 H 10/25/19 19:05 92 16 131/78 10/25/19 18:37 92 15 124/77 93 L 10/25/19 17:44 35.9 C L 100 18 139/84 97 Date Exam was Performed: 10/26/19 Time Exam was Performed: 10:08 Problem List Initiated/Reviewed/Updated: Yes Orders Last 24hrs: Active Orders 24 hr Category Date Time Status Patient Status [ADT] Routine ADT 10/25/19 20:21 Active Accu Check [Blood Glucose Check, Bedside] [RC] TIDAC Care 10/26/19 07:30 Active EKG Documentation Completion [RC] STAT Care 10/25/19 17:38 Active Telemetry Monitoring [Cardiac Monitoring] [RC] Q8H Care 10/25/19 20:41 Active [employer] Diet [DIET] Diet 10/25/19 Dinner Active TROPONIN I [CHEM] Q6H Lab 10/25/19 23:40 Ordered TROPONIN I [CHEM] Q6H Lab 10/26/19 05:40 Ordered Acetaminophen [Tylenol] Med 10/25/19 22:04 Active 650 mg PO Q6H PRN Insulin Aspart [NovoLOG] Med 10/26/19 07:30 Active See Protocol SUBCUT TIDAC Morphine Med 10/25/19 22:02 Active 2 mg IVPUSH Q3H PRN Sodium Chloride 0.9% [Saline Flush] Med 10/25/19 17:37 Active 10 ml FLUSH ASDIRECTED PRN Sodium Chloride 0.9% [Saline Flush] Med 10/25/19 17:37 Active 2.5 ml FLUSH ASDIRECTED PRN Saline Lock Insert [OM.PC] Stat Oth 10/25/19 17:37 Ordered Medication Orders Acetaminophen (Tylenol) 650 mg PO Q6H PRN PRN Reason: Pain Insulin Aspart (Novolog) 0 unit SUBCUT TIDAC MARYANA; Protocol Morphine Sulfate (Morphine) 2 mg IVPUSH Q3H PRN PRN Reason: Pain Last Admin: 10/25/19 22:33 Dose: 2 mg Documented by: CHERYL Sodium Chloride (Saline Flush) 10 ml FLUSH ASDIRECTED PRN PRN Reason: Keep Vein Open Last Admin: 10/25/19 17:46 Dose: 10 ml Documented by: YOLY Sodium Chloride (Saline Flush) 2.5 ml FLUSH ASDIRECTED PRN PRN Reason: Keep Vein Open Last Admin: 10/25/19 17:46 Dose: 2.5 ml Documented by: YOLY Assessment/Plan Comment:: 44 yo female admitted for shoulder/chest pain. CT chest angio, EKG, and serial cardiac enzymes have been negative. She was monitored overnight without any events. Patient was discharged home to have follow up with Dr. Cartagena.
[2019-10-25] MEDS: Insulin Detemir 100 Units/ML 3 ML Pen SUBCUT SCH (23:55)
[2019-10-26] MEDS: Morphine 2 MG/ML SYRINGE IVPUSH PRN ×3 (02:14→09:35)
[2019-10-26] MEDS ORDERED: Insulin Aspart 100 Units/ML 3 ML Pen SUBCUT SCH (07:30)
[2019-10-26] MEDS: Insulin Detemir 100 Units/ML 3 ML Pen SUBCUT SCH (08:05)
[2019-10-26 08:25] VITALS: BP 126/85; PULSE 85
[2019-10-26] MEDS ORDERED: atorvaSTATin 10 MG Tab PO SCH (21:00)
== END 2019-10-26 11:45 | disposition home or self-care (01) ==
LOC: MW.ED 17:31 → MW.MS 20:21
PROVIDERS: ADMIT Internal Medicine; ATTEND Internal Medicine
DX: R07.9 Chest pain, unspecified (principal); M25.512 Pain in left shoulder; J45.909 Unspecified asthma, uncomplicated; E11.9 Type 2 diabetes mellitus without complications; K21.9 Gastro-esophageal reflux disease without esophagitis; F41.9 Anxiety disorder, unspecified; F32.9 Major depressive disorder, single episode, unspecified; F17.210 Nicotine dependence, cigarettes, uncomplicated; E78.00 Pure hypercholesterolemia, unspecified; G47.30 Sleep apnea, unspecified; Z20.828 Contact with and (suspected) exposure to other viral communicable diseases; Z88.5 Allergy status to narcotic agent; Z79.4 Long term (current) use of insulin; Z88.1 Allergy status to other antibiotic agents; Z88.6 Allergy status to analgesic agent; Z91.040 Latex allergy status; Z88.0 Allergy status to penicillin; Z79.899 Other long term (current) drug therapy
CPT/HCPCS: 36415; 71045; 71275; 80053; 82962; 83690; 83880; 84443; 84484; 85025; 93005; 96374; 96376; 99285; A9270; G0378; J1815; J2270; Q9967; U0002; 99284

== ENCOUNTER 2022-05-21 09:36 | Emergency (ER) | payer MEDICARE, MEDICAID ==
[2022-05-21] MEDS ORDERED: Acetaminophen/oxyCODONE 325-5 MG Tab PO ONE (10:02)
[2022-05-21] MEDS ORDERED: Ibuprofen 600 MG Tab PO ONE (10:02)
[2022-05-21 12:26] VITALS: BP 115/68; PULSE 89
== END 2022-05-21 11:50 | disposition home or self-care (01) ==
LOC: MW.ED 09:36
DX: S92.142A Displaced dome fracture of left talus, initial encounter for closed fracture (principal); S93.402A Sprain of unspecified ligament of left ankle, initial encounter; J45.909 Unspecified asthma, uncomplicated; K21.9 Gastro-esophageal reflux disease without esophagitis; E11.9 Type 2 diabetes mellitus without complications; I10 Essential (primary) hypertension; J44.9 Chronic obstructive pulmonary disease, unspecified; Z72.0 Tobacco use; Z88.5 Allergy status to narcotic agent; Z88.1 Allergy status to other antibiotic agents; Z91.040 Latex allergy status; Z88.8 Allergy status to other drugs, medicaments and biological substances; X50.1XXA Overexertion from prolonged static or awkward postures, initial encounter
CPT/HCPCS: 29515; 73610; 99283; A9270

== ENCOUNTER 2022-09-09 03:23 | Emergency (ER) | payer MEDICARE, MEDICAID ==
[2022-09-09 03:35] VITALS: BP 177/118; PULSE 96
== END 2022-09-09 03:44 ==
LOC: MW.ED 03:23
DX: R45.851 Suicidal ideations (principal); K21.9 Gastro-esophageal reflux disease without esophagitis; E11.9 Type 2 diabetes mellitus without complications; J45.909 Unspecified asthma, uncomplicated; Z88.0 Allergy status to penicillin; Z88.5 Allergy status to narcotic agent; Z88.1 Allergy status to other antibiotic agents; Z88.8 Allergy status to other drugs, medicaments and biological substances; Z91.040 Latex allergy status; Z79.899 Other long term (current) drug therapy; Z79.4 Long term (current) use of insulin
CPT/HCPCS: 99282

== ENCOUNTER 2022-10-13 02:14 | Emergency (ER) | payer MEDICARE, MEDICAID ==
[2022-10-13] MEDS ORDERED: Ibuprofen 600 MG Tab PO ONE (02:20)
[2022-10-13] MEDS ORDERED: Acetaminophen 500 MG Tab PO ONE (02:20)
[2022-10-13 02:36] VITALS: BP 145/90; PULSE 72
== END 2022-10-13 02:30 ==
LOC: MW.ED 02:14
DX: R51.9 Headache, unspecified (principal); J45.909 Unspecified asthma, uncomplicated; K21.9 Gastro-esophageal reflux disease without esophagitis; E11.9 Type 2 diabetes mellitus without complications; Z88.8 Allergy status to other drugs, medicaments and biological substances; Z88.5 Allergy status to narcotic agent; Z91.040 Latex allergy status; Z88.6 Allergy status to analgesic agent; Z88.0 Allergy status to penicillin; Z79.899 Other long term (current) drug therapy; Z79.4 Long term (current) use of insulin; Z98.890 Other specified postprocedural states
CPT/HCPCS: 99284; A9270; 99283

== ENCOUNTER 2023-12-22 15:12 | Emergency (ER) | payer MEDICARE, OTHER ==
[2023-12-22 15:37] VITALS: BP 160/91; PULSE 95
[2023-12-22 16:48] LABS: BILIRUBIN,URINE NEGATIVE (NEGATIVE); COLOR,URINE YELLOW; GLUCOSE,URINE >=1000 mg/dL (NEGATIVE); KETONES,URINE NEGATIVE (NEGATIVE); LEUKOCYTE ESTERASE,URINE NEGATIVE (NEGATIVE); NITRITE,URINE NEGATIVE (NEGATIVE); OCCULT BLOOD,URINE NEGATIVE (NEGATIVE); PROTEIN,URINE NEGATIVE (NEGATIVE); UROBILINOGEN,URINE 0.2 EU/dL (<2.0)
[2023-12-22 17:04] LABS: APPEARANCE,URINE HAZY
[2023-12-22 17:13] LABS: BASOPHILS ABSOLUTE AUTO 0.06 K/uL (0.00-0.20); BASOPHILS PERCENT AUTO 0.9 % (0.0-1.0); EOSINOPHILS ABSOLUTE AUTO 0.09 K/uL (0.00-0.45); EOSINOPHILS PERCENT AUTO 1.3 % (0.0-6.0); HEMATOCRIT 41.3 % (37.0-47.0); HEMOGLOBIN 14.5 g/dL (12.0-16.0); IMMATURE GRAN ABSOLUTE AUTO 0.01 K/uL (0.00-0.05); IMMATURE GRAN PERCENT AUTO 0.1 % (0.0-0.4); LYMPHOCYTES ABSOLUTE AUTO 2.16 K/uL (1.00-4.80); LYMPHOCYTES PERCENT AUTO 31.9 % (24.0-44.0); MEAN CORPUSCULAR HEMOGLOBIN 29.8 pg (28.0-32.0); MEAN CORPUSCULAR HGB CONC 35.1 g/dL (32.0-36.0); MEAN PLATELET VOLUME 9.2 fL (9.4-12.3); MONOCYTES ABSOLUTE AUTO 0.39 K/uL (0.00-0.80); MONOCYTES PERCENT AUTO 5.8 % (0.0-8.0); NEUTROPHILS ABSOLUTE AUTO 4.06 K/uL (1.80-7.70); PLATELET COUNT,PLT 312 K/uL (150-400); RED BLOOD CELL COUNT 4.86 M/uL (4.10-5.30); WHITE BLOOD CELL COUNT,WBC 6.77 K/uL (3.9-11.3)
[2023-12-22 17:37] LABS: ALBUMIN 3.8 g/dL (3.4-5.0); BILIRUBIN TOTAL 0.5 mg/dL (0.2-1.0); CALCIUM 9.4 mg/dL (8.5-10.1); CARBON DIOXIDE,CO2 29.6 mmol/L (21.0-32.0); CREATININE 0.8 mg/dL (0.6-1.0); EST CRCL DRUG DOSING (CG) 71.14 mL/min; POTASSIUM,K 4.4 mmol/L (3.5-5.1); PROTEIN TOTAL,TP 7.7 g/dL (6.4-8.2)
[2023-12-22] MEDS: Sodium Chloride 0.9% 1,000 ML IV ONE ×2 (19:19→19:20)
[2023-12-22] MEDS: Sodium Chloride 0.9% 10 ML Syringe FLUSH PRN (19:36)
[2023-12-22] MEDS: Sodium Chloride 0.9% 2.5 ML Syringe FLUSH PRN (19:36)
== END 2023-12-22 20:51 ==
LOC: MW.ED 15:12
DX: E11.65 Type 2 diabetes mellitus with hyperglycemia (principal); J45.909 Unspecified asthma, uncomplicated; K21.9 Gastro-esophageal reflux disease without esophagitis; Z79.84 Long term (current) use of oral hypoglycemic drugs; Z79.899 Other long term (current) drug therapy; Z88.8 Allergy status to other drugs, medicaments and biological substances; Z88.0 Allergy status to penicillin; Z88.1 Allergy status to other antibiotic agents; Z88.5 Allergy status to narcotic agent; Z88.6 Allergy status to analgesic agent; Z91.040 Latex allergy status; F17.210 Nicotine dependence, cigarettes, uncomplicated
CPT/HCPCS: 36415; 74176; 80053; 81003; 81025; 82947; 83690; 85025; 96360; 99284; J3490; J7030; 99283

== ENCOUNTER 2023-12-24 23:27 | Emergency (ER) | payer MEDICARE ==
[2023-12-25 00:26] LABS: APPEARANCE,URINE CLEAR; BILIRUBIN,URINE NEGATIVE (NEGATIVE); COLOR,URINE YELLOW; GLUCOSE,URINE >=1000 mg/dL (NEGATIVE); KETONES,URINE NEGATIVE (NEGATIVE); LEUKOCYTE ESTERASE,URINE NEGATIVE (NEGATIVE); NITRITE,URINE NEGATIVE (NEGATIVE); OCCULT BLOOD,URINE NEGATIVE (NEGATIVE); PROTEIN,URINE NEGATIVE (NEGATIVE); UROBILINOGEN,URINE 0.2 EU/dL (<2.0)
[2023-12-25 00:32] LABS: BASOPHILS ABSOLUTE AUTO 0.06 K/uL (0.00-0.20); BASOPHILS PERCENT AUTO 0.8 % (0.0-1.0); EOSINOPHILS ABSOLUTE AUTO 0.17 K/uL (0.00-0.45); EOSINOPHILS PERCENT AUTO 2.3 % (0.0-6.0); HEMOGLOBIN 13.4 g/dL (12.0-16.0); IMMATURE GRAN ABSOLUTE AUTO 0.02 K/uL (0.00-0.05); IMMATURE GRAN PERCENT AUTO 0.3 % (0.0-0.4); LYMPHOCYTES PERCENT AUTO 58.6 % (24.0-44.0); MEAN CORPUSCULAR HGB CONC 35.3 g/dL (32.0-36.0); MEAN PLATELET VOLUME 9.2 fL (9.4-12.3); MONOCYTES ABSOLUTE AUTO 0.45 K/uL (0.00-0.80); NEUTROPHILS ABSOLUTE AUTO 2.41 K/uL (1.80-7.70); PLATELET COUNT,PLT 299 K/uL (150-400); RED BLOOD CELL COUNT 4.47 M/uL (4.10-5.30); WHITE BLOOD CELL COUNT,WBC 7.51 K/uL (3.9-11.3)
[2023-12-25 00:35] LABS: AMPHETAMINES SCREEN, URINE PRESUMPTIVE POSITIVE (CUTOFF=500); BARBITURATE SCREEN,URINE NEGATIVE (CUTOFF=200); BENZODIAZEPINES SCREEN,URINE NEGATIVE (CUTOFF=150); BUPRENORPHINE SCREEN,URINE NEGATIVE (CUTOFF=10); METHADONE SCREEN, URINE NEGATIVE (CUTOFF=200); METHAMPHETAMINES SCREEN, URINE NEGATIVE (CUTOFF=500); OXYCODONE SCREEN,URINE NEGATIVE (CUT0FF=100); PCP SCREEN,URINE NEGATIVE (CUTOFF=25); THC SCREEN,URINE 20 NG/ML NEGATIVE (CUTOFF=50)
[2023-12-25 00:59] LABS: HEMOGLOBIN A1C 12.7 %
[2023-12-25 01:08] LABS: ALBUMIN 3.3 g/dL (3.4-5.0); BILIRUBIN TOTAL 0.4 mg/dL (0.2-1.0); CALCIUM 8.9 mg/dL (8.5-10.1); CARBON DIOXIDE,CO2 29.7 mmol/L (21.0-32.0); CREATININE 0.8 mg/dL (0.6-1.0); EST CRCL DRUG DOSING (CG) 71.14 mL/min; PROTEIN TOTAL,TP 6.7 g/dL (6.4-8.2)
[2023-12-25 01:53] VITALS: BP 121/86; PULSE 71
== END 2023-12-25 01:59 | disposition home or self-care (01) ==
LOC: MW.ED 23:27
DX: M25.552 Pain in left hip (principal); G89.29 Other chronic pain; R79.89 Other specified abnormal findings of blood chemistry; E11.65 Type 2 diabetes mellitus with hyperglycemia; F15.90 Other stimulant use, unspecified, uncomplicated; R03.0 Elevated blood-pressure reading, without diagnosis of hypertension; D68.9 Coagulation defect, unspecified; Z88.0 Allergy status to penicillin; Z91.040 Latex allergy status; Z88.8 Allergy status to other drugs, medicaments and biological substances; Z90.49 Acquired absence of other specified parts of digestive tract; Z90.710 Acquired absence of both cervix and uterus; Z75.8 Other problems related to medical facilities and other health care
CPT/HCPCS: 36415; 73502-26-LT; 73502-LT; 80053; 80305-QW; 81003; 81025; 82947; 83036; 83690; 83735; 85025; 99284; 99285

== ENCOUNTER 2024-01-06 19:50 | Emergency (ER) | payer OTHER, MEDICARE ==
[2024-01-06] MEDS: Sodium Chloride 0.9% 1,000 ML IV ONE (20:25)
[2024-01-06 20:27] LABS: BASOPHILS ABSOLUTE AUTO 0.07 K/uL (0.00-0.20); BASOPHILS PERCENT AUTO 1.1 % (0.0-1.0); EOSINOPHILS ABSOLUTE AUTO 0.16 K/uL (0.00-0.45); EOSINOPHILS PERCENT AUTO 2.6 % (0.0-6.0); HEMATOCRIT 42.3 % (37.0-47.0); IMMATURE GRAN ABSOLUTE AUTO 0.01 K/uL (0.00-0.05); IMMATURE GRAN PERCENT AUTO 0.2 % (0.0-0.4); LYMPHOCYTES ABSOLUTE AUTO 2.92 K/uL (1.00-4.80); LYMPHOCYTES PERCENT AUTO 47.9 % (24.0-44.0); MEAN CORPUSCULAR HEMOGLOBIN 30.2 pg (28.0-32.0); MEAN CORPUSCULAR HGB CONC 35.5 g/dL (32.0-36.0); MEAN CORPUSCULAR VOLUME 85.3 fL (83.0-99.0); MEAN PLATELET VOLUME 9.4 fL (9.4-12.3); MONOCYTES ABSOLUTE AUTO 0.34 K/uL (0.00-0.80); MONOCYTES PERCENT AUTO 5.6 % (0.0-8.0); NEUTROPHILS ABSOLUTE AUTO 2.59 K/uL (1.80-7.70); NEUTROPHILS PERCENT AUTO 42.6 % (41.0-71.0); PLATELET COUNT,PLT 359 K/uL (150-400); RED BLOOD CELL COUNT 4.96 M/uL (4.10-5.30); WHITE BLOOD CELL COUNT,WBC 6.09 K/uL (3.9-11.3)
[2024-01-06 20:55] LABS: A/G RATIO 0.9 (0.9-1.6); ALBUMIN 3.5 g/dL (3.4-5.0); BILIRUBIN TOTAL 0.2 mg/dL (0.2-1.0); CALCIUM 9.3 mg/dL (8.5-10.1); CARBON DIOXIDE,CO2 26.6 mmol/L (21.0-32.0); CREATININE 0.9 mg/dL (0.6-1.0); EST CRCL DRUG DOSING (CG) 63.24 mL/min; PROTEIN TOTAL,TP 7.5 g/dL (6.4-8.2)
[2024-01-06 20:59] LABS: POTASSIUM,K 4.7 mmol/L (3.5-5.1)
[2024-01-06 21:06] LABS: CORONAVIRUS COVID-19 NAA NEGATIVE (NEGATIVE); INFLUENZA A NAA NEGATIVE (NEGATIVE); INFLUENZA B NAA NEGATIVE (NEGATIVE)
[2024-01-06 21:06] LABS: APPEARANCE,URINE CLEAR; BILIRUBIN,URINE NEGATIVE (NEGATIVE); COLOR,URINE YELLOW; GLUCOSE,URINE >=1000 mg/dL (NEGATIVE); KETONES,URINE NEGATIVE (NEGATIVE); LEUKOCYTE ESTERASE,URINE NEGATIVE (NEGATIVE); NITRITE,URINE NEGATIVE (NEGATIVE); OCCULT BLOOD,URINE NEGATIVE (NEGATIVE); PROTEIN,URINE NEGATIVE (NEGATIVE); UROBILINOGEN,URINE 0.2 EU/dL (<2.0)
[2024-01-06] MEDS ORDERED: 50% Dextrose in Water 50 ML Syringe IVPUSH PRN (21:18)
[2024-01-06] MEDS ORDERED: Glucagon,Human Recombinant 1 MG Vial IM PRN (21:18)
[2024-01-06] MEDS: Insulin Regular, Human 100 Units/ML 10 ML Vial SUBCUT ONE (21:26)
[2024-01-06] MEDS: Acetaminophen 500 MG Tab PO ONE (22:01)
[2024-01-07 00:31] VITALS: BP 130/90; PULSE 88
== END 2024-01-06 22:05 | disposition home or self-care (01) ==
LOC: MW.ED 19:50
DX: Z02.89 Encounter for other administrative examinations (principal); R07.9 Chest pain, unspecified; E11.65 Type 2 diabetes mellitus with hyperglycemia; Z91.148 Patient's other noncompliance with medication regimen for other reason; Z90.49 Acquired absence of other specified parts of digestive tract; Z88.0 Allergy status to penicillin; Z88.1 Allergy status to other antibiotic agents; Z88.5 Allergy status to narcotic agent; Z91.040 Latex allergy status; Z88.8 Allergy status to other drugs, medicaments and biological substances; Z75.8 Other problems related to medical facilities and other health care
CPT/HCPCS: 0240U; 36415; 71045; 80053; 81003; 82009; 82947; 84484; 85025; 93005; 96360; 99285; A9270; J7030; 93010; J1815-GY

== ENCOUNTER 2024-01-15 22:29 | Emergency (ER) | payer MEDICARE, OTHER ==
[2024-01-16] MEDS: diphenhydrAMINE 50 MG Cap PO ONE (01:00)
[2024-01-16] MEDS: Metoclopramide 5 MG Tab PO ONE (01:00)
[2024-01-16] MEDS: Ketorolac 30 MG/ML SDV IM ONE (01:01)
[2024-01-16 01:57] VITALS: BP 138/89; PULSE 85
== END 2024-01-16 01:58 | disposition home or self-care (01) ==
LOC: MW.ED 22:29
DX: R51.9 Headache, unspecified (principal); J45.909 Unspecified asthma, uncomplicated; E11.9 Type 2 diabetes mellitus without complications; Z88.0 Allergy status to penicillin; Z91.040 Latex allergy status; Z88.8 Allergy status to other drugs, medicaments and biological substances; Z79.84 Long term (current) use of oral hypoglycemic drugs; Z90.49 Acquired absence of other specified parts of digestive tract; Z90.710 Acquired absence of both cervix and uterus
CPT/HCPCS: 96372; 99283; A9270; J1885

== ENCOUNTER 2024-05-02 21:57 | Emergency (ER) | payer MEDICARE, OTHER ==
[2024-05-02] MEDS ORDERED: Sodium Chloride 0.9% 2.5 ML Syringe FLUSH PRN (22:12)
[2024-05-02] MEDS ORDERED: Sodium Chloride 0.9% 10 ML Syringe FLUSH PRN (22:12)
[2024-05-02] MEDS ORDERED: 50% Dextrose in Water 50 ML Syringe IVPUSH PRN (22:13)
[2024-05-02] MEDS ORDERED: Glucagon,Human Recombinant 1 MG Vial IM PRN (22:13)
[2024-05-02] MEDS: Sodium Chloride 0.9% 1,000 ML IV STA (22:27)
[2024-05-02] MEDS: Insulin Regular, Human 100 Units/ML 10 ML Vial IVPUSH STA (22:33)
[2024-05-02] MEDS: Acetaminophen 500 MG Tab PO STA (22:39)
[2024-05-02 22:55] LABS: A/G RATIO 0.8 (0.9-1.6); ALANINE AMINOTRANSFERASE,ALT 26 IU/L (14-63); ALBUMIN 3.5 g/dL (3.4-5.0); ALKALINE PHOSPHATASE 167 U/L (46-116); ASPARTATE AMNIOTRANSFERASE,AST 5 IU/L (15-37); BILIRUBIN TOTAL 0.3 mg/dL (0.2-1.0); BLOOD UREA NITROGEN,BUN 12 mg/dL (7.0-18.0); CALCIUM 9.4 mg/dL (8.5-10.1); CARBON DIOXIDE,CO2 23.4 mmol/L (21.0-32.0); CHLORIDE,CL 91 mmol/L (98-107); CREATININE 0.8 mg/dL (0.6-1.0); GLUCOSE RANDOM 483 mg/dL (74-106); POTASSIUM,K 4.3 mmol/L (3.5-5.1); PROTEIN TOTAL,TP 7.9 g/dL (6.4-8.2); SODIUM,NA 127 mmol/L (136-145)
[2024-05-02 23:23] LABS: ESTIMATED GFR 91 mL/min (>60)
[2024-05-02 23:56] VITALS: BP 126/80; PULSE 76
== END 2024-05-02 23:55 ==
LOC: MW.ED 21:57
DX: Z02.89 Encounter for other administrative examinations (principal); E11.65 Type 2 diabetes mellitus with hyperglycemia; R05.1 Acute cough; F17.210 Nicotine dependence, cigarettes, uncomplicated; Z91.148 Patient's other noncompliance with medication regimen for other reason; Z90.49 Acquired absence of other specified parts of digestive tract; Z90.710 Acquired absence of both cervix and uterus; Z88.0 Allergy status to penicillin; Z88.6 Allergy status to analgesic agent; Z91.040 Latex allergy status; Z88.8 Allergy status to other drugs, medicaments and biological substances; Z88.5 Allergy status to narcotic agent; Z88.1 Allergy status to other antibiotic agents; Z75.8 Other problems related to medical facilities and other health care
CPT/HCPCS: 36415; 71046; 80053; 82947; 84703; 96360; 99285; A9270; J7030; J1815-GY

== ENCOUNTER 2024-05-23 15:56 | Emergency (ER) | payer MEDICARE ==
[2024-05-23 16:27] LABS: APPEARANCE,URINE CLOUDY; BILIRUBIN,URINE NEGATIVE (NEGATIVE); COLOR,URINE YELLOW; GLUCOSE,URINE >=1000 mg/dL (NEGATIVE); KETONES,URINE NEGATIVE (NEGATIVE); LEUKOCYTE ESTERASE,URINE TRACE (NEGATIVE); NITRITE,URINE POSITIVE (NEGATIVE); OCCULT BLOOD,URINE TRACE-INTACT (NEGATIVE); PH,URINE 5.5 (5.0-8.0); PROTEIN,URINE NEGATIVE (NEGATIVE); UROBILINOGEN,URINE 0.2 EU/dL (<2.0)
[2024-05-23 16:43] LABS: BACTERIA,URINE 2+ (NEGATIVE); EPITHELIAL CELLS,URINE RARE (NONE-FEW); RBC,URINE 0-2 (0-2/HPF); WBC,URINE 50-60 (0-5/HPF)
[2024-05-23] MEDS: Orphenadrine 60 MG/2 ML Inj IM ONE (16:58)
[2024-05-23 17:50] VITALS: BP 134/100; PULSE 86
== END 2024-05-23 17:50 | disposition home or self-care (01) ==
LOC: MW.ED 15:56
DX: N12 Tubulo-interstitial nephritis, not specified as acute or chronic (principal); J45.909 Unspecified asthma, uncomplicated; E11.9 Type 2 diabetes mellitus without complications; Z90.49 Acquired absence of other specified parts of digestive tract; Z90.710 Acquired absence of both cervix and uterus; Z88.0 Allergy status to penicillin; Z88.5 Allergy status to narcotic agent; Z88.8 Allergy status to other drugs, medicaments and biological substances; Z91.040 Latex allergy status; Z79.899 Other long term (current) drug therapy; Z75.8 Other problems related to medical facilities and other health care
CPT/HCPCS: 81001; 87086; 96372; 99284; J2360; 87088; 87186

== ENCOUNTER 2024-05-26 14:55 | Emergency (ER) | payer MEDICARE ==
[2024-05-26] MEDS ORDERED: Sodium Chloride 0.9% 2.5 ML Syringe FLUSH PRN (15:26)
[2024-05-26] MEDS ORDERED: Sodium Chloride 0.9% 10 ML Syringe FLUSH PRN (15:26)
[2024-05-26 15:44] LABS: BASOPHILS ABSOLUTE AUTO 0.08 K/uL (0.00-0.20); BASOPHILS PERCENT AUTO 1.1 % (0.0-1.0); EOSINOPHILS ABSOLUTE AUTO 0.24 K/uL (0.00-0.45); EOSINOPHILS PERCENT AUTO 3.3 % (0.0-6.0); HEMOGLOBIN 14.1 g/dL (12.0-16.0); IMMATURE GRAN ABSOLUTE AUTO 0.01 K/uL (0.00-0.05); IMMATURE GRAN PERCENT AUTO 0.1 % (0.0-0.4); LYMPHOCYTES PERCENT AUTO 40.8 % (24.0-44.0); MEAN CORPUSCULAR HEMOGLOBIN 29.8 pg (28.0-32.0); MEAN CORPUSCULAR HGB CONC 35.3 g/dL (32.0-36.0); MEAN CORPUSCULAR VOLUME 84.6 fL (83.0-99.0); MEAN PLATELET VOLUME 9.2 fL (9.4-12.3); MONOCYTES ABSOLUTE AUTO 0.56 K/uL (0.00-0.80); MONOCYTES PERCENT AUTO 7.6 % (0.0-8.0); NEUTROPHILS ABSOLUTE AUTO 3.47 K/uL (1.80-7.70); NEUTROPHILS PERCENT AUTO 47.1 % (41.0-71.0); PLATELET COUNT,PLT 407 K/uL (150-400); RED BLOOD CELL COUNT 4.73 M/uL (4.10-5.30); WHITE BLOOD CELL COUNT,WBC 7.36 K/uL (3.9-11.3)
[2024-05-26] MEDS: Acetaminophen 500 MG Tab PO STA (15:45)
[2024-05-26] MEDS: Sodium Chloride 0.9% 1,000 ML IV STA ×2 (15:46→16:55)
[2024-05-26 16:15] LABS: AMPHETAMINES SCREEN, URINE NEGATIVE (CUTOFF=500); APPEARANCE,URINE SLT CLOUDY; BARBITURATE SCREEN,URINE NEGATIVE (CUTOFF=200); BENZODIAZEPINES SCREEN,URINE NEGATIVE (CUTOFF=150); BILIRUBIN,URINE NEGATIVE (NEGATIVE); BUPRENORPHINE SCREEN,URINE NEGATIVE (CUTOFF=10); COLOR,URINE YELLOW; GLUCOSE,URINE >=1000 mg/dL (NEGATIVE); KETONES,URINE NEGATIVE (NEGATIVE); LEUKOCYTE ESTERASE,URINE TRACE (NEGATIVE); METHADONE SCREEN, URINE NEGATIVE (CUTOFF=200); METHAMPHETAMINES SCREEN, URINE NEGATIVE (CUTOFF=500); NITRITE,URINE NEGATIVE (NEGATIVE); OCCULT BLOOD,URINE TRACE-INTACT (NEGATIVE); OXYCODONE SCREEN,URINE NEGATIVE (CUT0FF=100); PCP SCREEN,URINE NEGATIVE (CUTOFF=25); PROTEIN,URINE TRACE mg/dL (NEGATIVE); THC SCREEN,URINE 20 NG/ML NEGATIVE (CUTOFF=50); UROBILINOGEN,URINE 0.2 EU/dL (<2.0)
[2024-05-26 16:25] LABS: BACTERIA,URINE 1+ (NEGATIVE); EPITHELIAL CELLS,URINE FEW (NONE-FEW); RBC,URINE 0-5 (0-2/HPF); WBC,URINE 50-75 (0-5/HPF)
[2024-05-26 16:39] LABS: A/G RATIO 0.7 (0.9-1.6); ALBUMIN 3.2 g/dL (3.4-5.0); BILIRUBIN TOTAL 0.2 mg/dL (0.2-1.0); CALCIUM 9.1 mg/dL (8.5-10.1); CARBON DIOXIDE,CO2 27.3 mmol/L (21.0-32.0); CREATININE 0.9 mg/dL (0.6-1.0); EST CRCL DRUG DOSING (CG) 63.24 mL/min; POTASSIUM,K 4.5 mmol/L (3.5-5.1); PROTEIN TOTAL,TP 7.7 g/dL (6.4-8.2)
[2024-05-26] MEDS: Levofloxacin/Dextrose 5%-Water 750 MG in Premix Bag 1 BAG IV STA (16:55)
[2024-05-26] MEDS: Iopamidol 755 MG/ML 500 ML Multipack Bottle IVPUSH STA (18:29)
[2024-05-26 19:38] VITALS: BP 147/90; PULSE 78
== END 2024-05-26 19:36 | disposition home or self-care (01) ==
LOC: MW.ED 14:55
DX: K59.00 Constipation, unspecified (principal); N39.0 Urinary tract infection, site not specified; J45.909 Unspecified asthma, uncomplicated; E11.9 Type 2 diabetes mellitus without complications; F17.210 Nicotine dependence, cigarettes, uncomplicated; Z75.8 Other problems related to medical facilities and other health care; Z88.0 Allergy status to penicillin; Z88.6 Allergy status to analgesic agent; Z88.5 Allergy status to narcotic agent; Z91.040 Latex allergy status; Z88.8 Allergy status to other drugs, medicaments and biological substances; Z79.899 Other long term (current) drug therapy; Z90.49 Acquired absence of other specified parts of digestive tract; Z90.710 Acquired absence of both cervix and uterus
CPT/HCPCS: 36415; 74177; 80053; 80305; 81001; 81025; 83690; 85025; 87086; 87088; 87186; 96361; 96365; 99284; A9270; J1956; J7030; Q9967

== ENCOUNTER 2025-01-15 20:55 | Emergency (ER) | payer MEDICARE, MEDICAID ==
[2025-01-15] MEDS ORDERED: Sodium Chloride 0.9% 2.5 ML Syringe FLUSH PRN (20:57)
[2025-01-15] MEDS ORDERED: Sodium Chloride 0.9% 10 ML Syringe FLUSH PRN (20:57)
[2025-01-15 21:07] LABS: BASOPHILS ABSOLUTE AUTO 0.07 K/uL (0.00-0.20); BASOPHILS PERCENT AUTO 0.8 % (0.0-1.0); EOSINOPHILS ABSOLUTE AUTO 0.20 K/uL (0.00-0.45); EOSINOPHILS PERCENT AUTO 2.4 % (0.0-6.0); IMMATURE GRAN ABSOLUTE AUTO 0.01 K/uL (0.00-0.05); IMMATURE GRAN PERCENT AUTO 0.1 % (0.0-0.4); LYMPHOCYTES ABSOLUTE AUTO 3.56 K/uL (1.00-4.80); LYMPHOCYTES PERCENT AUTO 42.9 % (24.0-44.0); MEAN PLATELET VOLUME 9.5 fL (9.4-12.3); MONOCYTES ABSOLUTE AUTO 0.59 K/uL (0.00-0.80); MONOCYTES PERCENT AUTO 7.1 % (0.0-8.0); NEUTROPHILS ABSOLUTE AUTO 3.86 K/uL (1.80-7.70); NEUTROPHILS PERCENT AUTO 46.7 % (41.0-71.0); NRBC ABSOLUTE 0.00 K/uL (0.00-0.02); NRBC PERCENT 0.0 /100WBC (0.0-0.2); PLATELET COUNT,PLT 317 K/uL (150-400); RED BLOOD CELL COUNT 4.86 M/uL (4.10-5.30); WHITE BLOOD CELL COUNT,WBC 8.29 K/uL (3.9-11.3)
[2025-01-15] MEDS: Nitroglycerin 0.4 MG Tab.SL SL PRN (21:16)
[2025-01-15 21:22] LABS: INR 0.93 (0.86-1.11)
[2025-01-15 21:26] VITALS: BP 118/83
[2025-01-15 21:27] VITALS: PULSE 104
[2025-01-15 21:41] LABS: A/G RATIO 1.0 (0.9-1.6); ALANINE AMINOTRANSFERASE,ALT 24.0 IU/L (14-63); ASPARTATE AMNIOTRANSFERASE,AST 16.0 IU/L (15-37); BILIRUBIN TOTAL 0.6 mg/dL (0.2-1.0); BLOOD UREA NITROGEN,BUN 23.0 mg/dL (7.0-18.0); CARBON DIOXIDE,CO2 22.9 mmol/L (21.0-32.0); CHLORIDE,CL 94.0 mmol/L (98-107); CREATININE 0.7 mg/dL (0.6-1.0); EST CRCL DRUG DOSING (CG) 80.42 mL/min; ESTIMATED GFR 106.0 mL/min (>60); GLUCOSE RANDOM 410.0 mg/dL (74-106); POTASSIUM,K 3.7 mmol/L (3.5-5.1); PRO B-TYPE NATRIUR PEPT,BNPPRO 40.0 pg/mL (0-125); PROTEIN TOTAL,TP 8.5 g/dL (6.4-8.2); SODIUM,NA 132.0 mmol/L (136-145)
[2025-01-15] MEDS: Iopamidol 755 MG/ML 500 ML Multipack Bottle IVPUSH ONE (21:57)
[2025-01-15] MEDS: Heparin Sodium/0.45% NaCl 25,000 UNITS/250 ML BAG ONE (22:06)
[2025-01-15] MEDS: Heparin Sodium/0.45% NaCl 25,000 UNITS/250 ML BAG IV SCH (22:06)
[2025-01-15] MEDS: Heparin Sodium 5,000 Units/ML Vial IVPUSH ONE (22:07)
[2025-01-15 22:36] LABS: APPEARANCE,URINE CLEAR; GLUCOSE,URINE >=1000 mg/dL (NEGATIVE); OCCULT BLOOD,URINE NEGATIVE (NEGATIVE)
[2025-01-15 22:41] LABS: AMPHETAMINES SCREEN, URINE PRESUMPTIVE POSITIVE (CUTOFF=500); BUPRENORPHINE SCREEN,URINE NEGATIVE (CUTOFF=10); METHADONE SCREEN, URINE NEGATIVE (CUTOFF=200); METHAMPHETAMINES SCREEN, URINE PRESUMPTIVE POSITIVE (CUTOFF=500); OXYCODONE SCREEN,URINE NEGATIVE (CUT0FF=100); PCP SCREEN,URINE NEGATIVE (CUTOFF=25); THC SCREEN,URINE 20 NG/ML NEGATIVE (CUTOFF=50)
== END 2025-01-15 22:42 ==
LOC: MW.ED 20:55
DX: I21.3 ST elevation (STEMI) myocardial infarction of unspecified site (principal); I16.1 Hypertensive emergency; E11.65 Type 2 diabetes mellitus with hyperglycemia; R46.89 Other symptoms and signs involving appearance and behavior; R91.8 Other nonspecific abnormal finding of lung field; I47.29 Other ventricular tachycardia; Z88.0 Allergy status to penicillin; Z88.5 Allergy status to narcotic agent; Z88.8 Allergy status to other drugs, medicaments and biological substances; Z91.040 Latex allergy status; Z90.49 Acquired absence of other specified parts of digestive tract; Z90.710 Acquired absence of both cervix and uterus
CPT/HCPCS: 36415; 71275; 74174; 80053; 80305; 81003; 83690; 83735; 83880; 84484; 85025; 85610; 85730; 93005; 96365; 96375; 99291; A9270; J1644; Q9967; 93010; 99285; J3101